=== PATIENT | male | born 1935 | race Caucasian/White ===

== ENCOUNTER 2019-05-22 12:22 | Outpatient (CLI) | payer OTHER, SELFPAY ==
[2019-05-22 14:34] LABS: Basophils % 0.3 %; Eosinophils # 0.1 10^3/uL (0.0-0.8); Hemoglobin 9.7 g/dL (11.7-16.6); Lymphocytes # 0.4 10^3/uL (0.8-4.8); Lymphocytes % 10.7 %; Mean Corpuscular HGB Conc 31.3 g/dL (30.0-36.0); Mean Corpuscular Hemoglobin 30.4 pg (28.0-34.0); Mean Corpuscular Volume 97.2 fL (80-94); Mean Platelet Volume 10.8 fL (7.4-10.4); Monocytes # 0.3 10^3/uL (0.2-0.9); Monocytes % 7.9 %; Neutrophils # 3.1 10^3/uL (1.8-7.7); Neutrophils % 78.6 %; Nucleated Red Blood Cells % 0 %; Platelet Count 139 10^3/cmm (130-400); Red Blood Count 3.19 10^6/uL (4.1-5.3); Red Cell Distribution Width 14.6 % (12.1-15.1); White Blood Count 3.9 10^3/uL (4.0-10.0)
[2019-05-22 14:49] LABS: Alanine Aminotransferase 22 U/L (0-41); Albumin Level 3.8 g/dL (3.5-5.2); Alkaline Phosphatase 57 IU/L (40-130); Anion Gap 12.4 (5-19); Aspartate Amino Transferase 31 U/L (0-40); Blood Urea Nitrogen 33 mg/dL (8-23); Calcium 9.5 mg/dL (8.5-10.5); Carbon Dioxide 24 mmol/L (22-29); Chloride 106 mmol/L (98-107); Globulin 2.7 g/dL (1.3-4.6); Glucose 266 mg/dL (65-115); Lactate Dehydrogenase 234 U/L (135-225); Potassium 4.4 mmol/L (3.5-5.1); Sodium 138 mmol/L (136-145); Total Bilirubin 0.2 mg/dL (0.15-1.2); Total Protein 6.5 g/dL (6.6-8.7)
[2019-05-22 18:31] LABS: Hepatitis B Surface AB. 3.5 (0-8.5); Hepatitis B Surface Antigen. Non-Reactive (Nonreactive)
--- NOTE | 2019-05-22 19:17 | ONC FU_ITS ---
Dr. Patiño Patient Follow-Up Note Patient: Earle Curiel Unit #: [id number]: [id number] Dicatated By: Rich Patiño M.D.Date of Visit:May 22, 2019 Onc Med Follow-up/Prog Note Chief Complaint: Lymphoma. 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 On 07/26/2017 he was admitted to the hospital after nearly passing out at home. He had been having melena, and his stool FIT was positive. He had to be transfused 3 units of PRBC. He underwent EGD and colonoscopy on 07/28/2017. The colonoscopy was unremarkable except for a few small diverticuli in the distal sigmoid colon. The EGD showed a pedunculated, hyperplastic appearing gastric polyp measuring 3 x 3 mm. It was completely excised endoscopically. Also noted was a single cratered chronic malignant appearing gastric ulcers ranging in size from 4 to 6 mm. 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 The lymphoid cells were CD20 and BCL-2 positive. CD3, CD5, and CD10 staining was noted in scattered lymphoid cells. Cyclin D1 was negative. The Ki-67 proliferation index was estimated 10-15%. Helicobacter pylori was not identified in either biopsy on Diff Quik stain. His CT abdomen/pelvis on 07/26/2017 showed a moderate amount of pericardial fluid. There were very small bilateral pleural effusions. There was possibly some thickening of the lower esophagus. Small calcifications are seen throughout the pancreas suggestive of prior episodes of pancreatitis. There were a few borderline prominent mesenteric lymph nodes with very subtle increased attenuation in the surrounding mesenteric fat, appearance of which was felt to be nonspecific. There was no retroperitoneal adenopathy. Prostate was noted to be enlarged. Echocardiogram showed normal left ventricular function with ejection fraction estimated at 60%. There was grade 1 diastolic dysfunction. The pericardium appeared normal without effusion. I had seen him initially on 08/18/2017. 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 Lauren for radiation. He completed treatment on 11/26/2017 to a total dose of 3000 cGy. Repeat EGD on 02/22/2018 showed a hyperplastic appearing sessile polyp in the gastric body measuring 2 x 2 mm. It was removed endoscopically. There was evidence of gastritis and duodenitis. Pathology on the polyp showed benign polypoid gastric mucosa. The other gastric biopsies showed benign uniform gastric mucosa. There was no evidence of malignancy. Helicobacter pylori stains at both biopsy sites were negative. His other medical illnesses include hypertension, hyperlipidemia, type II diabetes, and benign prostatic hypertrophy. He was treated for tick fever in the past. He is a nonsmoker. INTERIM HISTORY: Surveillance CT of the abdomen/pelvis on 02/15/2019 showed enlarging central mesenteric lymph nodes, largest measuring 3.0 x 1.7 cm. These had increased in size and number compared to the prior CT from October 2018. Lobulated cysts or cyst within the right lobe of the liver measuring 3.5 cm appeared stable. Cardiomegaly and moderately sized circumferential pericardial effusion also appeared stable. The prostate was noted to be markedly enlarged. Further evaluation with restaging PET/CT on 05/06/2019 showed a new FDG avid central mesenteric mass measuring 5.5 x 3.5 cm, SUV 7.6, consistent with new will lymphoma. Smaller adjacent mesenteric lymph nodes were also FDG positive and consistent with lymphoma. There were additional small FDG positive nodes noted in the right internal mammary, anterior mediastinal, and right pre-vascular territories. Stomach activity was noted to be physiologic. He is seen for a follow-up visit. He says he is still feeling all right. He says he has been tired quite a bit, but he is doing light work. ECOG score is 1. Appetite is good and by our scale his weight is up 7 pounds since my initial visit with him. He does not have fever or night sweats. He does not complain of shortness of breath, cough, or chest pain. He has no GI complaints other than his stools are sometimes loose. He had seen a urologist for incomplete bladder emptying, and his bladder function had subsequently improved with medication. He has no significant joint or bone pain. He does not complain of headache or dizziness. He says he has lost use of his right index and middle fingers, but that was not anything recent. Medications: Acarbose 1 Tablet (of 100 mg) Oral t.i.d., Actos 1 Tablet (of 45 mg) Oral daily, Carafate 1 Tablet (of 1 G) Tablet Oral b.i.d., Ferrous Sulfate 1 Tablet (of 325 (65 fe) mg) Oral b.i.d., Lantus 31 Units (of 100 Units/mL) Subcutaneous every am, Lisinopril-Hydrochlorothiazide 1 Tablet (of 20-12.5 mg) Oral daily, Multi Vitamin/Minerals 1 Tablet Oral daily, Pantoprazole Sodium 1 Tablet (of 40 mg) Tablet, enteric coated Oral b.i.d., Simvastatin 1 Tablet (of 40 mg) Oral daily, Terazosin HCl 1 Capsule (of 2 mg) Oral b.i.d., Vitamin B-12 1 Tablet (of 1000 mcg) Oral daily Allergies: No Known Allergies. Review of Systems: Constitutional - His energy is low. He is doing light work. His appetite is good and his weight is up 5 pounds. No fever, chills, hot flashes, or night sweats. ECOG score is 1, ENMT - He has sinus drainage. No mouth sores. No sore throat or difficulty swallowing, Hematologic/Lymphatic - No abnormal bruising or bleeding, Respiratory - No shortness of breath. No cough. No pleuritic pain or hemoptysis, Cardiovascular - No angina pain. No palpitations, Gastrointestinal - No nausea or vomiting. No heartburn or acid reflux. He has occasional loose stools. No blood in the stool or black stools, Genitourinary (M) - He has seen a urologist for incomplete bladder emptying. His bladder function has improved. He has no dysuria or hematuria and no urgency or incontinence, Musculoskeletal - No joint or bone pain, Integumentary - No skin complications, Neurologic - No headache. He has occasional dizziness. He has numbness in his right index and middle fingers, Psychiatric - No anxiety or depression. No insomnia. Vital Signs: Performed on May 22, 2019 12:50 Height - 67.00 in Weight - 163.8 lbs (HIGH) BSA - 1.86 sq.m BMI - 25.65 Temperature - 97.7 F (LOW) Pulse - 84 /min Respiration - 14 /min BP - 132/60 mm(hg) O2 Sat - 96 % Pain - 0 Physical Examination: Constitutional - He looks a little bit weak generally, Eyes - Sclerae nonicteric. Conjunctivae clear, ENMT - No lesions noted in the oral cavity, Hematologic/Lymphatic - No cervical, clavicular, or axillary adenopathy, Respiratory - Lungs are clear with good air movement bilaterally, Cardiovascular - Heart rhythm is regular. There is no murmur, gallop, or rub noted, Abdomen - Soft. Liver and spleen are not enlarged. There is no abdominal mass or ascites noted and there is no inguinal adenopathy, Extremities - No edema, Integumentary - No rashes. No suspicious skin lesions noted, Neurologic - No focal neurologic deficits noted. Impression: 1. Patient with localized gastric marginal zone lymphoma, H. 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 2. He underwent treatment with radiation, completed on 11/26/2017 to a total dose of 3,000 cGy. He had a good response by followup EGD. 3. He presented with acute GI bleeding and he had moderately severe anemia. His other medical illnesses include: 4. Hypertension. 5. Hyperlipidemia. 6. Type II diabetes. 7. Benign prostatic hypertrophy. A surveillance CT of the abdomen/pelvis on 02/15/2019 showed enlarging central mesenteric lymph nodes, largest measuring 3.0 x 1.7 cm. Further evaluation with restaging PET/CT on 05/06/2019 showed a new FDG avid central mesenteric mass measuring 5.5 x 3.5 cm, SUV 7.6, consistent with new will lymphoma. Smaller adjacent mesenteric lymph nodes were also FDG positive and consistent with lymphoma. There were additional small FDG positive nodes noted in the right internal mammary, anterior mediastinal, and right pre-vascular territories. Stomach activity was noted to be physiologic. Overall, the findings are consistent with progression of the marginal zone lymphoma, now involving lymph nodes on both sides of the diaphragm. Plan: The CT and PET/CT findings were reviewed with the patient. We discussed the clinical implications. He has had progression of the lymphoma, though he does not appear to be overtly symptomatic with it. By clinical evaluation, it was appear likely that he still has low-grade disease, and he has recommended to undergo treatment with 4-6 cycles of bendamustine/rituximab. He will have baseline laboratory studies today to include CBC, comprehensive metabolic profile, LDH level, and hepatitis B screening. He prefers to wait until the first week of June to begin his treatment. I will attempt to administer it through peripheral IV. Signed By: Rich Patiño M.D. <<Signature on File>>
[2019-05-23 16:57] LABS: Iron 77 ug/dL (59-158); Percent Saturation 34.3 % (20-50); Total Iron Binding Capacity 224 mcg/dl; Unsaturated Iron Binding 147 ug/dL (112-347); Vitamin B12 748 pg/mL (232-1245)
== END 2019-05-22 12:23 | disposition home or self-care (01) ==
PROVIDERS: Family Provider Emergency Medicine Emergency Medical Services; PCP Emergency Medicine Emergency Medical Services; Visit Provider Internal Medicine Medical Oncology
DX: C83.08 Small cell B-cell lymphoma, lymph nodes of multiple sites (principal); I10 Essential (primary) hypertension; E78.5 Hyperlipidemia, unspecified; E11.9 Type 2 diabetes mellitus without complications; N40.0 Benign prostatic hyperplasia without lower urinary tract symptoms; I51.7 Cardiomegaly; Z79.4 Long term (current) use of insulin; Z79.899 Other long term (current) drug therapy; Z92.3 Personal history of irradiation
CPT/HCPCS: 36415; 80053; 82607; 83540; 83550; 83615; 85025; 86705; 86706; 87340; 99214

== ENCOUNTER 2019-06-08 10:03 | Day surgery (SDC) | payer OTHER, SELFPAY ==
--- NOTE | 2019-06-08 10:32 | ANES.PREANE2 ---
Pre-Anesthetic Assessment Pre-Anesthetic Assessment: Height/Weight: Height 1.7 m Weight 74.298 kg Preop Diagnosis: Lymphoma Proposed Procedure: Operation Date: 06/08/19 11:30 Proposed Procedures p Bone Marrow Biospy With Aspiration(Not Applicable) - Kirt Arcos MD Last Intake: 21:00 Exam: Pre-Anes Outpt Exam: alert, oriented x 3, clear to auscultation bilaterally and regular rate & rhythm Airway: Submandibular: WNL Cervical ROM: WNL MP: 1 Dentition: Caps CV/HEM: CV/HEM: HTN Comments: rx'd x 2y 2 blocks/2 FOSwithout angina/MATTSON : Comments: BPH GI: GI: GERD Comments: GI bleed transfused 3y ago Metabolic: Metabolic: DM (rx'd x 12y, normally ) and Hyperlipidemia Comments: normally 100-220, bottoms out 1x/week Anesthetic Plan: ASA status: 3 Anesthesia: MAC Data Anesthesia Cardiac Studies: No Data to Display
[2019-06-08 10:53] VITALS: BMI 25.3
[2019-06-08 11:02] VITALS: BP 131/96; PULSE 68; RESP 18; TEMP 36.3; O2SAT 97
[2019-06-08] MEDS: sodium chloride 0.9% 1,000 ML 30 ML (11:06)
[2019-06-08 11:11] LABS: Glucose Point of Care 149 mg/dL (70-110)
--- NOTE | 2019-06-08 12:00 | P.PCN_ITS ---
Bone Marrow Biopsy Bone Marrow Biopsy: I was consulted by [] office regarding bone marrow biopsy on Earle Oliveira. Briefly, the patient is a [83] year old Male with History of non-Hodgkin lymphoma now with anemia and recurrence of disease[]. In the Outpatient Services Department, with nursing staff and laboratory parvin hnologists in attendance, the procedure was discussed with the patient. Appropriate consent form had been signed. Appropriate alternatives, benefits and risks of procedure were discussed with the patient and he was pre- operatively assessed with a history and physical by myself and cleared for the biopsy procedure. The patient did request IV sedation and that was provided by the Anesthesia Department. And right posterior iliac area was prepared under aseptic condition, local anesthesia was given and about 15 mL of bone marrow aspirate and core biopsy was obtained, specimen was sent for routine histopathology, flow cytometry, cytogenetics and FISH for MDS. Patient tolerated procedure well and postprocedure instructions were given to the nursing. Thank you for allowing me to participate in this patient's care and diagnosis. Coding Level of Care Code Acute Bike Mechanic for Zainab Rashid
[2019-06-08 12:20] VITALS: BP 112/60; PULSE 64; RESP 16; TEMP 36.8; O2SAT 96
--- NOTE | 2019-06-08 12:34 | ANE.PACU2 ---
 Inpatient post-anesthesia follow up: Airway intact: Yes Vital signs: Temperature 98.2 F Pulse Rate 64 Respiratory Rate 16 Blood Pressure 112/60 Pulse Oximetry 96 Oxygen Delivery Me thod Nasal Cannula Oxygen Flow Rate 2 Fraction of Inspir ed Oxygen Hydration adequate: Yes Nausea and vomiting: No Pain level: 2 Mental status: Baseline
[2019-06-08 12:36] VITALS: BP 121/67; PULSE 66; RESP 18; O2SAT 96
--- NOTE | 2019-06-08 13:37 | ANE.PACU2 ---
 Inpatient post-anesthesia follow up: Vital signs: Temperature 98.2 F Pulse Rate 66 Respiratory Rate 18 Blood Pressure 121/67 Pulse Oximetry 96 Oxygen Delivery Me thod Room Air Oxygen Flow Rate 2 Fraction of Inspir ed Oxygen Hydration adequate: Yes
[2019-06-09 11:05] LABS: Hematocrit 33.6 % (42.0-52.0); Hemoglobin 10.5 g/dL (11.7-16.6); Mean Corpuscular HGB Conc 31.3 g/dL (30.0-36.0); Mean Corpuscular Hemoglobin 31.3 pg (28.0-34.0); Mean Corpuscular Volume 100.3 fL (80-94); Mean Platelet Volume 10.8 fL (7.4-10.4); Platelet Count 151 10^3/cmm (130-400); Red Blood Count 3.35 10^6/uL (4.1-5.3); Red Cell Distribution Width 14.7 % (12.1-15.1); White Blood Count 4.2 10^3/uL (4.0-10.0)
[2019-06-09 12:21] LABS: Band Neutrophils Absolute 0.7 10^3/cmm (0.0-1.2); Eosinophils 2 %; Lymphocytes 3 %; Monocytes Absolute 0.3 10^3/cmm (0.1-0.6); Platelet Estimate Normal (Normal); Segmented Neutrophils 72 %; Total Cells Counted 100 (0-100)
[2019-06-14 13:13] LABS: Miscellaneous Test See Scanned Lab Rpt
[2019-06-16 09:16] LABS: Miscellaneous Test See Scanned Lab Rpt
[2019-06-21 12:49] LABS: Clinical Indication See Report; Specimen Type See Report
== END 2019-06-08 12:59 | disposition home or self-care (01) ==
PROVIDERS: Family Provider Emergency Medicine Emergency Medical Services; PCP Emergency Medicine Emergency Medical Services; Visit Provider Internal Medicine Hematology & Oncology
PROC: 07DT3ZX Extraction of Bone Marrow, Percutaneous Approach, Diagnostic (ICD-10-PCS; CPT 38222; principal; 2019-06-08 11:30)
DX: C85.88 Other specified types of non-Hodgkin lymphoma, lymph nodes of multiple sites (principal); C88.4 Extranodal marginal zone B-cell lymphoma of mucosa-associated lymphoid tissue [MALT-lymphoma]; D64.9 Anemia, unspecified; I10 Essential (primary) hypertension; N40.0 Benign prostatic hyperplasia without lower urinary tract symptoms; K21.9 Gastro-esophageal reflux disease without esophagitis; E11.9 Type 2 diabetes mellitus without complications; E78.5 Hyperlipidemia, unspecified
CPT/HCPCS: 12345; 36415; 36416; 38222; 82962; 85007; 85027; 85097; 88237; 88264; 88305; 88311; 88313; 88367; 88374; J2704; J7030

== ENCOUNTER 2019-06-09 12:21 | Outpatient (CLI) | payer OTHER, SELFPAY | END 2019-06-09 12:22 | disposition home or self-care (01) | LOC: ONCMED 12:22 | PROVIDERS: Family Provider Emergency Medicine Emergency Medical Services; PCP Emergency Medicine Emergency Medical Services; Visit Provider Internal Medicine Medical Oncology | DX: Z01.89 Encounter for other specified special examinations (principal) ==

== ENCOUNTER 2019-06-30 06:29 | Outpatient (RCR) | payer OTHER, SELFPAY ==
[2019-06-28 16:53] LABS: Basophils % 0.2 %; Eosinophils # 0.1 10^3/uL (0.0-0.8); Eosinophils % 1.8 %; Hematocrit 33.9 % (42.0-52.0); Hemoglobin 10.4 g/dL (11.7-16.6); Lymphocytes # 0.4 10^3/uL (0.8-4.8); Lymphocytes % 9.4 %; Mean Corpuscular HGB Conc 30.7 g/dL (30.0-36.0); Mean Corpuscular Hemoglobin 30.8 pg (28.0-34.0); Mean Corpuscular Volume 100.3 fL (80-94); Mean Platelet Volume 11.4 fL (7.4-10.4); Monocytes # 0.4 10^3/uL (0.2-0.9); Monocytes % 8.1 %; Neutrophils # 3.6 10^3/uL (1.8-7.7); Neutrophils % 80.1 %; Nucleated Red Blood Cells % 0 %; Platelet Count 148 10^3/cmm (130-400); Red Blood Count 3.38 10^6/uL (4.1-5.3); Red Cell Distribution Width 14.6 % (12.1-15.1); White Blood Count 4.5 10^3/uL (4.0-10.0)
[2019-06-28 16:58] LABS: Alanine Aminotransferase 22 U/L (0-41); Albumin Level 4.2 g/dL (3.5-5.2); Alkaline Phosphatase 56 IU/L (40-130); Anion Gap 15.6 (5-19); Aspartate Amino Transferase 26 U/L (0-40); Blood Urea Nitrogen 31 mg/dL (8-23); Calcium 9.6 mg/dL (8.5-10.5); Carbon Dioxide 25 mmol/L (22-29); Chloride 106 mmol/L (98-107); Glucose 154 mg/dL (65-115); Osmolality Calculated 294 mOsm/kg (285-295); Potassium 4.6 mmol/L (3.5-5.1); Sodium 142 mmol/L (136-145); Total Bilirubin 0.4 mg/dL (0.15-1.2); Total Protein 6.2 g/dL (6.6-8.7)
[2019-06-29] MEDS: acetaminophen 325 mg Tablet 650 MG PO (10:51)
[2019-06-29] MEDS: sodium chloride 0.9% 1,000 ML 75 ML IV (11:47)
--- NOTE | 2019-06-29 16:52 | ONC FU_ITS ---
Dr. Patiño Patient Follow-Up Note Patient: Earle Curiel Unit #: [id number]: [id number] Dicatated By: Rich Patiño M.D.Date of Visit:Jun 29, 2019 Onc Med Follow-up/Prog Note Chief Complaint: Lymphoma. 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 On 07/26/2017 he was admitted to the hospital after nearly passing out at home. He had been having melena, and his stool FIT was positive. He had to be transfused 3 units of PRBC. He underwent EGD and colonoscopy on 07/28/2017. The colonoscopy was unremarkable except for a few small diverticuli in the distal sigmoid colon. The EGD showed a pedunculated, hyperplastic appearing gastric polyp measuring 3 x 3 mm. It was completely excised endoscopically. Also noted was a single cratered chronic malignant appearing gastric ulcers ranging in size from 4 to 6 mm. 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 The lymphoid cells were CD20 and BCL-2 positive. CD3, CD5, and CD10 staining was noted in scattered lymphoid cells. Cyclin D1 was negative. The Ki-67 proliferation index was estimated 10-15%. Helicobacter pylori was not identified in either biopsy on Diff Quik stain. His CT abdomen/pelvis on 07/26/2017 showed a moderate amount of pericardial fluid. There were very small bilateral pleural effusions. There was possibly some thickening of the lower esophagus. Small calcifications are seen throughout the pancreas suggestive of prior episodes of pancreatitis. There were a few borderline prominent mesenteric lymph nodes with very subtle increased attenuation in the surrounding mesenteric fat, appearance of which was felt to be nonspecific. There was no retroperitoneal adenopathy. Prostate was noted to be enlarged. Echocardiogram showed normal left ventricular function with ejection fraction estimated at 60%. There was grade 1 diastolic dysfunction. The pericardium appeared normal without effusion. I had seen him initially on 08/18/2017. 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 Lauren for radiation. He completed treatment on 11/26/2017 to a total dose of 3000 cGy. Repeat EGD on 02/22/2018 showed a hyperplastic appearing sessile polyp in the gastric body measuring 2 x 2 mm. It was removed endoscopically. There was evidence of gastritis and duodenitis. Pathology on the polyp showed benign polypoid gastric mucosa. The other gastric biopsies showed benign uniform gastric mucosa. There was no evidence of malignancy. Helicobacter pylori stains at both biopsy sites were negative. He continued on observation/expectant management. Surveillance CT of the abdomen/pelvis on 02/15/2019 showed enlarging central mesenteric lymph nodes, largest measuring 3.0 x 1.7 cm. These had increased in size and number compared to the prior CT from October 2018. Lobulated cysts or cyst within the right lobe of the liver measuring 3.5 cm appeared stable. Cardiomegaly and moderately sized circumferential pericardial effusion also appeared stable. The prostate was noted to be markedly enlarged. Further evaluation with restaging PET/CT on 05/06/2019 showed a new FDG avid central mesenteric mass measuring 5.5 x 3.5 cm, SUV 7.6, consistent with new will lymphoma. Smaller adjacent mesenteric lymph nodes were also FDG positive and consistent with lymphoma. There were additional small FDG positive nodes noted in the right internal mammary, anterior mediastinal, and right pre-vascular territories. Stomach activity was noted to be physiologic. I had seen him for a follow-up visit on 05/22/2019. As he had definite PET/CT evidence of disease progression, he was recommended to undergo a course of chemotherapy with bendamustine/Rituxan. He had preferred to delay starting treatment for at least a month. However, at that time, it was noted that he was still moderately anemic with hemoglobin 9.7 g. The red cell indices were slightly macrocytic. B12 was normal at 748 pg/mL and the transferrin saturation was normal at 34%. With those findings he underwent bone marrow aspiration/biopsy on 06/08/2019. There were no diagnostic findings. The cellularity was relatively low at 10 to 20%, but with trilineage hematopoiesis and mild erythroid hyperplasia. There were no dysplastic changes noted. There was no evidence of involvement with lymphoma. There was abundant storage iron. The chromosome analysis was normal and the FISH panel for MDS was unrevealing. His other medical illnesses include hypertension, hyperlipidemia, type II diabetes, and benign prostatic hypertrophy. He was treated for tick fever in the past. He is a nonsmoker. INTERIM HISTORY: He returns now to initiate treatment. He has been feeling a little better generally. He says his energy is better, and he pretty much has normal activity. ECOG score is 0. He has good appetite. He complains that his stomach is getting bigger. He has not had fever or night sweats. He has no shortness of breath or cough. He has had pain occasionally in the left chest area. It tends to occur after more strenuous activity, but it does sound muscular. He has no GI complaints other than his bowels are sometimes runny. He has some urgency with urination and he has incomplete bladder emptying. He has no significant joint or bone pain. He has no headache or dizziness. He has lost use of his right index and middle fingers from previous injury. He has no other focal neurologic symptoms. Medications: Acarbose 1 Tablet (of 100 mg) Oral t.i.d., Actos 1 Tablet (of 45 mg) Oral daily, Ferrous Sulfate 1 Tablet (of 325 (65 fe) mg) Oral b.i.d., Ferrous Sulfate 1 Tablet (of 325 (65 fe) mg) Oral daily, Insulin Glargine Subcutaneous t.i.d., Lisinopril-Hydrochlorothiazide 1 Tablet (of 20-12.5 mg) Oral daily, Multi Vitamin/Minerals 1 Tablet Oral daily, NovoLIN 70/30 Subcutaneous t.i.d., Pantoprazole Sodium 1 Tablet (of 40 mg) Tablet, enteric coated Oral b.i.d., Simvastatin 1 Tablet (of 80 mg) Oral daily, Terazosin HCl 1 Capsule (of 2 mg) Oral b.i.d., Vitamin B-12 1 Tablet (of 1000 mcg) Oral daily Allergies: No Known Allergies. Review of Systems: Constitutional - His energy level is overall good. He is able to his normal activities at home. His appetite is good and weight is stable. No fever, chills, hot flashes, or night sweats. ECOG score is 0, ENMT - He has seasonal allergies No mouth sores. No sore throat or difficulty swallowing, Hematologic/Lymphatic - No abnormal bruising or bleeding, Respiratory - No shortness of breath. No cough. No pleuritic pain or hemoptysis, Cardiovascular - No angina pain. No palpitations, Gastrointestinal - No nausea or vomiting. No heartburn or acid reflux. He is having occasional loose stools. No constipation. No blood in the stool or black stools, Genitourinary (M) - No dysuria or hematuria. No urinary frequency. He has urgency and does not feel he is completely emptying his bladder. No incontinence, Musculoskeletal - He occasinally has pain in his left chest area. It tends to occur after more strenuous activity, Integumentary - No skin complications, Neurologic - No headache or dizziness. He has loss of sensation and use of his right index and middle fingers, Psychiatric - No anxiety or depression. No insomnia. Vital Signs: Performed on Jun 29, 2019 09:51 Height - 67.00 in Weight - 161.0 lbs (LOW) BSA - 1.84 sq.m BMI - 25.22 Temperature - 98.2 F (LOW) Pulse - 86 /min Respiration - 20 /min BP - 149/71 mm(hg) (HIGH) O2 Sat - 100 % Pain - 0 Physical Examination: Constitutional - He looks pretty good generally, Eyes - Sclerae nonicteric. Conjunctivae clear, ENMT - No lesions noted in the oral cavity, Hematologic/Lymphatic - No cervical, clavicular, or axillary adenopathy, Respiratory - Lungs are clear with good air movement bilaterally, Cardiovascular - Heart rhythm is regular. There is no murmur, gallop, or rub noted, Abdomen - Soft. Liver and spleen are not enlarged. There is no abdominal mass or ascites noted and there is no inguinal adenopathy, Extremities - No edema, Neurologic - No focal neurologic deficits noted. Lab/Imaging: White blood cell count 4500, and platelet count 148,000.CBC shows hemoglobin 10.4 g, comprehensive metabolic profile shows elevated BUN and creatinine at 31 and 1.4 mg/dL, similar to previous studies. Bilirubin and liver enzymes are normal. Impression: 1. 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 2. He underwent treatment with radiation, completed on 11/26/2017 to a total dose of 3,000 cGy. He had a good response by followup EGD. 3. He had evidence of disease progression PET/CT in May 2019 with multiple sites of lymph node involvement. 4. He has persistent anemia of unclear etiology. His bone marrow aspiration/biopsy on 06/08/2019 showed no diagnostic findings. His other medical illnesses include: 5. Hypertension. 6. Hyperlipidemia. 7. Type II diabetes. 8. Benign prostatic hypertrophy. Plan: He will now begin his first cycle of treatment with bendamustine/rituximab, administered on days 1 and 2 of a 28-day cycle. The plan will be to administer 4-6 cycles, depending on response and tolerance. I reviewed anticipated side effects with the chemotherapy which may include nausea, fatigue, alopecia, and low blood counts, among others. I reviewed the potential for fever/chills or other symptoms of infusion reaction with the rituximab and we also discussed the fact that it may cause some weakening of his immune system. He is aware that his anti-medic will include steroid and that it will likely increase his blood sugar for at least the next day or 2. His blood counts will be monitored weekly. He will be scheduled for a follow-up visit in 4 weeks. Signed By: Rich Patiño M.D. <<Signature on File>>
[2019-06-30] MEDS: sodium chloride 0.9% 250 ML IV (10:16)
[2019-06-30] MEDS: palonosetron 0.25 mg/5 mL SDV IV (10:16)
== END 2019-07-04 23:59 | disposition home or self-care (01) ==
LOC: ONCMED 06:29
PROVIDERS: Family Provider Emergency Medicine Emergency Medical Services; PCP Emergency Medicine Emergency Medical Services; Visit Provider Internal Medicine Medical Oncology
DX: Z51.12 Encounter for antineoplastic immunotherapy (principal); Z51.11 Encounter for antineoplastic chemotherapy; C83.09 Small cell B-cell lymphoma, extranodal and solid organ sites; I10 Essential (primary) hypertension; E78.5 Hyperlipidemia, unspecified; E11.9 Type 2 diabetes mellitus without complications; N40.0 Benign prostatic hyperplasia without lower urinary tract symptoms; Z79.4 Long term (current) use of insulin; Z79.899 Other long term (current) drug therapy; Z92.3 Personal history of irradiation
CPT/HCPCS: 80053; 85025; 96367; 96375; 96413; 96415; 96417; 99214; J1100; J1200; J2405; J2469; J7030; J7040; J7050; J9034; J9312

== ENCOUNTER 2019-08-03 12:20 | Outpatient (RCR) | payer OTHER, SELFPAY ==
[2019-07-05 15:41] LABS: Eosinophils # 0.1 10^3/uL (0.0-0.8); Eosinophils % 1.6 %; Hematocrit 30.8 % (42.0-52.0); Hemoglobin 9.6 g/dL (11.7-16.6); Lymphocytes # 0.1 10^3/uL (0.8-4.8); Lymphocytes % 1.3 %; Mean Corpuscular HGB Conc 31.2 g/dL (30.0-36.0); Mean Corpuscular Hemoglobin 31.2 pg (28.0-34.0); Monocytes # 0.3 10^3/uL (0.2-0.9); Monocytes % 6.7 %; Neutrophils # 3.4 10^3/uL (1.8-7.7); Neutrophils % 89.9 %; Nucleated Red Blood Cells % 0 %; Platelet Count 125 10^3/cmm (130-400); Red Blood Count 3.08 10^6/uL (4.1-5.3); Red Cell Distribution Width 14.6 % (12.1-15.1); White Blood Count 3.8 10^3/uL (4.0-10.0)
[2019-07-12 18:21] LABS: Basophils % 0.3 %; Eosinophils # 0.1 10^3/uL (0.0-0.8); Hematocrit 30.9 % (42.0-52.0); Hemoglobin 9.6 g/dL (11.7-16.6); Lymphocytes # 0.3 10^3/uL (0.8-4.8); Lymphocytes % 6.8 %; Mean Corpuscular HGB Conc 31.1 g/dL (30.0-36.0); Mean Corpuscular Hemoglobin 31.2 pg (28.0-34.0); Mean Corpuscular Volume 100.3 fL (80-94); Mean Platelet Volume 11.6 fL (7.4-10.4); Monocytes # 0.5 10^3/uL (0.2-0.9); Monocytes % 12.1 %; Neutrophils # 3.1 10^3/uL (1.8-7.7); Neutrophils % 78.5 %; Nucleated Red Blood Cells % 0 %; Platelet Count 131 10^3/cmm (130-400); Red Blood Count 3.08 10^6/uL (4.1-5.3); Red Cell Distribution Width 14.8 % (12.1-15.1)
[2019-07-19 17:11] LABS: Eosinophils # 0.1 10^3/uL (0.0-0.8); Eosinophils % 1.4 %; Hematocrit 29.9 % (42.0-52.0); Hemoglobin 9.5 g/dL (11.7-16.6); Lymphocytes # 0.2 10^3/uL (0.8-4.8); Lymphocytes % 4.3 %; Mean Corpuscular HGB Conc 31.8 g/dL (30.0-36.0); Mean Corpuscular Volume 100.7 fL (80-94); Mean Platelet Volume 11.6 fL (7.4-10.4); Monocytes # 0.4 10^3/uL (0.2-0.9); Monocytes % 11.3 %; Neutrophils # 2.9 10^3/uL (1.8-7.7); Neutrophils % 82.4 %; Nucleated Red Blood Cells % 0 %; Platelet Count 120 10^3/cmm (130-400); Red Blood Count 2.97 10^6/uL (4.1-5.3); Red Cell Distribution Width 14.7 % (12.1-15.1); White Blood Count 3.5 10^3/uL (4.0-10.0)
[2019-07-19 18:35] LABS: Alanine Aminotransferase 19 U/L (0-41); Alkaline Phosphatase 54 IU/L (40-130); Anion Gap 15.4 (5-19); Aspartate Amino Transferase 25 U/L (0-40); Blood Urea Nitrogen 23 mg/dL (8-23); Calcium 9.5 mg/dL (8.5-10.5); Carbon Dioxide 23 mmol/L (22-29); Chloride 107 mmol/L (98-107); Globulin 2.1 g/dL (1.3-4.6); Glucose 164 mg/dL (65-115); Lactate Dehydrogenase 220 U/L (135-225); Osmolality Calculated 292 mOsm/kg (285-295); Potassium 4.4 mmol/L (3.5-5.1); Sodium 141 mmol/L (136-145); Total Bilirubin 0.4 mg/dL (0.15-1.2); Total Protein 6.1 g/dL (6.6-8.7)
[2019-07-26 19:31] LABS: Basophils % 0.3 %; Eosinophils # 0.1 10^3/uL (0.0-0.8); Eosinophils % 3.1 %; Hematocrit 32.4 % (42.0-52.0); Hemoglobin 9.8 g/dL (11.7-16.6); Lymphocytes # 0.2 10^3/uL (0.8-4.8); Lymphocytes % 6.5 %; Mean Corpuscular HGB Conc 30.2 g/dL (30.0-36.0); Mean Corpuscular Hemoglobin 30.2 pg (28.0-34.0); Mean Corpuscular Volume 99.7 fL (80-94); Monocytes # 0.4 10^3/uL (0.2-0.9); Monocytes % 10.8 %; Neutrophils # 2.6 10^3/uL (1.8-7.7); Nucleated Red Blood Cells % 0 %; Platelet Count 111 10^3/cmm (130-400); Red Blood Count 3.25 10^6/uL (4.1-5.3); Red Cell Distribution Width 14.7 % (12.1-15.1); White Blood Count 3.3 10^3/uL (4.0-10.0)
[2019-07-26 20:09] LABS: Alanine Aminotransferase 20 U/L (0-41); Albumin Level 4.2 g/dL (3.5-5.2); Alkaline Phosphatase 54 IU/L (40-130); Anion Gap 17.8 (5-19); Aspartate Amino Transferase 30 U/L (0-40); Blood Urea Nitrogen 31 mg/dL (8-23); Calcium 9.5 mg/dL (8.5-10.5); Carbon Dioxide 22 mmol/L (22-29); Chloride 103 mmol/L (98-107); Globulin 2.5 g/dL (1.3-4.6); Glucose 220 mg/dL (65-115); Lactate Dehydrogenase 261 U/L (135-225); Osmolality Calculated 290 mOsm/kg (285-295); Potassium 4.8 mmol/L (3.5-5.1); Sodium 138 mmol/L (136-145); Total Bilirubin 0.3 mg/dL (0.15-1.2); Total Protein 6.7 g/dL (6.6-8.7)
[2019-07-27] MEDS: acetaminophen 325 mg Tablet 650 MG PO (11:30)
[2019-07-27] MEDS: sodium chloride 0.9% 500 ML 75 ML IV (12:00)
[2019-07-28] MEDS: sodium chloride 0.9% 100 ML 75 ML IV (09:35)
[2019-07-28] MEDS: palonosetron 0.25 mg/5 mL SDV IV (09:38)
--- NOTE | 2019-07-29 09:46 | ONC FU_ITS ---
Dr. Patiño Patient Follow-Up Note Patient: Earle Curiel Unit #: [id number]: [id number] Dicatated By: Rich Patiño M.D.Date of Visit:Jul 27, 2019 Onc Med Follow-up/Prog Note Chief Complaint: Lymphoma. 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 On 07/26/2017 he was admitted to the hospital after nearly passing out at home. He had been having melena, and his stool FIT was positive. He had to be transfused 3 units of PRBC. He underwent EGD and colonoscopy on 07/28/2017. The colonoscopy was unremarkable except for a few small diverticuli in the distal sigmoid colon. The EGD showed a pedunculated, hyperplastic appearing gastric polyp measuring 3 x 3 mm. It was completely excised endoscopically. Also noted was a single cratered chronic malignant appearing gastric ulcers ranging in size from 4 to 6 mm. 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 The lymphoid cells were CD20 and BCL-2 positive. CD3, CD5, and CD10 staining was noted in scattered lymphoid cells. Cyclin D1 was negative. The Ki-67 proliferation index was estimated 10-15%. Helicobacter pylori was not identified in either biopsy on Diff Quik stain. His CT abdomen/pelvis on 07/26/2017 showed a moderate amount of pericardial fluid. There were very small bilateral pleural effusions. There was possibly some thickening of the lower esophagus. Small calcifications are seen throughout the pancreas suggestive of prior episodes of pancreatitis. There were a few borderline prominent mesenteric lymph nodes with very subtle increased attenuation in the surrounding mesenteric fat, appearance of which was felt to be nonspecific. There was no retroperitoneal adenopathy. Prostate was noted to be enlarged. Echocardiogram showed normal left ventricular function with ejection fraction estimated at 60%. There was grade 1 diastolic dysfunction. The pericardium appeared normal without effusion. I had seen him initially on 08/18/2017. 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 Lauren for radiation. He completed treatment on 11/26/2017 to a total dose of 3000 cGy. Repeat EGD on 02/22/2018 showed a hyperplastic appearing sessile polyp in the gastric body measuring 2 x 2 mm. It was removed endoscopically. There was evidence of gastritis and duodenitis. Pathology on the polyp showed benign polypoid gastric mucosa. The other gastric biopsies showed benign uniform gastric mucosa. There was no evidence of malignancy. Helicobacter pylori stains at both biopsy sites were negative. He continued on observation/expectant management. Surveillance CT of the abdomen/pelvis on 02/15/2019 showed enlarging central mesenteric lymph nodes, largest measuring 3.0 x 1.7 cm. These had increased in size and number compared to the prior CT from October 2018. Lobulated cysts or cyst within the right lobe of the liver measuring 3.5 cm appeared stable. Cardiomegaly and moderately sized circumferential pericardial effusion also appeared stable. The prostate was noted to be markedly enlarged. Further evaluation with restaging PET/CT on 05/06/2019 showed a new FDG avid central mesenteric mass measuring 5.5 x 3.5 cm, SUV 7.6, consistent with new will lymphoma. Smaller adjacent mesenteric lymph nodes were also FDG positive and consistent with lymphoma. There were additional small FDG positive nodes noted in the right internal mammary, anterior mediastinal, and right pre-vascular territories. Stomach activity was noted to be physiologic. I had seen him for a follow-up visit on 05/22/2019. As he had definite PET/CT evidence of disease progression, he was recommended to undergo a course of chemotherapy with bendamustine/Rituxan. He had preferred to delay starting treatment for at least a month. However, at that time, it was noted that he was still moderately anemic with hemoglobin 9.7 g. The red cell indices were slightly macrocytic. B12 was normal at 748 pg/mL and the transferrin saturation was normal at 34%. With those findings he underwent bone marrow aspiration/biopsy on 06/08/2019. There were no diagnostic findings. The cellularity was relatively low at 10 to 20%, but with trilineage hematopoiesis and mild erythroid hyperplasia. There were no dysplastic changes noted. There was no evidence of involvement with lymphoma. There was abundant storage iron. The chromosome analysis was normal and the FISH panel for MDS was unrevealing. His other medical illnesses include hypertension, hyperlipidemia, type II diabetes, and benign prostatic hypertrophy. He was treated for tick fever in the past. He is a nonsmoker. INTERIM HISTORY: He returned to begin cycle 1 of bendamustine/rituximab on 06/29/2019. He tolerated the initial infusion of rituximab with no adverse effects. He is seen for a follow-up visit. He has been feeling good generally. At times he has noticed some decrease in his energy level, but he still has normal activity. ECOG score 0. He also felt a little queasy for a couple of days. His appetite has been good. He has no fever or night sweats. He has had no mouth sores. He has no shortness of breath, cough, or chest pain. He has no other GI or complaints. He has no significant joint or bone pain. He has had some numbness in his right index and middle fingers, but that is not new. He has no other focal neurologic symptoms. Medications: Acarbose 1 Tablet (of 100 mg) Oral t.i.d., Actos 1 Tablet (of 45 mg) Oral daily, Ferrous Sulfate 1 Tablet (of 325 (65 fe) mg) Oral daily, Insulin Glargine 15 Units Subcutaneous t.i.d., Lisinopril-Hydrochlorothiazide 1 Tablet (of 20-12.5 mg) Oral daily, Multi Vitamin/Minerals 1 Tablet Oral daily, NovoLIN 70/30 Subcutaneous t.i.d., Pantoprazole Sodium 1 Tablet (of 40 mg) Tablet, enteric coated Oral b.i.d., Simvastatin 1 Tablet (of 80 mg) Oral daily, Terazosin HCl 1 Capsule (of 2 mg) Oral b.i.d., Vitamin B-12 1 Tablet (of 1000 mcg) Oral daily Allergies: No Known Allergies. Review of Systems: Constitutional - His energy has decreased, and he is resting more than usual, but he is still able to do normal activities. His appetite is good and weight is stable. No fever, chills, hot flashes, or night sweats. ECOG score is 0, ENMT - No sinus congestion/drainage. No mouth sores. No sore throat or difficulty swallowing, Hematologic/Lymphatic - No abnormal bruising or bleeding, Respiratory - No shortness of breath. No cough. No pleuritic pain or hemoptysis, Cardiovascular - No angina pain. No palpitations, Gastrointestinal - He has had just very slight nausea. No heartburn or acid reflux. No diarrhea or constipation. No blood in the stool or black stools, Genitourinary (M) - No dysuria or hematuria. No urinary frequency. No urgency or incontinence, Musculoskeletal - No joint or bone pain, Integumentary - No skin complications, Neurologic - No headache or dizziness. He has loss of sensation and use of his right index and middle fingers, Psychiatric - No anxiety or depression. No insomnia. Vital Signs: Performed on Jul 27, 2019 10:22 Height - 67.00 in Weight - 161.2 lbs (HIGH) BSA - 1.84 sq.m BMI - 25.25 Temperature - 97.6 F (LOW) Pulse - 86 /min Respiration - 18 /min BP - 115/60 mm(hg) O2 Sat - 97 % Pain - 0 Physical Examination: Constitutional - He looks pretty good generally, Eyes - Sclerae nonicteric. Conjunctivae clear, ENMT - No lesions noted in the oral cavity, Hematologic/Lymphatic - No cervical, clavicular, or axillary adenopathy, Respiratory - Lungs are clear with good air movement bilaterally, Cardiovascular - Heart rhythm is regular. There is no murmur, gallop, or rub noted, Abdomen - Soft. Liver and spleen are not enlarged. There is no abdominal mass or ascites noted and there is no inguinal adenopathy, Extremities - No edema, Neurologic - No focal neurologic deficits noted. Lab/Imaging: Test performed on Jul 26, 2019 12:52 WBC 3.3 10 3/uL RBC 3.25 10 6/uL HGB 9.8 g/dL HCT 32.4 % MCV 99.7 fL MCH 30.2 pg MCHC 30.2 g/dL RDW 14.7 % Platelet Count 111 10 3/cmm MPV 12.0 fL Neutrophils 2.6 10 3/uL Lymphocytes 0.2 10 3/uL Monocytes 0.4 10 3/uL Eosinophils 0.1 10 3/uL Basophils 0.0 10 3/uL Neutrophil % 79.0 % Lymphocyte % 6.5 % Monocyte % 10.8 % Eosinophil % 3.1 % Basophils % 0.3 % Impression: 1. 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 2. He underwent treatment with radiation, completed on 11/26/2017 to a total dose of 3,000 cGy. He had a good response by followup EGD. 3. He had evidence of disease progression PET/CT in May 2019 with multiple sites of lymph node involvement. 4. He has persistent anemia of unclear etiology. His bone marrow aspiration/biopsy on 06/08/2019 showed no diagnostic findings. His other medical illnesses include: 5. Hypertension. 6. Hyperlipidemia. 7. Type II diabetes. 8. Benign prostatic hypertrophy. He began cycle 1 of bendamustine/rituximab on 06/29/2019. He he tolerated it well. Side effects limited to just mild fatigue and very mild nausea. He had no other adverse effect. His blood counts remain adequate. Plan: He will proceed with cycle 2 of bendamustine/rituximab. The dosages remain the same. Blood counts will be monitored weekly. He returns in 4 weeks. Signed By: Rich Patiño M.D. <<Signature on File>>
[2019-08-03 15:07] LABS: Basophils % 0.3 %; Eosinophils # 0.1 10^3/uL (0.0-0.8); Hematocrit 30.9 % (42.0-52.0); Hemoglobin 9.7 g/dL (11.7-16.6); Lymphocytes % 1.3 %; Mean Corpuscular HGB Conc 31.4 g/dL (30.0-36.0); Mean Corpuscular Hemoglobin 31.9 pg (28.0-34.0); Mean Corpuscular Volume 101.6 fL (80-94); Mean Platelet Volume 11.4 fL (7.4-10.4); Monocytes # 0.2 10^3/uL (0.2-0.9); Neutrophils # 2.6 10^3/uL (1.8-7.7); Neutrophils % 86.7 %; Nucleated Red Blood Cells % 0 %; Platelet Count 113 10^3/cmm (130-400); Red Blood Count 3.04 10^6/uL (4.1-5.3); Red Cell Distribution Width 15.3 % (12.1-15.1)
[2019-08-03 16:35] LABS: Alanine Aminotransferase 20 U/L (0-41); Albumin Level 4.2 g/dL (3.5-5.2); Alkaline Phosphatase 50 IU/L (40-130); Anion Gap 15.4 (5-19); Aspartate Amino Transferase 29 U/L (0-40); Blood Urea Nitrogen 38 mg/dL (8-23); Calcium 9.4 mg/dL (8.5-10.5); Carbon Dioxide 25 mmol/L (22-29); Chloride 106 mmol/L (98-107); Globulin 2.3 g/dL (1.3-4.6); Glucose 130 mg/dL (65-115); Lactate Dehydrogenase 258 U/L (135-225); Osmolality Calculated 293 mOsm/kg (285-295); Potassium 4.4 mmol/L (3.5-5.1); Sodium 142 mmol/L (136-145); Total Bilirubin 0.3 mg/dL (0.15-1.2); Total Protein 6.5 g/dL (6.6-8.7)
== END 2019-08-03 23:59 | disposition home or self-care (01) ==
LOC: ONCMED 12:20
PROVIDERS: Family Provider Emergency Medicine Emergency Medical Services; PCP Emergency Medicine Emergency Medical Services; Visit Provider Internal Medicine Medical Oncology
DX: Z51.12 Encounter for antineoplastic immunotherapy (principal); C88.4 Extranodal marginal zone B-cell lymphoma of mucosa-associated lymphoid tissue [MALT-lymphoma]; I10 Essential (primary) hypertension; E78.5 Hyperlipidemia, unspecified; E11.9 Type 2 diabetes mellitus without complications; N40.0 Benign prostatic hyperplasia without lower urinary tract symptoms
CPT/HCPCS: 36415; 80053; 83615; 85025; 96367; 96368; 96375; 96413; 96415; 96417; 99214; J1200; J2405; J2469; J7040; J9034; J9312

== ENCOUNTER → 2019-08-23 11:47 | Outpatient (BNVA) | payer OTHER, SELFPAY | PROVIDERS: PCP Emergency Medicine Emergency Medical Services; Visit Provider Internal Medicine Medical Oncology | DX: C85.88 Other specified types of non-Hodgkin lymphoma, lymph nodes of multiple sites (principal); C88.4 Extranodal marginal zone B-cell lymphoma of mucosa-associated lymphoid tissue [MALT-lymphoma] | CPT/HCPCS: 85025 ==

== ENCOUNTER 2019-08-25 06:47 | Outpatient (RCR) | payer OTHER, SELFPAY ==
[2019-08-09 17:33] LABS: Eosinophils # 0.1 10^3/uL (0.0-0.8); Eosinophils % 5.3 %; Hematocrit 29.9 % (42.0-52.0); Hemoglobin 9.4 g/dL (11.7-16.6); Lymphocytes # 0.1 10^3/uL (0.8-4.8); Lymphocytes % 3.7 %; Mean Corpuscular HGB Conc 31.4 g/dL (30.0-36.0); Mean Corpuscular Hemoglobin 32.1 pg (28.0-34.0); Mean Platelet Volume 11.4 fL (7.4-10.4); Monocytes # 0.4 10^3/uL (0.2-0.9); Monocytes % 17.2 %; Neutrophils # 1.8 10^3/uL (1.8-7.7); Neutrophils % 73.4 %; Nucleated Red Blood Cells % 0 %; Platelet Count 143 10^3/cmm (130-400); Red Blood Count 2.93 10^6/uL (4.1-5.3); Red Cell Distribution Width 15.4 % (12.1-15.1); White Blood Count 2.4 10^3/uL (4.0-10.0)
[2019-08-24] MEDS: acetaminophen 325 mg Tablet 650 MG PO (11:40)
[2019-08-24] MEDS: sodium chloride 0.9% 500 ML 30 ML IV (11:45)
[2019-08-25] MEDS: sodium chloride 0.9% (100 ml) 100 ML 75 ML (09:32)
[2019-08-25] MEDS: palonosetron 0.25 mg/5 mL SDV IV (09:35)
--- NOTE | 2019-08-27 19:46 | ONC FU_ITS ---
Dr. Patiño Patient Follow-Up Note Patient: Earle Curiel Unit #: [id number]: [id number] Dicatated By: Rich Patiño M.D.Date of Visit:August 24, 2019 Onc Med Follow-up/Prog Note Chief Complaint: Lymphoma. 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 On 07/26/2017 he was admitted to the hospital after nearly passing out at home. He had been having melena, and his stool FIT was positive. He had to be transfused 3 units of PRBC. He underwent EGD and colonoscopy on 07/28/2017. The colonoscopy was unremarkable except for a few small diverticuli in the distal sigmoid colon. The EGD showed a pedunculated, hyperplastic appearing gastric polyp measuring 3 x 3 mm. It was completely excised endoscopically. Also noted was a single cratered chronic malignant appearing gastric ulcers ranging in size from 4 to 6 mm. 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 The lymphoid cells were CD20 and BCL-2 positive. CD3, CD5, and CD10 staining was noted in scattered lymphoid cells. Cyclin D1 was negative. The Ki-67 proliferation index was estimated 10-15%. Helicobacter pylori was not identified in either biopsy on Diff Quik stain. His CT abdomen/pelvis on 07/26/2017 showed a moderate amount of pericardial fluid. There were very small bilateral pleural effusions. There was possibly some thickening of the lower esophagus. Small calcifications are seen throughout the pancreas suggestive of prior episodes of pancreatitis. There were a few borderline prominent mesenteric lymph nodes with very subtle increased attenuation in the surrounding mesenteric fat, appearance of which was felt to be nonspecific. There was no retroperitoneal adenopathy. Prostate was noted to be enlarged. Echocardiogram showed normal left ventricular function with ejection fraction estimated at 60%. There was grade 1 diastolic dysfunction. The pericardium appeared normal without effusion. I had seen him initially on 08/18/2017. 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 Lauren for radiation. He completed treatment on 11/26/2017 to a total dose of 3000 cGy. Repeat EGD on 02/22/2018 showed a hyperplastic appearing sessile polyp in the gastric body measuring 2 x 2 mm. It was removed endoscopically. There was evidence of gastritis and duodenitis. Pathology on the polyp showed benign polypoid gastric mucosa. The other gastric biopsies showed benign uniform gastric mucosa. There was no evidence of malignancy. Helicobacter pylori stains at both biopsy sites were negative. He continued on observation/expectant management. Surveillance CT of the abdomen/pelvis on 02/15/2019 showed enlarging central mesenteric lymph nodes, largest measuring 3.0 x 1.7 cm. These had increased in size and number compared to the prior CT from October 2018. Lobulated cysts or cyst within the right lobe of the liver measuring 3.5 cm appeared stable. Cardiomegaly and moderately sized circumferential pericardial effusion also appeared stable. The prostate was noted to be markedly enlarged. Further evaluation with restaging PET/CT on 05/06/2019 showed a new FDG avid central mesenteric mass measuring 5.5 x 3.5 cm, SUV 7.6, consistent with new will lymphoma. Smaller adjacent mesenteric lymph nodes were also FDG positive and consistent with lymphoma. There were additional small FDG positive nodes noted in the right internal mammary, anterior mediastinal, and right pre-vascular territories. Stomach activity was noted to be physiologic. I had seen him for a follow-up visit on 05/22/2019. As he had definite PET/CT evidence of disease progression, he was recommended to undergo a course of chemotherapy with bendamustine/Rituxan. He had preferred to delay starting treatment for at least a month. However, at that time, it was noted that he was still moderately anemic with hemoglobin 9.7 g. The red cell indices were slightly macrocytic. B12 was normal at 748 pg/mL and the transferrin saturation was normal at 34%. With those findings he underwent bone marrow aspiration/biopsy on 06/08/2019. There were no diagnostic findings. The cellularity was relatively low at 10 to 20%, but with trilineage hematopoiesis and mild erythroid hyperplasia. There were no dysplastic changes noted. There was no evidence of involvement with lymphoma. There was abundant storage iron. The chromosome analysis was normal and the FISH panel for MDS was unrevealing. His other medical illnesses include hypertension, hyperlipidemia, type II diabetes, and benign prostatic hypertrophy. He was treated for tick fever in the past. He is a nonsmoker. INTERIM HISTORY: He returned to begin cycle 1 of bendamustine/rituximab on 06/29/2019. He tolerated the initial infusion of rituximab with no adverse effects. During subsequent follow-up there was some decline in his white blood cell count, but it remained adequate, as did the hemoglobin/hematocrit levels. He continued with cycle 2 of bendamustine/rituximab on 07/27/2019. He is seen for a follow-up visit. He has been feeling pretty good generally, though he has been a little more tired and he has been having to rest more. His ECOG score is 1. He has good appetite. He has no fever or night sweats. He has had no mouth sores. He has no shortness of breath, cough, or chest pain. He has had a little bit of nausea and he has had some bloating a few times. He has no other GI or complaints. He has no significant joint or bone pain. He has no focal neurologic symptoms. Medications: Acarbose 1 Tablet (of 100 mg) Oral t.i.d., Actos 1 Tablet (of 45 mg) Oral daily, Insulin Glargine 16 Units Subcutaneous at bedtime, Lisinopril-Hydrochlorothiazide 1 Tablet (of 20-12.5 mg) Oral daily, Multi Vitamin/Minerals 1 Tablet Oral daily, NovoLIN 70/30 Subcutaneous t.i.d., Pantoprazole Sodium 1 Tablet (of 40 mg) Tablet, enteric coated Oral b.i.d., Simvastatin 1 Tablet (of 80 mg) Oral daily, Terazosin HCl 1 Capsule (of 2 mg) Oral b.i.d., Vitamin B-12 1 Tablet (of 1000 mcg) Oral daily, Vitamin D3 Capsule Oral daily Allergies: No Known Allergies. Review of Systems: Constitutional - He has been feeling a little more tired, and he has been having to rest more. He still doing all of his normal activities. His appetite is good. He has no fever or night sweats. ECOG score is 1, ENMT - He has had a little bit of sinus drainage. No mouth sores. No sore throat or difficulty swallowing, Hematologic/Lymphatic - No abnormal bruising or bleeding, Respiratory - No shortness of breath. No cough. No pleuritic pain or hemoptysis, Cardiovascular - No angina pain. No palpitations, Gastrointestinal - He has had a little bit of nausea. He has felt bloated a few times. No heartburn or acid reflux. No diarrhea or constipation. No blood in the stool or black stools, Genitourinary (M) - No dysuria or hematuria. No urinary frequency. No urgency or incontinence, Musculoskeletal - No joint or bone pain, Integumentary - No skin complications, Neurologic - No headache or dizziness. No numbness/paresthesias or other focal neurologic symptoms, Psychiatric - No anxiety or depression. No insomnia. Vital Signs: Performed on August 24, 2019 10:28 Height - 67.00 in Weight - 161.2 lbs BSA - 1.84 sq.m BMI - 25.25 Temperature - 97.8 F (LOW) Pulse - 81 /min Respiration - 24 /min BP - 117/56 mm(hg) O2 Sat - 99 % Pain - 0 Physical Examination: Constitutional - He looks pretty good generally, Eyes - Sclerae nonicteric. Conjunctivae clear, ENMT - No lesions noted in the oral cavity, Hematologic/Lymphatic - No cervical, clavicular, or axillary adenopathy, Respiratory - Lungs are clear with good air movement bilaterally, Cardiovascular - Heart rhythm is regular. There is no murmur, gallop, or rub noted, Abdomen - Soft. Liver and spleen are not enlarged. There is no abdominal mass or ascites noted and there is no inguinal adenopathy, Extremities - No edema, Neurologic - No focal neurologic deficits noted. Lab/Imaging: Test performed on August 23, 2019 11:47 WBC 3 10^9/L RBC 2.93 10^12/L HGB 9.2 g/dL HCT 29.7 % MCV 101.1 fl MCH 31.4 pg MCHC 31 g/dL RDW 15.3 % Platelet Count 113 10^9/L MPV 11.7 fL Neutrophils (Gran) 2 10^9/L Lymphocytes 0.177 10^9/L Monocytes 0.423 10^9/L Eosinophils 0.384 10^9/L Basophils 0.009 10^9/L Impression: 1. 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 2. He underwent treatment with radiation, completed on 11/26/2017 to a total dose of 3,000 cGy. He had a good response by followup EGD. 3. He had evidence of disease progression PET/CT in May 2019 with multiple sites of lymph node involvement. 4. He has persistent anemia of unclear etiology. His bone marrow aspiration/biopsy on 06/08/2019 showed no diagnostic findings. His other medical illnesses include: 5. Hypertension. 6. Hyperlipidemia. 7. Type II diabetes. 8. Benign prostatic hypertrophy. He began cycle 1 of bendamustine/rituximab on 06/29/2019. He had mild neutropenia with it. His hemoglobin/hematocrit levels remained adequate. He continued with cycle 2 on 07/27/2019. At this point he continues to have moderately severe neutropenia and anemia. He has just mild fatigue. Overall, he has been tolerating the treatment well. He has not been evaluated for response. Plan: He will proceed with cycle 3 of bendamustine/rituximab. The dosages remain the same. Blood counts will be monitored weekly. He will be scheduled for a followup visit in 4 weeks. He will have restaging CT abdomen/pelvis prior to that visit. Signed By: Rich Patiño M.D. <<Signature on File>>
== END 2019-09-03 23:59 | disposition home or self-care (01) ==
LOC: ONCMED 06:47
PROVIDERS: PCP Emergency Medicine Emergency Medical Services; Visit Provider Internal Medicine Medical Oncology
DX: Z51.12 Encounter for antineoplastic immunotherapy (principal); Z51.11 Encounter for antineoplastic chemotherapy; C85.88 Other specified types of non-Hodgkin lymphoma, lymph nodes of multiple sites; N40.0 Benign prostatic hyperplasia without lower urinary tract symptoms; E78.5 Hyperlipidemia, unspecified; I10 Essential (primary) hypertension; E11.9 Type 2 diabetes mellitus without complications; Z86.19 Personal history of other infectious and parasitic diseases
CPT/HCPCS: 85025; 96367; 96368; 96375; 96413; 96415; 96417; 99214; J1200; J2405; J2469; J7040; J9034; J9312

== ENCOUNTER → 2019-08-31 09:45 | Outpatient (BNVA) | payer OTHER, SELFPAY | PROVIDERS: PCP Emergency Medicine Emergency Medical Services; Visit Provider Internal Medicine Medical Oncology | DX: C85.88 Other specified types of non-Hodgkin lymphoma, lymph nodes of multiple sites (principal); C88.4 Extranodal marginal zone B-cell lymphoma of mucosa-associated lymphoid tissue [MALT-lymphoma] | CPT/HCPCS: 80053; 83615; 85025 ==

== ENCOUNTER → 2019-09-06 09:36 | Outpatient (BNVA) | payer OTHER, SELFPAY | PROVIDERS: PCP Emergency Medicine Emergency Medical Services; Visit Provider Internal Medicine Medical Oncology | DX: C85.88 Other specified types of non-Hodgkin lymphoma, lymph nodes of multiple sites (principal); C88.4 Extranodal marginal zone B-cell lymphoma of mucosa-associated lymphoid tissue [MALT-lymphoma] | CPT/HCPCS: 80053; 85025 ==

== ENCOUNTER → 2019-09-13 09:44 | Outpatient (BNVA) | payer OTHER, SELFPAY | PROVIDERS: PCP Emergency Medicine Emergency Medical Services; Visit Provider Internal Medicine Medical Oncology | DX: C85.88 Other specified types of non-Hodgkin lymphoma, lymph nodes of multiple sites (principal); C88.4 Extranodal marginal zone B-cell lymphoma of mucosa-associated lymphoid tissue [MALT-lymphoma] | CPT/HCPCS: 85025 ==

== ENCOUNTER 2019-09-21 06:42 | Outpatient (RCR) | payer OTHER, SELFPAY ==
--- NOTE | 2019-09-19 11:40 | CT_ITS ---
WS: [id number] CT CHEST, ABDOMEN, AND PELVIS TECHNIQUE: Contrast-enhanced CT of the chest, abdomen, and pelvis with coronal and sagittal reformatt ed images. CLINICAL INFORMATION: LYMPHOMA COMPARISON: CT abdomen pelvis February 15, 2019, PET/CT to April 24, 2019, CT abdomen pelvis October 042018, June 20, 2018, DLP: 1116.[address] scans at [facility] use at least one of these dose optimization techniques: automat ed exposure control; mA and/or kV adjustment per patient size (includes targeted exams where dose is matched to clinical indication); or iterative reconstruction. CT CHEST: Prior PET/CT demonstrated small FDG avid lymph nodes in the right internal mammary chain and anterior mediastinum. Small FDG avid lymph nodes appear unchanged. No progressive adenopathy. Moderate chroni c emphysematous changes. Moderate pericardial effusion. 3.4 mm noncalcified pulmonary nodule right up per lobe. Small bilateral pleural effusions. No acute pulmonary infiltrates. Slight atelectasis in the lung bases. No suspicious pulmonary parench ymal opacities. Normal thyroid. Coronary calcification. CT ABDOMEN AND PELVIS: Previously described FDG avid central mesenteric mass previously measured 5.5 x 3.5 CM. This has sign ificantly improved and essentially resolved with a small residual mesenteric implant or lymph node me asuring 1.3 x 2.5 cm best seen on the coronal imaging. A few shoddy lymph nodes along the mesenteric root. Otherwise no significant mesenteric lymphadenopathy. Findings are consistent with interval resp onse to therapy. Stable right hepatic cyst measuring 3.5 CM. Small esophageal hiatal hernia. Normal spleen. Pancreatic fatty atrophy. Adrenal glands are normal. Bilateral renal cortical atrophy. No hydronephrosis. Bilat eral renal cysts. Peripelvic cysts. Prominent extra renal pelvises bilaterally. Markedly enlarged heterogenous enhancing prostate with nodularity. This measures approximately 6.0 x 5.0 cm suspicious for neoplasia. Enlarged seminal vesicles bilaterally. Small fat-containing umbilical hernia. Enlarged seminal vesicles bilaterally are unchanged. No inguin al lymphadenopathy. 3 mm L3 retrolisthesis on L4. CT/CT chest abd pel w con* IMPRESSION: 1. Stable small FDG avid mediastinal and internal mammary lymph nodes. No prog ressed lymphadenopathy in the chest. 2. Previously described mesenteric mass has essentially resolved with a small residual soft tissue implant measuring 1.3 x 2.5 cm best seen on the coronal im aging. A few shotty mesenteric lymph nodes along the mesenteric root. Findings are consistent with interval response to therapy. 3. Markedly enlarged prostate gland with nodularity suspicious for neoplasia. Enlarged seminal vesicles.Correlation PSA. 4. Bilateral renal cortical atrophy with small renal cysts. 5. Stable 3.5 cm lobulated lesion right hepatic lobe likely hepatic cyst. 6. Moderate pericardial effusion is unchanged. 7. Tiny subpleural nodule right upper lobe measuring 3.4 mm. Recommend 6 month follow-up. 8. Small esophageal hiatal hernia.
[2019-09-19 12:07] LABS: Basophils % 0.4 %; Eosinophils % 1.6 %; Hematocrit 26.4 % (42.0-52.0); Hemoglobin 8.2 g/dL (11.7-16.6); Lymphocytes # 0.2 10^3/uL (0.8-4.8); Lymphocytes % 7.6 %; Mean Corpuscular HGB Conc 31.1 g/dL (30.0-36.0); Mean Corpuscular Hemoglobin 31.5 pg (28.0-34.0); Mean Corpuscular Volume 101.5 fL (80-94); Mean Platelet Volume 10.8 fL (7.4-10.4); Monocytes # 0.3 10^3/uL (0.2-0.9); Monocytes % 12.8 %; Neutrophils # 1.9 10^3/uL (1.8-7.7); Nucleated Red Blood Cells % 0 %; Platelet Count 109 10^3/cmm (130-400); Red Cell Distribution Width 15.8 % (12.1-15.1); White Blood Count 2.5 10^3/uL (4.0-10.0)
[2019-09-19 12:26] LABS: Alanine Aminotransferase 17 U/L (0-41); Albumin Level 3.4 g/dL (3.5-5.2); Alkaline Phosphatase 48 IU/L (40-130); Anion Gap 15.5 (5-19); Aspartate Amino Transferase 23 U/L (0-40); Blood Urea Nitrogen 31 mg/dL (8-23); Calcium 8.5 mg/dL (8.5-10.5); Carbon Dioxide 25 mmol/L (22-29); Chloride 106 mmol/L (98-107); Globulin 2.2 g/dL (1.3-4.6); Glucose 232 mg/dL (65-115); Lactate Dehydrogenase 229 U/L (135-225); Osmolality Calculated 301 mOsm/kg (285-295); Potassium 3.5 mmol/L (3.5-5.1); Sodium 143 mmol/L (136-145); Total Bilirubin 0.2 mg/dL (0.15-1.2); Total Protein 5.6 g/dL (6.6-8.7)
[2019-09-19] MEDS: iodixanol 320 mg/mL 100mL Btl IV (12:58)
--- NOTE | 2019-09-25 06:46 | ONC FU_ITS ---
Dr. Patiño Patient Follow-Up Note Patient: Earle Curiel Unit #: [id number]: 1935 Dicatated By: Rich Patiño M.D.Date of Visit:Sep 21, 2019 Onc Med Follow-up/Prog Note Chief Complaint: Lymphoma. 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 On 07/26/2017 he was admitted to the hospital after nearly passing out at home. He had been having melena, and his stool FIT was positive. He had to be transfused 3 units of PRBC. He underwent EGD and colonoscopy on 07/28/2017. The colonoscopy was unremarkable except for a few small diverticuli in the distal sigmoid colon. The EGD showed a pedunculated, hyperplastic appearing gastric polyp measuring 3 x 3 mm. It was completely excised endoscopically. Also noted was a single cratered chronic malignant appearing gastric ulcers ranging in size from 4 to 6 mm. 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 The lymphoid cells were CD20 and BCL-2 positive. CD3, CD5, and CD10 staining was noted in scattered lymphoid cells. Cyclin D1 was negative. The Ki-67 proliferation index was estimated 10-15%. Helicobacter pylori was not identified in either biopsy on Diff Quik stain. His CT abdomen/pelvis on 07/26/2017 showed a moderate amount of pericardial fluid. There were very small bilateral pleural effusions. There was possibly some thickening of the lower esophagus. Small calcifications are seen throughout the pancreas suggestive of prior episodes of pancreatitis. There were a few borderline prominent mesenteric lymph nodes with very subtle increased attenuation in the surrounding mesenteric fat, appearance of which was felt to be nonspecific. There was no retroperitoneal adenopathy. Prostate was noted to be enlarged. Echocardiogram showed normal left ventricular function with ejection fraction estimated at 60%. There was grade 1 diastolic dysfunction. The pericardium appeared normal without effusion. I had seen him initially on 08/18/2017. 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 Lauren for radiation. He completed treatment on 11/26/2017 to a total dose of 3000 cGy. Repeat EGD on 02/22/2018 showed a hyperplastic appearing sessile polyp in the gastric body measuring 2 x 2 mm. It was removed endoscopically. There was evidence of gastritis and duodenitis. Pathology on the polyp showed benign polypoid gastric mucosa. The other gastric biopsies showed benign uniform gastric mucosa. There was no evidence of malignancy. Helicobacter pylori stains at both biopsy sites were negative. He continued on observation/expectant management. Surveillance CT of the abdomen/pelvis on 02/15/2019 showed enlarging central mesenteric lymph nodes, largest measuring 3.0 x 1.7 cm. These had increased in size and number compared to the prior CT from October 2018. Lobulated cysts or cyst within the right lobe of the liver measuring 3.5 cm appeared stable. Cardiomegaly and moderately sized circumferential pericardial effusion also appeared stable. The prostate was noted to be markedly enlarged. Further evaluation with restaging PET/CT on 05/06/2019 showed a new FDG avid central mesenteric mass measuring 5.5 x 3.5 cm, SUV 7.6, consistent with new will lymphoma. Smaller adjacent mesenteric lymph nodes were also FDG positive and consistent with lymphoma. There were additional small FDG positive nodes noted in the right internal mammary, anterior mediastinal, and right pre-vascular territories. Stomach activity was noted to be physiologic. I had seen him for a follow-up visit on 05/22/2019. As he had definite PET/CT evidence of disease progression, he was recommended to undergo a course of chemotherapy with bendamustine/Rituxan. He had preferred to delay starting treatment for at least a month. However, at that time, it was noted that he was still moderately anemic with hemoglobin 9.7 g. The red cell indices were slightly macrocytic. B12 was normal at 748 pg/mL and the transferrin saturation was normal at 34%. With those findings he underwent bone marrow aspiration/biopsy on 06/08/2019. There were no diagnostic findings. The cellularity was relatively low at 10 to 20%, but with trilineage hematopoiesis and mild erythroid hyperplasia. There were no dysplastic changes noted. There was no evidence of involvement with lymphoma. There was abundant storage iron. The chromosome analysis was normal and the FISH panel for MDS was unrevealing. His other medical illnesses include hypertension, hyperlipidemia, type II diabetes, and benign prostatic hypertrophy. He was treated for tick fever in the past. He is a nonsmoker. INTERIM HISTORY: He returned to begin cycle 1 of bendamustine/rituximab on 06/29/2019. He tolerated the initial infusion of rituximab with no adverse effects. During subsequent follow-up there was some decline in his white blood cell count, but it remained adequate, as did the hemoglobin/hematocrit levels. He continued with cycle 2 of bendamustine/rituximab on 07/27/2019 and with cycle 3 on 08/24/2019. Restaging CT scan of the chest, abdomen, and pelvis on 09/19/2019 showed almost complete resolution of the mesenteric mass measuring 1.3 x 2.5 cm. There were otherwise just a few shotty mesenteric lymph nodes along the mesenteric root small. Mediastinal and internal mammary lymph nodes appeared stable. The prostate was noted to be markedly enlarged with nodularity suspicious for neoplasia. A stable lobulated lesion in the right hepatic lobe measuring 3.5 cm appeared to be likely an hepatic cyst. A moderate pericardial effusion was unchanged. A tiny subpleural nodule measuring 3.5 mm was noted in the right upper lobe and follow-up was recommended. He is seen for a follow-up visit. He has been feeling awful weak since his last treatment. He is still doing light work at home. His ECOG score is 1. His appetite is not is good. He had a heavy chill and sweating the night before last, he thinks he had a little fever. He has not had sore mouth or throat. He has no shortness of breath, cough, or chest pain. He has been having some nausea. He was having diarrhea, which is better now, though he still has some loose stools. He has urinary frequency with nocturia 3 or 4 times, but that is chronic. He complains that his feet and legs bother him at night, mainly with tingling and some pain. He has no other joint or bone pain. Medications: Acarbose 1 Tablet (of 100 mg) Oral t.i.d., Actos 1 Tablet (of 45 mg) Oral daily, Insulin Glargine 16 Units Subcutaneous at bedtime, Lisinopril-Hydrochlorothiazide 1 Tablet (of 20-12.5 mg) Oral daily, Multi Vitamin/Minerals 1 Tablet Oral daily, NovoLIN 70/30 Subcutaneous t.i.d., Pantoprazole Sodium 1 Tablet (of 40 mg) Tablet, enteric coated Oral b.i.d., Simvastatin 1 Tablet (of 80 mg) Oral daily, Terazosin HCl 1 Capsule (of 2 mg) Oral b.i.d., Vitamin B-12 1 Tablet (of 1000 mcg) Oral daily, Vitamin D3 Capsule Oral daily Allergies: No Known Allergies. Review of Systems: Constitutional - He is feeling weaker and his energy is lower than previous. He continues to care for his daughter full-time and he does light housework. His appetite has decreased some but his weight is stable. He thinks he has been running a low grade fever. He has had chills, and he has been having some sweating at night at least once or twice a week. ECOG score is 1, ENMT - He has sinus drainage. No mouth sores. No sore throat or difficulty swallowing, Hematologic/Lymphatic - No abnormal bruising or bleeding, Respiratory - No shortness of breath. No cough. No pleuritic pain or hemoptysis, Cardiovascular - No angina pain. No palpitations, Gastrointestinal - He has had nausea. No vomiting. No heartburn or acid reflux. He was having diarrhea, and his stools now are still loose. No constipation. No blood in the stool or black stools, Genitourinary (M) - No dysuria or hematuria. He is having urinary frequency both day and night. No urgency or incontinence, Musculoskeletal - He is having pain in his legs and feet, Integumentary - No skin complications, Neurologic - No headache or dizziness. He is having pain in his right foot described as tingling, this is worse while walking and at night. No other focal neurologic symptoms, Psychiatric - No anxiety or depression. No insomnia. Vital Signs: Performed on Sep 21, 2019 10:39 Height - 67.00 in Weight - 160.6 lbs (LOW) BSA - 1.84 sq.m BMI - 25.15 Temperature - 99.3 F (HIGH) Pulse - 88 /min Respiration - 20 /min BP - 129/63 mm(hg) O2 Sat - 98 % Pain - 0 Physical Examination: Constitutional - He appears somewhat weak generally, Eyes - Sclerae nonicteric. Conjunctivae clear, ENMT - No lesions noted in the oral cavity, Hematologic/Lymphatic - No cervical, clavicular, or axillary adenopathy, Respiratory - Lungs are clear with good air movement bilaterally, Cardiovascular - Heart rhythm is regular. There is no murmur, gallop, or rub noted, Abdomen - Soft. Liver and spleen are not enlarged. There is no abdominal mass or ascites noted and there is no inguinal adenopathy, Extremities - No edema, Neurologic - No focal neurologic deficits noted. Lab/Imaging: CBC shows hemoglobin 8.2 g, white blood cell count 2500, and platelet count 109,000. Comprehensive metabolic profile is unremarkable. LDH is slightly elevated at 229/225 U/L. Impression: 1. 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 2. He underwent treatment with radiation, completed on 11/26/2017 to a total dose of 3,000 cGy. He had a good response by followup EGD. 3. He had evidence of disease progression PET/CT in May 2019 with multiple sites of lymph node involvement. 4. He has persistent anemia of unclear etiology. His bone marrow aspiration/biopsy on 06/08/2019 showed no diagnostic findings. His other medical illnesses include: 5. Hypertension. 6. Hyperlipidemia. 7. Type II diabetes. 8. Benign prostatic hypertrophy. He began cycle 1 of bendamustine/rituximab on 06/29/2019. He had mild neutropenia with it. His hemoglobin/hematocrit levels remained adequate. He continued with cycle 2 on 07/27/2019 and with cycle 3 on 08/24/2019. During treatment he has had moderately severe neutropenia and anemia. He has had a significant decline in performance status following his 3rd cycle, but his restaging CT scans did show almost complete resolution of the mesenteric mass. He was noted to have a moderate pericardial effusion, but that was present on his earlier studies and it it did not appear to be significant by echocardiogram. The other significant finding was a markedly enlarged prostate with nodularity, felt to be suspicious for neoplasia. Plan: Given the decline in his blood counts and in his performance status, I am going to stop the chemotherapy now, as he has had a very good response by CT scan. Per NCCN, there appears to be no indication for maintenance rituximab following chemotherapy. As such, he will be monitored on observation/expectant management. He will be scheduled for a follow-up visit in 1 month and I will include a PSA level with his lab studies. Signed By: Rich Patiño M.D. <<Signature on File>>
== END 2019-10-03 23:59 | disposition home or self-care (01) ==
LOC: ONCMED 06:42
PROVIDERS: PCP Emergency Medicine Emergency Medical Services; Visit Provider Internal Medicine Medical Oncology
DX: C88.4 Extranodal marginal zone B-cell lymphoma of mucosa-associated lymphoid tissue [MALT-lymphoma] (principal); I10 Essential (primary) hypertension; E78.5 Hyperlipidemia, unspecified; E11.9 Type 2 diabetes mellitus without complications; N40.0 Benign prostatic hyperplasia without lower urinary tract symptoms
CPT/HCPCS: 36415; 71260; 74177; 80053; 83615; 85025; 99214

== ENCOUNTER → 2019-10-19 10:07 | Outpatient (BNVA) | payer OTHER, SELFPAY | PROVIDERS: PCP Emergency Medicine Emergency Medical Services; Visit Provider Internal Medicine Medical Oncology | DX: C85.88 Other specified types of non-Hodgkin lymphoma, lymph nodes of multiple sites (principal); C88.4 Extranodal marginal zone B-cell lymphoma of mucosa-associated lymphoid tissue [MALT-lymphoma]; E11.8 Type 2 diabetes mellitus with unspecified complications; R53.83 Other fatigue; N40.0 Benign prostatic hyperplasia without lower urinary tract symptoms | CPT/HCPCS: 80053; 83036; 83615; 84153; 84443; 85025 ==

== ENCOUNTER 2019-10-23 06:45 | Outpatient (RCR) | payer OTHER, SELFPAY ==
--- NOTE | 2019-10-17 10:15 | USCV_ITS ---
Earle Curiel Age: 84 Gender: M : 1935 Exam Date: 10/17/2019 11:19 Ordering Phys: Rcih Patiño MD Technologist: Whit Thomas Exam Location: [facility] [place] Indication: BP: / HR: 76 Rhythm: Sinus Technical Quality: Adequate MEASUREMENTS (Male / Female) Normal Values 2D ECHO LV Diastolic Diameter PLAX 4.2 cm 4.2 - 5.9 / 3.9 - 5.3 cm LV Systolic Diameter PLAX 2.6 cm IVS Diastolic Thickness 1.3 cm 0.6 - 1.0 / 0.6 - 0.9 cm IVS Systolic Thickness 1.7 cm LVPW Diastolic Thickness 1.2 cm 0.6 - 1.0 / 0.6 - 0.9 cm LVPW Systolic Thickness 2.3 cm LV Ejection Fraction 2D Teich 69.3 % LV Ejection Fraction MOD 2C 77.9 % LV Ejection Fraction 2C AL 76.6 % LA Diameter 5.1 cm LA Width 2.3 cm LA Height 4.5 cm RA Width 3.1 cm RA Height 5.2 cm M-MODE LV Diastolic Diameter MM 5.1 cm 4.2 - 5.9 / 3.9 - 5.3 cm LV Systolic Diameter MM 2.8 cm LV Ejection Fraction MM Teich 75.5 % IVS Diastolic Thickness MM 1.1 cm 0.6 - 1.0 / 0.6 - 0.9 cm IVS Systolic Thickness MM 1.5 cm LVPW Diastolic Thickness MM 0.9 cm 0.6 - 1.0 / 0.6 - 0.9 cm LVPW Systolic Thickness MM 1.9 cm Aortic Annulus Diameter 3.1 cm LA Ao Ratio MM 1.6 MV E Point Septal Separation 0.4 cm DOPPLER AV Peak Velocity 132.0 cm/s LVOT Peak Velocity 129.0 cm/s MV Peak Velocity 99.0 cm/s MV Area PHT 3.4 cm squared Mitral E to A Ratio 0.7 MV E' Velocity 8.0 cm/s Mitral E to MV E' Ratio 9.0 Mitral E to LV E' Lateral Ratio 7.7 Mitral E to LV E' Septal Ratio 11.1 TR Peak Velocity 65.0 cm/s TR Peak Gradient 1.7 mmHg Right Atrial Pressure 3.0 mmHg Pulmonary Artery Systolic Pressu 4.7 mmHg PV Peak Velocity 82.0 cm/s RV Acceleration Time 0.1 s FINDINGS Left Ventricle Normal left ventricular size, systolic function and wall thickness, with no regional wall motion abnormalities. Left ventricular ejection fraction is estimated at 70 %. Normal diastolic function. Right Ventricle Normal right ventricular size and systolic function, RVSP 4.7 mmHg. Right Atrium Normal right atrial size. Right atrial pressure estimated at 3 mmHg. Left Atrium Normal left atrial size. Mitral Valve Mildly thickened mitral valve. No mitral valve stenosis. Trace mitral valve regurgitation. Aortic Valve Mildly thickened and calcified trileaflet aortic valve. No aortic valve stenosis. No aortic valve regurgitation. Tricuspid Valve Structurally normal tricuspid valve. No tricuspid valve stenosis. Mild tricuspid valve regurgitation. Pulmonic Valve Structurally normal pulmonic valve. No pulmonary valve stenosis. Trace pulmonary valve regurgitation. Pericardium Small circumferential pericardial effusion. No evidence of hemodynamic compromise. Aorta Normal size aortic root and proximal ascending aorta. CONCLUSIONS 1. Normal left ventricular size, systolic function and wall thickness, with no regional wall motion abnormalities. Left ventricular ejection fraction is estimated at 70 %. Normal diastolic function. 2. Normal right ventricular size and systolic function. 3. Mild tricuspid valve regurgitation. 4. Small circumferential pericardial effusion. No evidence of hemodynamic compromise. 5. When compared to previous echocardiogram dated 07/26/2017, there is small circumferential pericardial effusion now. Elizabeth Davenport MD (Electronically Signed) Final Date: 18 October 2019 17:17 S
--- NOTE | 2019-10-23 19:30 | ONC FU_ITS ---
Dr. Patiño Patient Follow-Up Note Patient: Earle Curiel Unit #: [id number]: 1935 Dicatated By: Rich Patiño M.D.Date of Visit:Oct 23, 2019 Onc Med Follow-up/Prog Note Chief Complaint: Lymphoma. 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 On 07/26/2017 he was admitted to the hospital after nearly passing out at home. He had been having melena, and his stool FIT was positive. He had to be transfused 3 units of PRBC. He underwent EGD and colonoscopy on 07/28/2017. The colonoscopy was unremarkable except for a few small diverticuli in the distal sigmoid colon. The EGD showed a pedunculated, hyperplastic appearing gastric polyp measuring 3 x 3 mm. It was completely excised endoscopically. Also noted was a single cratered chronic malignant appearing gastric ulcers ranging in size from 4 to 6 mm. 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 The lymphoid cells were CD20 and BCL-2 positive. CD3, CD5, and CD10 staining was noted in scattered lymphoid cells. Cyclin D1 was negative. The Ki-67 proliferation index was estimated 10-15%. Helicobacter pylori was not identified in either biopsy on Diff Quik stain. His CT abdomen/pelvis on 07/26/2017 showed a moderate amount of pericardial fluid. There were very small bilateral pleural effusions. There was possibly some thickening of the lower esophagus. Small calcifications are seen throughout the pancreas suggestive of prior episodes of pancreatitis. There were a few borderline prominent mesenteric lymph nodes with very subtle increased attenuation in the surrounding mesenteric fat, appearance of which was felt to be nonspecific. There was no retroperitoneal adenopathy. Prostate was noted to be enlarged. Echocardiogram showed normal left ventricular function with ejection fraction estimated at 60%. There was grade 1 diastolic dysfunction. The pericardium appeared normal without effusion. I had seen him initially on 08/18/2017. 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 Lauren for radiation. He completed treatment on 11/26/2017 to a total dose of 3000 cGy. Repeat EGD on 02/22/2018 showed a hyperplastic appearing sessile polyp in the gastric body measuring 2 x 2 mm. It was removed endoscopically. There was evidence of gastritis and duodenitis. Pathology on the polyp showed benign polypoid gastric mucosa. The other gastric biopsies showed benign uniform gastric mucosa. There was no evidence of malignancy. Helicobacter pylori stains at both biopsy sites were negative. He continued on observation/expectant management. Surveillance CT of the abdomen/pelvis on 02/15/2019 showed enlarging central mesenteric lymph nodes, largest measuring 3.0 x 1.7 cm. These had increased in size and number compared to the prior CT from October 2018. Lobulated cysts or cyst within the right lobe of the liver measuring 3.5 cm appeared stable. Cardiomegaly and moderately sized circumferential pericardial effusion also appeared stable. The prostate was noted to be markedly enlarged. Further evaluation with restaging PET/CT on 05/06/2019 showed a new FDG avid central mesenteric mass measuring 5.5 x 3.5 cm, SUV 7.6, consistent with new will lymphoma. Smaller adjacent mesenteric lymph nodes were also FDG positive and consistent with lymphoma. There were additional small FDG positive nodes noted in the right internal mammary, anterior mediastinal, and right pre-vascular territories. Stomach activity was noted to be physiologic. I had seen him for a follow-up visit on 05/22/2019. As he had definite PET/CT evidence of disease progression, he was recommended to undergo a course of chemotherapy with bendamustine/Rituxan. He had preferred to delay starting treatment for at least a month. However, at that time, it was noted that he was still moderately anemic with hemoglobin 9.7 g. The red cell indices were slightly macrocytic. B12 was normal at 748 pg/mL and the transferrin saturation was normal at 34%. With those findings he underwent bone marrow aspiration/biopsy on 06/08/2019. There were no diagnostic findings. The cellularity was relatively low at 10 to 20%, but with trilineage hematopoiesis and mild erythroid hyperplasia. There were no dysplastic changes noted. There was no evidence of involvement with lymphoma. There was abundant storage iron. The chromosome analysis was normal and the FISH panel for MDS was unrevealing. He returned to begin cycle 1 of bendamustine/rituximab on 06/29/2019. He tolerated the initial infusion of rituximab with no adverse effects. During subsequent follow-up there was some decline in his white blood cell count, but it remained adequate, as did the hemoglobin/hematocrit levels. He continued with cycle 2 of bendamustine/rituximab on 07/27/2019 and with cycle 3 on 08/24/2019. Restaging CT scan of the chest, abdomen, and pelvis on 09/19/2019 showed almost complete resolution of the mesenteric mass measuring 1.3 x 2.5 cm. There were otherwise just a few shotty mesenteric lymph nodes along the mesenteric root small. Mediastinal and internal mammary lymph nodes appeared stable. The prostate was noted to be markedly enlarged with nodularity suspicious for neoplasia. A stable lobulated lesion in the right hepatic lobe measuring 3.5 cm appeared to be likely an hepatic cyst. A moderate pericardial effusion was unchanged. A tiny subpleural nodule measuring 3.5 mm was noted in the right upper lobe and follow-up was recommended. With those findings, and with the decline in his blood counts and performance status, I opted not to attempt any further chemotherapy. His other medical illnesses include hypertension, hyperlipidemia, type II diabetes, and benign prostatic hypertrophy. He was treated for tick fever in the past. He is a nonsmoker. INTERIM HISTORY: He is seen for a follow-up visit. He has been feeling pretty good generally. He does complain that the heat gets to them, so that he does have somewhat limited activity. His ECOG score is 1. He has good appetite. He has no fever or night sweats. He has no shortness of breath, cough, or chest pain. He has no GI/ complaints other than his bowels tend to be a little loose. He does not have diarrhea, though. He has no significant joint or bone pain. He has some numbness in the right hand, which is chronic. He has no other focal neurologic symptoms. Medications: Acarbose 1 Tablet (of 100 mg) Oral t.i.d., Actos 1 Tablet (of 45 mg) Oral daily, Insulin Glargine 16 Units Subcutaneous at bedtime, Lisinopril-Hydrochlorothiazide 1 Tablet (of 20-12.5 mg) Oral daily, Multi Vitamin/Minerals 1 Tablet Oral daily, NovoLIN 70/30 Subcutaneous t.i.d., Pantoprazole Sodium 1 Tablet (of 40 mg) Tablet, enteric coated Oral b.i.d., Simvastatin 1 Tablet (of 80 mg) Oral daily, Terazosin HCl 1 Capsule (of 2 mg) Oral b.i.d., Vitamin B-12 1 Tablet (of 1000 mcg) Oral daily, Vitamin D3 Capsule Oral daily Allergies: No Known Allergies. Review of Systems: Constitutional - He is feeling pretty good, though he does complain that the heat gets to him, and he does have somewhat limited activity. Appetite is good and weight is stable. No fever, night sweats, or hot flashes. ECOG score is 1, ENMT - He has sinus drainage. No mouth sores. No sore throat or difficulty swallowing, Hematologic/Lymphatic - No abnormal bruising or bleeding, Respiratory - No shortness of breath. No cough. No pleuritic pain or hemoptysis, Cardiovascular - No angina pain. No palpitations, Gastrointestinal - No nausea or vomiting. No heartburn or acid reflux. His bowels are a little loose, but he does not have diarrhea. No blood in the stool or black stools, Genitourinary (M) - No dysuria or hematuria. No urinary frequency. No urgency or incontinence, Musculoskeletal - No joint or bone pain, Integumentary - , Neurologic - No headache or dizziness. He has numbness in his right hand. No other focal neurologic symptoms, Psychiatric - No anxiety or depression. No insomnia. Vital Signs: Performed on Oct 23, 2019 12:48 Height - 67.00 in Weight - 158.6 lbs (LOW) BSA - 1.83 sq.m BMI - 24.84 Temperature - 98.2 F (LOW) Pulse - 78 /min Respiration - 18 /min BP - 110/50 mm(hg) O2 Sat - 100 % Pain - 0 Physical Examination: Constitutional - He looks pretty good generally, Eyes - Sclerae nonicteric. Conjunctivae clear, ENMT - No lesions noted in the oral cavity, Hematologic/Lymphatic - No cervical, clavicular, or axillary adenopathy, Respiratory - Lungs are clear with good air movement bilaterally, Cardiovascular - Heart rhythm is regular. There is a II/ systolic murmur. There is no gallop or rub noted, Abdomen - Soft. Liver and spleen are not enlarged. There is no abdominal mass or ascites noted and there is no inguinal adenopathy, Extremities - No edema, Neurologic - No focal neurologic deficits noted. Lab/Imaging: CBC shows hemoglobin 8.2 g, white blood cell count 3500, and platelet count 131,000. Comprehensive metabolic profile shows elevated BUN 40 and creatinine 1.4 mg/dL. Liver enzymes are normal. The LDH is mildly elevated at 307/225 U/L. TSH is borderline at 4.34 ???IU/mL. PSA is slightly elevated at 5.050 ng/mL. Impression: 1. 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 2. He underwent treatment with radiation, completed on 11/26/2017 to a total dose of 3,000 cGy. He had a good response by followup EGD. 3. He had evidence of disease progression PET/CT in May 2019 with multiple sites of lymph node involvement. 4. He has persistent anemia of unclear etiology. His bone marrow aspiration/biopsy on 06/08/2019 showed no diagnostic findings. His other medical illnesses include: 5. Hypertension. 6. Hyperlipidemia. 7. Type II diabetes. 8. Benign prostatic hypertrophy. He began cycle 1 of bendamustine/rituximab on 06/29/2019. He had mild neutropenia with it. His hemoglobin/hematocrit levels remained adequate. He continued with cycle 2 on 07/27/2019 and with cycle 3 on 08/24/2019. During treatment he has had moderately severe neutropenia and anemia. He has had a significant decline in performance status following his 3rd cycle, but his restaging CT scans did show almost complete resolution of the mesenteric mass. He was noted to have a moderate pericardial effusion, but that was present on his earlier studies and it it did not appear to be significant by echocardiogram. The other significant finding was a markedly enlarged prostate with nodularity, felt to be suspicious for neoplasia. With those findings, and with his showing decline in his blood counts and performance status, I opted not to attempt any further chemotherapy. He is now being followed on observation/expectant management. He does appear to be showing some improvement in his clinical status. He remains moderately anemic. Plan: He remains on observation/expectant management. I will see him again in 3 months. Signed By: Rich Patiño M.D. <<Signature on File>>
== END 2019-11-03 23:59 | disposition home or self-care (01) ==
LOC: ONCMED 06:45
PROVIDERS: PCP Emergency Medicine Emergency Medical Services; Visit Provider Internal Medicine Medical Oncology
DX: C88.4 Extranodal marginal zone B-cell lymphoma of mucosa-associated lymphoid tissue [MALT-lymphoma] (principal); I31.3 Pericardial effusion (noninflammatory); I10 Essential (primary) hypertension; N40.0 Benign prostatic hyperplasia without lower urinary tract symptoms; E78.5 Hyperlipidemia, unspecified; E11.9 Type 2 diabetes mellitus without complications; Z79.899 Other long term (current) drug therapy; Z79.4 Long term (current) use of insulin; Z92.25 Personal history of immunosuppression therapy; Z92.21 Personal history of antineoplastic chemotherapy
CPT/HCPCS: 93306; G0463

== ENCOUNTER → 2020-01-18 11:06 | Outpatient (BNVA) | payer OTHER, SELFPAY | PROVIDERS: PCP Emergency Medicine Emergency Medical Services; Visit Provider Internal Medicine Medical Oncology | DX: C85.88 Other specified types of non-Hodgkin lymphoma, lymph nodes of multiple sites (principal); C88.4 Extranodal marginal zone B-cell lymphoma of mucosa-associated lymphoid tissue [MALT-lymphoma] | CPT/HCPCS: 80053; 83615; 85025 ==

== ENCOUNTER → 2020-02-01 10:44 | Outpatient (BNVA) | payer OTHER, SELFPAY | PROVIDERS: PCP Emergency Medicine Emergency Medical Services; Visit Provider Internal Medicine Medical Oncology | DX: D64.9 Anemia, unspecified (principal) | CPT/HCPCS: 85025 ==

== ENCOUNTER → 2020-02-08 11:19 | Outpatient (BNVA) | payer OTHER, SELFPAY | PROVIDERS: PCP Emergency Medicine Emergency Medical Services; Visit Provider Internal Medicine Medical Oncology | DX: C85.88 Other specified types of non-Hodgkin lymphoma, lymph nodes of multiple sites (principal); C88.4 Extranodal marginal zone B-cell lymphoma of mucosa-associated lymphoid tissue [MALT-lymphoma]; N40.1 Benign prostatic hyperplasia with lower urinary tract symptoms | CPT/HCPCS: 80053; 83615; 85025 ==

== ENCOUNTER 2020-02-12 11:41 | Outpatient (CLI) | payer OTHER, SELFPAY ==
[2020-02-12] MEDS: pneumococcal (23 valent) SDV 0.5 mL IM (12:30)
--- NOTE | 2020-02-13 07:34 | ONC FU_ITS ---
Dr. Patiño Patient Follow-Up Note Patient: Earle Curiel Unit #: [id number]: [id number] Dicatated By: Rich Patiño M.D.Date of Visit:Feb 12, 2020 Onc Med Follow-up/Prog Note Chief Complaint: Lymphoma. 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 On 07/26/2017 he was admitted to the hospital after nearly passing out at home. He had been having melena, and his stool FIT was positive. He had to be transfused 3 units of PRBC. He underwent EGD and colonoscopy on 07/28/2017. The colonoscopy was unremarkable except for a few small diverticuli in the distal sigmoid colon. The EGD showed a pedunculated, hyperplastic appearing gastric polyp measuring 3 x 3 mm. It was completely excised endoscopically. Also noted was a single cratered chronic malignant appearing gastric ulcers ranging in size from 4 to 6 mm. 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 The lymphoid cells were CD20 and BCL-2 positive. CD3, CD5, and CD10 staining was noted in scattered lymphoid cells. Cyclin D1 was negative. The Ki-67 proliferation index was estimated 10-15%. Helicobacter pylori was not identified in either biopsy on Diff Quik stain. His CT abdomen/pelvis on 07/26/2017 showed a moderate amount of pericardial fluid. There were very small bilateral pleural effusions. There was possibly some thickening of the lower esophagus. Small calcifications are seen throughout the pancreas suggestive of prior episodes of pancreatitis. There were a few borderline prominent mesenteric lymph nodes with very subtle increased attenuation in the surrounding mesenteric fat, appearance of which was felt to be nonspecific. There was no retroperitoneal adenopathy. Prostate was noted to be enlarged. Echocardiogram showed normal left ventricular function with ejection fraction estimated at 60%. There was grade 1 diastolic dysfunction. The pericardium appeared normal without effusion. I had seen him initially on 08/18/2017. 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 Lauren for radiation. He completed treatment on 11/26/2017 to a total dose of 3000 cGy. Repeat EGD on 02/22/2018 showed a hyperplastic appearing sessile polyp in the gastric body measuring 2 x 2 mm. It was removed endoscopically. There was evidence of gastritis and duodenitis. Pathology on the polyp showed benign polypoid gastric mucosa. The other gastric biopsies showed benign uniform gastric mucosa. There was no evidence of malignancy. Helicobacter pylori stains at both biopsy sites were negative. He continued on observation/expectant management. Surveillance CT of the abdomen/pelvis on 02/15/2019 showed enlarging central mesenteric lymph nodes, largest measuring 3.0 x 1.7 cm. These had increased in size and number compared to the prior CT from October 2018. Lobulated cysts or cyst within the right lobe of the liver measuring 3.5 cm appeared stable. Cardiomegaly and moderately sized circumferential pericardial effusion also appeared stable. The prostate was noted to be markedly enlarged. Further evaluation with restaging PET/CT on 05/06/2019 showed a new FDG avid central mesenteric mass measuring 5.5 x 3.5 cm, SUV 7.6, consistent with new will lymphoma. Smaller adjacent mesenteric lymph nodes were also FDG positive and consistent with lymphoma. There were additional small FDG positive nodes noted in the right internal mammary, anterior mediastinal, and right pre-vascular territories. Stomach activity was noted to be physiologic. I had seen him for a follow-up visit on 05/22/2019. As he had definite PET/CT evidence of disease progression, he was recommended to undergo a course of chemotherapy with bendamustine/Rituxan. He had preferred to delay starting treatment for at least a month. However, at that time, it was noted that he was still moderately anemic with hemoglobin 9.7 g. The red cell indices were slightly macrocytic. B12 was normal at 748 pg/mL and the transferrin saturation was normal at 34%. With those findings he underwent bone marrow aspiration/biopsy on 06/08/2019. There were no diagnostic findings. The cellularity was relatively low at 10 to 20%, but with trilineage hematopoiesis and mild erythroid hyperplasia. There were no dysplastic changes noted. There was no evidence of involvement with lymphoma. There was abundant storage iron. The chromosome analysis was normal and the FISH panel for MDS was unrevealing. He returned to begin cycle 1 of bendamustine/rituximab on 06/29/2019. He tolerated the initial infusion of rituximab with no adverse effects. During subsequent follow-up there was some decline in his white blood cell count, but it remained adequate, as did the hemoglobin/hematocrit levels. He continued with cycle 2 of bendamustine/rituximab on 07/27/2019 and with cycle 3 on 08/24/2019. Restaging CT scan of the chest, abdomen, and pelvis on 09/19/2019 showed almost complete resolution of the mesenteric mass measuring 1.3 x 2.5 cm. There were otherwise just a few shotty mesenteric lymph nodes along the mesenteric root small. Mediastinal and internal mammary lymph nodes appeared stable. The prostate was noted to be markedly enlarged with nodularity suspicious for neoplasia. A stable lobulated lesion in the right hepatic lobe measuring 3.5 cm appeared to be likely an hepatic cyst. A moderate pericardial effusion was unchanged. A tiny subpleural nodule measuring 3.5 mm was noted in the right upper lobe and follow-up was recommended. With those findings, and with the decline in his blood counts and performance status, I opted not to attempt any further chemotherapy. His other medical illnesses include hypertension, hyperlipidemia, type II diabetes, and benign prostatic hypertrophy. He was treated for tick fever in the past. He is a nonsmoker. INTERIM HISTORY: He has been feeling pretty good, though he does complain that he tires out by afternoon. His ECOG score is 1. He has good appetite. He does not have fever or night sweats. He does complain that he tends to get cold during the middle of the night. He has no shortness of breath, cough, or chest pain. He has no GI complaints other than his stools are occasionally runny. He continues to complain that his bladder does not empty completely. He is following with Dr. Wilkins. He has no significant joint or bone pain. He does report having some numbness in his right hand. He has no other focal neurologic symptoms. Medications: Acarbose 1 Tablet (of 100 mg) Oral t.i.d., Actos 1 Tablet (of 45 mg) Oral daily, Insulin Glargine 16 Units Subcutaneous at bedtime, Lisinopril-Hydrochlorothiazide 1 Tablet (of 20-12.5 mg) Oral daily, Multi Vitamin/Minerals 1 Tablet Oral daily, NovoLIN 70/30 Subcutaneous t.i.d., Pantoprazole Sodium 1 Tablet (of 40 mg) Tablet, enteric coated Oral b.i.d., Simvastatin 1 Tablet (of 80 mg) Oral daily, Terazosin HCl 1 Capsule (of 2 mg) Oral b.i.d., Vitamin B-12 1 Tablet (of 1000 mcg) Oral daily, Vitamin D3 Capsule Oral daily Allergies: No Known Allergies. Review of Systems: Constitutional - He has been feeling pretty good, though he is tired out by afternoon. Appetite is good and weight is stable. No fever or night sweats. He has been getting cold in the middle of the night. ECOG score is 1, ENMT - No sinus congestion/drainage. No mouth sores. No sore throat or difficulty swallowing, Hematologic/Lymphatic - No abnormal bruising or bleeding, Respiratory - No shortness of breath. No cough. No pleuritic pain or hemoptysis, Cardiovascular - No angina pain. No palpitations, Gastrointestinal - No nausea or vomiting. No heartburn or acid reflux. His bowels are occasionally runny. No blood in the stool or black stools, Genitourinary (M) - No dysuria or hematuria. No urinary frequency. No urgency or incontinence. He complains that his bladder doesn't empty completely, Musculoskeletal - No joint or bone pain, Integumentary - , Neurologic - No headache or dizziness. He has numbness in his right hand. No other focal neurologic symptoms, Psychiatric - No anxiety or depression. No insomnia. Vital Signs: Performed on Feb 12, 2020 11:59 Height - 67.00 in Weight - 156.2 lbs (LOW) BSA - 1.82 sq.m BMI - 24.46 Temperature - 98.0 F (LOW) Pulse - 93 /min Respiration - 18 /min BP - 124/80 mm(hg) O2 Sat - 99 % Pain - 0 Physical Examination: Constitutional - He looks pretty good generally, Eyes - Sclerae nonicteric. Conjunctivae clear, ENMT - No lesions noted in the oral cavity, Hematologic/Lymphatic - No cervical, clavicular, or axillary adenopathy, Respiratory - Lungs are clear with good air movement bilaterally, Cardiovascular - Heart rhythm is regular. There is a II/ systolic murmur. There is no gallop or rub noted, Abdomen - Soft. Liver and spleen are not enlarged. There is no abdominal mass or ascites noted and there is no inguinal adenopathy, Extremities - No edema, Neurologic - No focal neurologic deficits noted. Lab/Imaging: Test performed on Feb 08, 2020 13:44 WBC 3.2 10^9/L RBC 2.41 10^12/L HGB 8.2 g/dL HCT 25.2 % MCV 105.8 fl MCH 34.3 pg MCHC 32.4 g/dL RDW 18.6 % Platelet Count 171 10^9/L Lymphocytes 0.2624 10^9/L Monocytes 0.1824 10^9/L Impression: 1. 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 2. He underwent treatment with radiation, completed on 11/26/2017 to a total dose of 3,000 cGy. He had a good response by followup EGD. 3. He had evidence of disease progression PET/CT in May 2019 with multiple sites of lymph node involvement. 4. He has persistent anemia of unclear etiology. His bone marrow aspiration/biopsy on 06/08/2019 showed no diagnostic findings. His other medical illnesses include: 5. Hypertension. 6. Hyperlipidemia. 7. Type II diabetes. 8. Benign prostatic hypertrophy. He began cycle 1 of bendamustine/rituximab on 06/29/2019. He had mild neutropenia with it. His hemoglobin/hematocrit levels remained adequate. He continued with cycle 2 on 07/27/2019 and with cycle 3 on 08/24/2019. During treatment he has had moderately severe neutropenia and anemia. He has had a significant decline in performance status following his 3rd cycle, but his restaging CT scans did show almost complete resolution of the mesenteric mass. He was noted to have a moderate pericardial effusion, but that was present on his earlier studies and it it did not appear to be significant by echocardiogram. The other significant finding was a markedly enlarged prostate with nodularity, felt to be suspicious for neoplasia. With those findings, and with his showing decline in his blood counts and performance status, I opted not to attempt any further chemotherapy. During follow-up he has continued to have moderately severe anemia. A specific cause for that has not been determined. He does have some fatigue, but his overall clinical status remains stable, thus far with no obvious progression of the lymphoma. Plan: He remains on observation/expectant management. Due to the further decline in his hemoglobin/hematocrit levels, I am going to see him back in 1 month. In the meantime, he will be given a flu shot and Pneumovax. Signed By: Rich Patiño M.D. <<Signature on File>>
== END 2020-02-12 11:42 | disposition home or self-care (01) ==
PROVIDERS: PCP Emergency Medicine Emergency Medical Services; Visit Provider Internal Medicine Medical Oncology
DX: Z08 Encounter for follow-up examination after completed treatment for malignant neoplasm (principal); Z85.72 Personal history of non-Hodgkin lymphomas; D64.9 Anemia, unspecified; I10 Essential (primary) hypertension; E78.5 Hyperlipidemia, unspecified; E11.9 Type 2 diabetes mellitus without complications; N40.0 Benign prostatic hyperplasia without lower urinary tract symptoms; Z92.21 Personal history of antineoplastic chemotherapy; Z92.3 Personal history of irradiation; Z79.899 Other long term (current) drug therapy; Z23 Encounter for immunization
CPT/HCPCS: 90471; 90686; 90732; 99214

== ENCOUNTER → 2020-03-15 10:06 | Outpatient (BNVA) | payer MEDICARE, SELFPAY | PROVIDERS: PCP Emergency Medicine Emergency Medical Services; Visit Provider Internal Medicine Medical Oncology | DX: C85.88 Other specified types of non-Hodgkin lymphoma, lymph nodes of multiple sites (principal); C88.4 Extranodal marginal zone B-cell lymphoma of mucosa-associated lymphoid tissue [MALT-lymphoma] | CPT/HCPCS: 80053; 82668; 83010; 83615; 85025; 85045; 85651 ==

== ENCOUNTER → 2020-10-11 11:07 | Outpatient (BNVA) | payer MEDICARE, SELFPAY | PROVIDERS: PCP Emergency Medicine Emergency Medical Services; Visit Provider Internal Medicine Medical Oncology | DX: C85.88 Other specified types of non-Hodgkin lymphoma, lymph nodes of multiple sites (principal); C88.4 Extranodal marginal zone B-cell lymphoma of mucosa-associated lymphoid tissue [MALT-lymphoma] | CPT/HCPCS: 80053; 82668; 83010; 83615; 85025; 85045; 85651 ==

== ENCOUNTER 2020-10-15 13:52 | Outpatient (CLI) | payer OTHER, MEDICARE, SELFPAY ==
--- NOTE | 2020-10-19 12:54 | ONC FU_ITS ---
Dr. Patiño Patient Follow-Up Note Patient: Earle Curiel Unit #: [id number]: [id number] Dicatated By: Rich Patiño M.D.Date of Visit:Oct 15, 2020 Onc Med Follow-up/Prog Note Chief Complaint: Lymphoma/anemia. 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 He also has moderately severe anemia. On 07/26/2017 he was admitted to the hospital after nearly passing out at home. He had been having melena, and his stool FIT was positive. He had to be transfused 3 units of PRBC. He underwent EGD and colonoscopy on 07/28/2017. The colonoscopy was unremarkable except for a few small diverticuli in the distal sigmoid colon. The EGD showed a pedunculated, hyperplastic appearing gastric polyp measuring 3 x 3 mm. It was completely excised endoscopically. Also noted was a single cratered chronic malignant appearing gastric ulcers ranging in size from 4 to 6 mm. 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 The lymphoid cells were CD20 and BCL-2 positive. CD3, CD5, and CD10 staining was noted in scattered lymphoid cells. Cyclin D1 was negative. The Ki-67 proliferation index was estimated 10-15%. Helicobacter pylori was not identified in either biopsy on Diff Quik stain. His CT abdomen/pelvis on 07/26/2017 showed a moderate amount of pericardial fluid. There were very small bilateral pleural effusions. There was possibly some thickening of the lower esophagus. Small calcifications are seen throughout the pancreas suggestive of prior episodes of pancreatitis. There were a few borderline prominent mesenteric lymph nodes with very subtle increased attenuation in the surrounding mesenteric fat, appearance of which was felt to be nonspecific. There was no retroperitoneal adenopathy. Prostate was noted to be enlarged. Echocardiogram showed normal left ventricular function with ejection fraction estimated at 60%. There was grade 1 diastolic dysfunction. The pericardium appeared normal without effusion. I had seen him initially on 08/18/2017. 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 Lauren for radiation. He completed treatment on 11/26/2017 to a total dose of 3000 cGy. Repeat EGD on 02/22/2018 showed a hyperplastic appearing sessile polyp in the gastric body measuring 2 x 2 mm. It was removed endoscopically. There was evidence of gastritis and duodenitis. Pathology on the polyp showed benign polypoid gastric mucosa. The other gastric biopsies showed benign uniform gastric mucosa. There was no evidence of malignancy. Helicobacter pylori stains at both biopsy sites were negative. He continued on observation/expectant management. Surveillance CT of the abdomen/pelvis on 02/15/2019 showed enlarging central mesenteric lymph nodes, largest measuring 3.0 x 1.7 cm. These had increased in size and number compared to the prior CT from October 2018. Lobulated cysts or cyst within the right lobe of the liver measuring 3.5 cm appeared stable. Cardiomegaly and moderately sized circumferential pericardial effusion also appeared stable. The prostate was noted to be markedly enlarged. Further evaluation with restaging PET/CT on 05/06/2019 showed a new FDG avid central mesenteric mass measuring 5.5 x 3.5 cm, SUV 7.6, consistent with new will lymphoma. Smaller adjacent mesenteric lymph nodes were also FDG positive and consistent with lymphoma. There were additional small FDG positive nodes noted in the right internal mammary, anterior mediastinal, and right pre-vascular territories. Stomach activity was noted to be physiologic. I had seen him for a follow-up visit on 05/22/2019. As he had definite PET/CT evidence of disease progression, he was recommended to undergo a course of chemotherapy with bendamustine/Rituxan. He had preferred to delay starting treatment for at least a month. However, at that time, it was noted that he was still moderately anemic with hemoglobin 9.7 g. The red cell indices were slightly macrocytic. B12 was normal at 748 pg/mL and the transferrin saturation was normal at 34%. With those findings he underwent bone marrow aspiration/biopsy on 06/08/2019. There were no diagnostic findings. The cellularity was relatively low at 10 to 20%, but with trilineage hematopoiesis and mild erythroid hyperplasia. There were no dysplastic changes noted. There was no evidence of involvement with lymphoma. There was abundant storage iron. The chromosome analysis was normal and the FISH panel for MDS was unrevealing. He returned to begin cycle 1 of bendamustine/rituximab on 06/29/2019. He tolerated the initial infusion of rituximab with no adverse effects. During subsequent follow-up there was some decline in his white blood cell count, but it remained adequate, as did the hemoglobin/hematocrit levels. He continued with cycle 2 of bendamustine/rituximab on 07/27/2019 and with cycle 3 on 08/24/2019. Restaging CT scan of the chest, abdomen, and pelvis on 09/19/2019 showed almost complete resolution of the mesenteric mass measuring 1.3 x 2.5 cm. There were otherwise just a few shotty mesenteric lymph nodes along the mesenteric root small. Mediastinal and internal mammary lymph nodes appeared stable. The prostate was noted to be markedly enlarged with nodularity suspicious for neoplasia. A stable lobulated lesion in the right hepatic lobe measuring 3.5 cm appeared to be likely an hepatic cyst. A moderate pericardial effusion was unchanged. A tiny subpleural nodule measuring 3.5 mm was noted in the right upper lobe and follow-up was recommended. With those findings, and with the decline in his blood counts and performance status, I opted not to attempt any further chemotherapy. His other medical illnesses include hypertension, hyperlipidemia, type II diabetes, and benign prostatic hypertrophy. He was treated for tick fever in the past. He is a nonsmoker. INTERIM HISTORY: As of his follow-up visit on 02/12/2020 he continued to have moderately severe anemia but his clinical status appeared stable with no obvious progression of the lymphoma. He continued on expectant management. He is seen for a follow-up visit. He does have some fatigue, as he tends to tire out pretty easily. He is able to do light work. ECOG score is 1. He has good appetite. He has no fever or night sweats. He has having difficulty managing his diabetes, as his blood sugars tend to either be real high or low. He has some sinus drainage. He does not complain of shortness of breath, cough, or chest pain. He still has diarrhea every few days or so. He has no other GI or complaints. He has no significant joint or bone pain. He does not complain of headache or dizziness. He has no focal neurologic symptoms. Medications: Acarbose 1 Tablet (of 100 mg) Oral t.i.d., Actos 1 Tablet (of 45 mg) Oral daily, Insulin Glargine 16 Units Subcutaneous at bedtime, Lisinopril-Hydrochlorothiazide 1 Tablet (of 20-12.5 mg) Oral daily, Multi Vitamin/Minerals 1 Tablet Oral daily, NovoLIN 70/30 Subcutaneous t.i.d., Pantoprazole Sodium 1 Tablet (of 40 mg) Tablet, enteric coated Oral b.i.d., Simvastatin 1 Tablet (of 80 mg) Oral daily, Terazosin HCl 1 Capsule (of 2 mg) Oral b.i.d., Vitamin B-12 1 Tablet (of 1000 mcg) Oral daily, Vitamin D3 Capsule Oral daily Allergies: No Known Allergies. Vital Signs: Performed on Oct 15, 2020 15:42 Height - 67.00 in Weight - 160.4 lbs (HIGH) BSA - 1.84 sq.m BMI - 25.12 Temperature - 97.4 F (LOW) Pulse - 85 /min Respiration - 18 /min BP - 114/57 mm(hg) O2 Sat - 98 % Pain - 0 Fatigue - 8 Physical Examination: Constitutional - He looks pretty good generally, Eyes - Sclerae nonicteric. Conjunctivae clear, ENMT - No lesions noted in the oral cavity, Hematologic/Lymphatic - No cervical, clavicular, or axillary adenopathy, Respiratory - Lungs are clear with good air movement bilaterally, Cardiovascular - Heart rhythm is regular. There is a II/ systolic murmur. There is no gallop or rub noted, Abdomen - Soft. Liver and spleen are not enlarged. There is no abdominal mass or ascites noted and there is no inguinal adenopathy, Extremities - No edema, Neurologic - No focal neurologic deficits noted. Lab/Imaging: CBC shows hemoglobin 8.5 g with hematocrit 27.3%. The red cell indices are macrocytic. White blood cell count is 3800. Platelet count is 147,000. Comprehensive metabolic profile shows elevated BUN and creatinine at 40 and 1.5 mg/dL. The nonfasting blood sugar is 278 mg/dL. LDH is mildly elevated at 283/225 U/L. Problem List: 1. 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 He appeared to have localized gastric marginal zone lymphoma at initial diagnosis in July 2017, and he underwent treatment with radiation, completed on 11/26/2017 to a total dose of 3,000 cGy. He had a good response by followup EGD. 2. He had evidence of disease progression PET/CT in May 2019 with multiple sites of lymph node involvement. 3. He has persistent anemia of unclear etiology. His bone marrow aspiration/biopsy on 06/08/2019 showed no diagnostic findings. 4. Hypertension. 5. Hyperlipidemia. 6. Type II diabetes. 7. Benign prostatic hypertrophy. Problems Addressed with this Encounter and Plan: 1. 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 He underwent treatment with radiation, completed on 11/26/2017 to a total dose of 3,000 cGy. He had a good response by followup EGD. However, he had evidence of disease progression with PET/CT in May 2019 showing multiple sites of lymph node involvement. From 06/29/2019 through 08/24/2019 he underwent treatment with 3 cycles of bendamustine/rituximab. The chemotherapy was complicated by moderately severe neutropenia and anemia, and he did have a significant decline in his performance status following the third cycle. However, he did have a very good response with restaging CT in September 2015 showing almost complete resolution of the mesenteric mass. With those findings, he then began expectant management. During follow-up he has continued to have some fatigue, but his clinical status otherwise remained stable. He will be scheduled now for restaging CT scans, as it has been over a year since his last studies. He will have further evaluation as indicated. In the absence of any evidence of disease progression, I will just see him again in 3 months. 2. He has persistent anemia of unclear etiology. His bone marrow aspiration/biopsy on 06/08/2019 showed no diagnostic findings. Thus far he remains moderately anemic, but he has not been overtly symptomatic with it. I will continue to monitor his blood counts. I also will check a serum copper level with his next lab draw. 3. He has been having diarrhea. This possibly could be medication related, I did suggest that he stop the acarbose, least on a temporary basis. If it does not resolve, I will have him try colestipol. In the meantime, I also will see if we can get [facility], as his diabetes has been difficult to manage. Signed By: Rich Patiño M.D. <<Signature on File>>
== END 2020-10-15 13:53 | disposition home or self-care (01) ==
LOC: ONCMED 13:57
PROVIDERS: PCP Emergency Medicine Emergency Medical Services; Visit Provider Internal Medicine Medical Oncology
DX: Z08 Encounter for follow-up examination after completed treatment for malignant neoplasm (principal); Z85.72 Personal history of non-Hodgkin lymphomas; D64.9 Anemia, unspecified; I10 Essential (primary) hypertension; E78.5 Hyperlipidemia, unspecified; E11.9 Type 2 diabetes mellitus without complications; N40.0 Benign prostatic hyperplasia without lower urinary tract symptoms; Z79.899 Other long term (current) drug therapy; Z92.21 Personal history of antineoplastic chemotherapy; Z92.3 Personal history of irradiation
CPT/HCPCS: 99214

== ENCOUNTER → 2020-10-16 13:33 | Outpatient (BNVA) | payer OTHER, MEDICARE, SELFPAY | PROVIDERS: PCP Emergency Medicine Emergency Medical Services; Visit Provider Urology | DX: N40.1 Benign prostatic hyperplasia with lower urinary tract symptoms (principal) | CPT/HCPCS: 81003 ==

== ENCOUNTER 2020-11-04 11:35 | Outpatient (CLI) | payer OTHER, MEDICARE, SELFPAY ==
--- NOTE | 2020-11-04 11:44 | CT_ITS ---
WS: [id number] CT scan of the chest Without IV contrast, CT scan of the abdomen and pelvis without IV contrast and with oral contrast. Additional two-dimensional coronal and sagittal reconstruction was performed. 11/04/2020 Clinical Data: LYMPHOMA Comparison: CT chest abdomen and pelvis, 09/19/2019. DLP: 1539.[address] scans at [facility] use at least one of these dose optimization techniques: automat ed exposure control; mA and/or kV adjustment per patient size (includes targeted exams where dose is matched to clinical indication); or iterative reconstruction. Findings: Chest: No masses are seen. There are minimal pleural effusions. The right middle lobe nodule on the peripher y seen best on image 32 of 64 on the axial images has not changed. The heart size is enlarged with a moderate pericardial effusion. There is coronary artery calcificati on. No pneumonia or pneumothorax is seen. The pulmonary arterial system and thoracic aorta demonstrat e no abnormalities or dilatations. There is no axillary or significant mediastinal adenopathy. The bony thorax shows no metastatic lesio ns. Abdomen/pelvis: The lower lungs show no nodules, masses or effusions. The gallbladder, spleen, adrenal glands and pancreas are normal. There is a cyst in the dome of the r ight lobe of the liver unchanged. The kidneys show no calculi, cysts, masses or hydronephrosis. The abdominal aorta is normal in size with calcification in the wall.. No appendicitis or diverticulitis is seen. Oral contrast is in the stomach and small bowel and there is no bowel dilatation. There is a small fat-containing umbilical hernia. There is a soft tissue dens ity in the central portion abdomen seen best on the coronal view, image 39 of 55 unchanged in size. N o abscess, adenopathy, ascites, mass, obstruction or free air is seen. The bladder wall is thickened. The prostate is enlarged.. No inguinal hernia is seen. The bones of the lower thorax, lumbar spine, pelvis, and hips show no metastatic lesions.. CT/CT chest abd pel wo con Impression: 1. No change in small mesenteric mass seen best on coronal imaging. 2. No metastatic lesions are seen. 3. No change in cardiomegaly and pericardial effusion. 4. No change in subpleural nodule in the right upper lobe and recommend no furt her imaging of this nodule.
[2020-11-04] MEDS: iohexol 300 mg/mL 50 mL Btl PO (11:57)
== END 2020-11-04 11:36 | disposition home or self-care (01) ==
PROVIDERS: PCP Emergency Medicine Emergency Medical Services; Visit Provider Internal Medicine Medical Oncology
DX: C85.88 Other specified types of non-Hodgkin lymphoma, lymph nodes of multiple sites (principal)
CPT/HCPCS: 71250; 74176; Q9967

== ENCOUNTER → 2021-01-08 13:07 | Outpatient (BNVA) | payer OTHER, MEDICARE, SELFPAY | PROVIDERS: PCP Emergency Medicine Emergency Medical Services; Referring Provider Internal Medicine Medical Oncology; Visit Provider Internal Medicine | DX: E11.22 Type 2 diabetes mellitus with diabetic chronic kidney disease (principal); E11.69 Type 2 diabetes mellitus with other specified complication; N18.30 Chronic kidney disease, stage 3 unspecified; E78.5 Hyperlipidemia, unspecified; Z79.4 Long term (current) use of insulin | CPT/HCPCS: 99205 ==

== ENCOUNTER → 2021-01-13 11:03 | Outpatient (BNVA) | payer MEDICARE, SELFPAY | PROVIDERS: PCP Emergency Medicine Emergency Medical Services; Visit Provider Internal Medicine Medical Oncology | DX: D64.9 Anemia, unspecified; C88.4 Extranodal marginal zone B-cell lymphoma of mucosa-associated lymphoid tissue [MALT-lymphoma]; E11.22 Type 2 diabetes mellitus with diabetic chronic kidney disease; N18.30 Chronic kidney disease, stage 3 unspecified; N40.1 Benign prostatic hyperplasia with lower urinary tract symptoms | CPT/HCPCS: 80053; 83036; 83615; 85025 ==

== ENCOUNTER 2021-03-27 12:13 | Emergency (ER) | payer OTHER, MEDICARE, SELFPAY ==
[2021-03-27 13:07] VITALS: BP 144/74; PULSE 73; RESP 16; TEMP 36.6; O2SAT 97
--- NOTE | 2021-03-27 13:10 | XRR_ITS ---
PROCEDURE INFORMATION: Exam: XR Right Foot Exam date and time: 03/27/2021 1:10 PM Age: 85 years old Clinical indication: Pain and injury or trauma; Other: Stepped wrong; Sprain or strain; Right; Patient HX: Has knot medial RT foot for a while. ; Additional info: Pain, injury TECHNIQUE: Imaging protocol: XR Right foot. Views: 3 or more views. COMPARISON: No relevant prior studies available. FINDINGS: Bones/joints: The examination shows generalized osteopenia and osteoarthritis. A. A pes planus deformity is seen with ventral displacement of the midfoot. Midfoot sclerotic changes and bone spurs are present. The 1st metatarsal and 2nd metatarsal show lateral angulation compared to the midfoot. These findings appear chronic. Soft tissues: Unremarkable XR/XR foot RT min 3V* [id number] IMPRESSION: 1. Negative for acute bony abnormality. 2. Pes planus as described. 3. Osteopenia and osteoarthritis. 4. Lateral angulation of the forefoot in relation to the midfoot
--- NOTE | 2021-03-27 14:01 | ED_ITS ---
HPI - Extremity Problem General: Chief complaint: Extremity Injury, Lower Stated complaint: Hurt R foot Time Seen by Provider: 03/27/21 13:10 History of Present Illness: HPI Narrative: Patient says when he stepped his foot down other day felt a pain in his foot and has bothered him since. Complaint: extremity pain Onset (ago): day(s) Pain Consistency: intermittent Location: right and lower extremity Severity scale (1-10): 1 Quality: aching Radiation: none Relieving factors: immobilization and rest Exacerbating factors: weight bearing Associated symptoms: Reports no associated symptoms; Deny chest pain, fever(s) or rash Review of Systems Const: Denies: fever(s), chills or body aches Eyes: Denies: change in vision or blurry vision ENMT: Denies: throat pain or nasal congestion Card: Denies: chest pain or dyspnea on exertion Resp: Denies: dyspnea, productive cough or non-productive cough GI: Denies: abdominal pain, nausea or vomiting : Denies: difficulty urinating Musc: Reports: extremity pain (Right foot pain with some bruising since stepping awkwardly a week ago) Skin/Breast: Denies: rash Neuro: Denies: headache(s) Psych: Denies: anxiety or depression Kane/Lymph: Denies: easy bruising PFSH ED PFSH: Medical History BPH loc w urin obs/LUTS 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] Other specified types of non-hodgkin lymphoma, lymph nodes of multiple sites Surgical History No pertinent past surgical history Family History Mother Diabetes Father Cancer Social History Alcohol intake: never Marital status: / Current occupational status: retired History of recent travel: No Physical Exam Const: COMMON NORMALS: no acute distress GENERAL APPEARANCE: cooperative Resp: COMMON NORMALS: normal respiratory effort Extremity: RIGHT LOWER EXTREMITY: Yes foot & digits (Tenderness along the second metatarsal to distal aspect with old bruising a) Right foot and digits: Yes neurovascular exam (Intact no erythema noted) Course Vital Signs: Vital signs: Vital Signs Temperature 97.9 F 03/27/21 13:07 Pulse Rate 73 03/27/21 13:07 Respiratory Rate 16 03/27/21 13:07 Blood Pressure 144/74 03/27/21 13:07 Pulse Oximetry 97 03/27/21 13:07 Discharge Plan Discharge Patient Disposition: Home Clinical Impression: Foot pain, right Metatarsal fracture Qualifiers: Encounter type: initial encounter Metatarsal bone: second Fracture type: closed Fracture alignment: nondisplaced Laterality: right Qualified Code(s): S92.324A - Nondisplaced fracture of second metatarsal bone, right foot, initial encounter for closed fracture Condition: Stable Prescriptions: New Voltaren Arthritis Pain 1 % gel 4 g topical QID Qty: 100 RF: 0 No Action Novolin R Flexpen 100 unit/mL (3 mL) insulin pen 3 unit SUBCUT TIDWMEAL RF: 0 multivitamin Tablet 1 tab PO DAILY RF: 0 pioglitazone 45 mg tablet 45 mg PO DAILY RF: 0 tamsulosin 0.4 mg capsule 0.4 mg PO BID Qty: 180 RF: 3 Lantus U-100 Insulin 100 unit/mL Solution 31 unit SUBCUT DAILY RF: 0 lisinopril-hydrochlorothiazide 20-12.5 mg Tablet 1 tab PO DAILY RF: 0 cyanocobalamin (vitamin B-12) [B-12 DOTS] 500 mcg Tablet 1,000 mcg PO DAILY RF: 0 pantoprazole [Protonix] 40 mg Tablet,Delayed Release (Dr/Ec) 40 mg PO DAILY RF: 0 simvastatin 40 mg tablet 80 mg PO DAILY RF: 0 Discharge Orders: Discharge ED (Routine); Ordered 03/27/21 Ordered By: Cricket Anderson Referrals: Baldev Issa, DO [Primary Care Provider] - Discharge Diet: Usual diet Discharge Activity: Limit activity as instructed Patient Instructions: Foot Fracture in Adults (ED) Activity Restrictions/Additional Instructions: It is possible you might have a fracture of the bone below your second toe that is not displaced and does not appear angulated. You will be contacted by the hospital if fracture is apparent. I would recommend wearing a hard soled shoe and follow-up your primary care provider in 3 to 4 weeks. Can take Tylenol for discomfort. Coding Level of Care Code ED Recovery Operator Helper for Zainab Rashid
== END 2021-03-27 14:14 | disposition home or self-care (01) ==
PROVIDERS: Emergency Provider Nurse Practitioner Family; PCP Emergency Medicine Emergency Medical Services
DX: S92.324A Nondisplaced fracture of second metatarsal bone, right foot, initial encounter for closed fracture (principal); Z79.4 Long term (current) use of insulin; Z85.72 Personal history of non-Hodgkin lymphomas; X58.XXXA Exposure to other specified factors, initial encounter
CPT/HCPCS: 73630; 99282

== ENCOUNTER → 2021-04-18 10:07 | Outpatient (BNVA) | payer MEDICARE, SELFPAY | PROVIDERS: PCP Emergency Medicine Emergency Medical Services; Visit Provider Internal Medicine Medical Oncology | DX: C85.88 Other specified types of non-Hodgkin lymphoma, lymph nodes of multiple sites (principal); C88.4 Extranodal marginal zone B-cell lymphoma of mucosa-associated lymphoid tissue [MALT-lymphoma]; D64.9 Anemia, unspecified | CPT/HCPCS: 80053; 83615; 85025 ==

== ENCOUNTER 2021-05-15 11:30 | Outpatient (CLI) | payer OTHER, SELFPAY ==
[2021-05-15 13:00] LABS: Basophils % 0.2 %; Eosinophils % 0.9 %; Hematocrit 28.7 % (42.0-52.0); Hemoglobin 8.9 g/dL (11.7-16.6); Lymphocytes # 0.5 10^3/uL (0.8-4.8); Lymphocytes % 12.4 %; Mean Corpuscular Hemoglobin 30.9 pg (28.0-34.0); Mean Corpuscular Volume 99.7 fl (80-94); Mean Platelet Volume 10.2 fL (7.4-10.4); Monocytes # 0.3 10^3/uL (0.2-0.9); Monocytes % 6.8 %; Neutrophils # 3.39 10^3/uL (1.8-7.7); Nucleated Red Blood Cells % 0 %; Platelet Count 163 10^3/cmm (130-400); Red Blood Count 2.88 10^6/uL (4.1-5.3); Red Cell Distribution Width 14.6 % (12.1-15.1); White Blood Count 4.3 10^3/uL (4.0-10.0)
[2021-05-15 13:17] LABS: Alanine Aminotransferase 19 U/L (0-41); Albumin Level 3.9 g/dL (3.5-5.2); Alkaline Phosphatase 70 IU/L (40-130); Anion Gap 13.3 (5-19); Aspartate Amino Transferase 22 U/L (0-40); Blood Urea Nitrogen 28 mg/dL (8-23); Calcium 8.3 mg/dL (8.5-10.5); Carbon Dioxide 22 mmol/L (22-29); Chloride 107 mmol/L (98-107); Globulin 1.8 g/dL (1.3-4.6); Glucose 251 mg/dL (65-115); Lactate Dehydrogenase 220 U/L (135-225); Osmolality Calculated 298 mOsm/kg (285-295); Potassium 5.3 mmol/L (3.5-5.1); Sodium 137 mmol/L (136-145); Total Bilirubin 0.2 mg/dL (0.15-1.2); Total Protein 5.7 g/dL (6.6-8.7)
== END 2021-05-15 11:31 | disposition home or self-care (01) ==
PROVIDERS: Nurse Practitioner Family; PCP Emergency Medicine Emergency Medical Services; Visit Provider Internal Medicine Medical Oncology
DX: Z08 Encounter for follow-up examination after completed treatment for malignant neoplasm (principal); Z85.72 Personal history of non-Hodgkin lymphomas; D64.9 Anemia, unspecified; I10 Essential (primary) hypertension; E78.5 Hyperlipidemia, unspecified; E11.9 Type 2 diabetes mellitus without complications; N40.0 Benign prostatic hyperplasia without lower urinary tract symptoms; Z79.899 Other long term (current) drug therapy; Z92.3 Personal history of irradiation
CPT/HCPCS: 36415; 80053; 83615; 85025; 99214

== ENCOUNTER → 2021-07-11 10:49 | Outpatient (BNVA) | payer OTHER, SELFPAY | PROVIDERS: PCP Emergency Medicine Emergency Medical Services; Visit Provider Internal Medicine | DX: E11.9 Type 2 diabetes mellitus without complications (principal) | CPT/HCPCS: 83036 ==

== ENCOUNTER → 2021-07-15 12:56 | Outpatient (BNVA) | payer OTHER, SELFPAY | PROVIDERS: PCP Emergency Medicine Emergency Medical Services; Visit Provider Internal Medicine | DX: E11.22 Type 2 diabetes mellitus with diabetic chronic kidney disease (principal); E11.69 Type 2 diabetes mellitus with other specified complication; N18.30 Chronic kidney disease, stage 3 unspecified; E78.5 Hyperlipidemia, unspecified; Z79.4 Long term (current) use of insulin; Z85.72 Personal history of non-Hodgkin lymphomas | CPT/HCPCS: 99214 ==

== ENCOUNTER → 2021-08-25 14:39 | Outpatient (BNVA) | payer MEDICARE, SELFPAY | PROVIDERS: PCP Emergency Medicine Emergency Medical Services; Visit Provider Internal Medicine | DX: E11.69 Type 2 diabetes mellitus with other specified complication (principal); E11.22 Type 2 diabetes mellitus with diabetic chronic kidney disease; E11.649 Type 2 diabetes mellitus with hypoglycemia without coma; N18.30 Chronic kidney disease, stage 3 unspecified; E78.5 Hyperlipidemia, unspecified; E16.0 Drug-induced hypoglycemia without coma; T38.3X5A Adverse effect of insulin and oral hypoglycemic [antidiabetic] drugs, initial encounter; Z79.4 Long term (current) use of insulin | CPT/HCPCS: 99215 ==

== ENCOUNTER → 2021-08-27 11:19 | Outpatient (BNVA) | payer OTHER, SELFPAY | PROVIDERS: PCP Emergency Medicine Emergency Medical Services; Referring Provider Emergency Medicine Emergency Medical Services; Visit Provider Surgery | DX: K42.9 Umbilical hernia without obstruction or gangrene (principal) | CPT/HCPCS: 99213 ==

== ENCOUNTER → 2021-09-15 10:55 | Outpatient (BNVA) | payer OTHER, SELFPAY | PROVIDERS: PCP Emergency Medicine Emergency Medical Services; Visit Provider Internal Medicine Medical Oncology | DX: N40.1 Benign prostatic hyperplasia with lower urinary tract symptoms (principal); C85.88 Other specified types of non-Hodgkin lymphoma, lymph nodes of multiple sites; D64.9 Anemia, unspecified | CPT/HCPCS: 80053; 83615; 85025 ==

== ENCOUNTER 2021-09-18 13:07 | Oncology outpatient (recurring) (ONCR) | payer OTHER, SELFPAY | END 2021-09-18 23:59 | disposition home or self-care (01) | PROVIDERS: PCP Emergency Medicine Emergency Medical Services; Visit Provider Internal Medicine Medical Oncology | DX: C88.4 Extranodal marginal zone B-cell lymphoma of mucosa-associated lymphoid tissue [MALT-lymphoma] (principal); D70.1 Agranulocytosis secondary to cancer chemotherapy; T45.1X5A Adverse effect of antineoplastic and immunosuppressive drugs, initial encounter; D64.9 Anemia, unspecified; Z79.899 Other long term (current) drug therapy; Z92.3 Personal history of irradiation | CPT/HCPCS: 99214 ==

== ENCOUNTER → 2021-10-14 12:54 | Outpatient (BNVA) | payer OTHER, SELFPAY | PROVIDERS: PCP Emergency Medicine Emergency Medical Services; Visit Provider Internal Medicine | DX: E11.649 Type 2 diabetes mellitus with hypoglycemia without coma (principal); C88.4 Extranodal marginal zone B-cell lymphoma of mucosa-associated lymphoid tissue [MALT-lymphoma]; Z79.4 Long term (current) use of insulin; E11.69 Type 2 diabetes mellitus with other specified complication; E11.22 Type 2 diabetes mellitus with diabetic chronic kidney disease; N18.30 Chronic kidney disease, stage 3 unspecified; E16.0 Drug-induced hypoglycemia without coma; T38.3X5A Adverse effect of insulin and oral hypoglycemic [antidiabetic] drugs, initial encounter; E78.5 Hyperlipidemia, unspecified; Z71.3 Dietary counseling and surveillance; Z68.24 Body mass index [BMI] 24.0-24.9, adult | CPT/HCPCS: 99215 ==

== ENCOUNTER 2021-12-17 14:43 | Outpatient (CLI) | payer OTHER, SELFPAY ==
--- NOTE | 2021-12-17 14:47 | US_ITS ---
WS: [id number] ULTRASOUND RENAL TECHNIQUE: Ultrasound examination of both kidneys. CLINICAL INFORMATION: STAGE 3A CHRONIC KIDNEY DZ COMPARISON: None. FINDINGS: Echogenic kidneys bilaterally compatible with medical renal disease. RIGHT: Right kidney is normal in size and appearance. Echogenicity: Normal. Cortical thickness: 1.5 cm; Normal. Hydronephrosis: None. Perinephric fluid: None. Right kidney measures: 9.9 cm x 4.8 cm x 5.3 cm. LEFT: Left kidney is normal in size and appearance. Echogenicity: Normal. Cortical thickness: 1.2 cm; Normal. Hydronephrosis: None. Perinephric fluid: None. Left kidney measures: 10.6 cm x 5.1 cm x 5.1 cm. Normal visualized aorta. Normal bladder. US/US renal BI* [id number] IMPRESSION: 1. No hydronephrosis in either kidney. 2. Echogenic kidneys bilaterally compatible with medical renal disease. 3. Normal-appearing bladder.
== END 2021-12-17 14:44 | disposition home or self-care (01) ==
LOC: RAD 14:44
PROVIDERS: PCP Emergency Medicine Emergency Medical Services; Visit Provider Internal Medicine Nephrology
DX: N18.31 Chronic kidney disease, stage 3a (principal)
CPT/HCPCS: 76770

== ENCOUNTER 2021-12-23 06:03 | Day surgery (SDC) | payer OTHER, SELFPAY ==
[2021-12-22 12:37] VITALS: BMI 25.0
[2021-12-23] VITALS (11 sets, daily range): BP systolic 154–180; BP diastolic 63–83; PULSE 55–76; RESP 18–24; TEMP 36.2–36.7; O2SAT 93–98
--- NOTE | 2021-12-23 06:11 | W.PM.OPSFHP ---
Same Day Surgery H&P Indication for Procedure/HPI DATE OF PROCEDURE: December 23, 2021 CHIEF COMPLAINT/INDICATIONFOR SURGICAL PROCEDURE: I am here for surgery PREOP DIAGNOSIS: Symptomatic umbilical hernia PLANNED PROCEDURE: Operation Date: 12/23/21 07:00 Proposed Procedures p Umbilical Hernia Repair(Not Applicable) - Manjeet Red MD 08/27/2021 This is a pleasant 85 years old gentleman well-known to me from previous clinical encounters.? Patient presents with symptomatic umbilical hernia that is getting bigger in size, ports that he been taking care of his disabled daughter and his hernia is getting worse.? He denies any signs or symptoms of bowel obstruction. Interim history 12/23/2021 Patient comes today for elective open umbilical hernia repair with possible mesh placement. ROS All systems have been reviewed negative except as for the above or per problem list. Medications/Allergies* Home Medications Medication Instructions Recorded Confirmed Type cyanocobalamin (vitamin B-12) 500 1,000 mcg PO DAILY 06/07/19 12/22/21 History mcg tablet (B-12 DOTS) pantoprazole 40 mg tablet,delayed 40 mg PO DAILY 06/07/19 12/22/21 History release (Protonix) multivitamin 1 tab PO DAILY 10/16/20 12/22/21 History cholecalciferol (vitamin D3) 25 25 mcg PO DAILY 09/18/21 12/22/21 History mcg (1,000 unit) capsule insulin glargine 100 unit/mL (3 20 unit SUBCUT QAM 09/18/21 12/22/21 History mL) subcutaneous pen (Lantus Solostar U-100 Insulin) simvastatin 5 mg tablet 5 mg PO DAILY 12/22/21 12/22/21 History Allergies/Adverse Reactions Allergy/AdvReac Type Severity Reaction Status Date / Time No Known Allergies Allergy Verified 12/23/21 06:12 Pertinent History/Comorbid Conditions* Medical History (Updated 10/14/21 @ 20:07 by Ryan Rios MD) Anemia 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] GERD (gastroesophageal reflux disease) Hyperlipidemia associated with type 2 diabetes mellitus Hypertension Tick fever Type 2 diabetes mellitus Surgical History (Updated 09/19/21 @ 07:02 by Rich Patiño MD) History of bone marrow biopsy (06/08/19) Bone marrow aspiration and biopsy Hx of esophagogastroduodenoscopy (07/28/17) EGD and colonoscopy Hx of esophagogastroduodenoscopy (02/22/18) Family History (Updated 09/18/21 @ 13:24 by Rosi Lowery LPN) Diabetes Mother Cancer Father Hypertension Denies family history of CAD (coronary artery disease) Clotting disorder Dementia Hyperlipidemia Psychiatric illness Chronic kidney disease (CKD) Suicide Anesthesia complication Bleeding disorder Lung disease Stroke Social History Smoking and tobacco status: never smoked Alcohol intake: never Marital status: / Current occupational status: retired History of recent travel: No Pertinent Exam Findings alert, oriented x 3, clear to auscultation bilaterally, regular rate & rhythm, operative site marked (Chronic umbilical hernia) and procedure specific exam findings (Abdominal exam nontender nondistended soft) Hernia got larger since last examination. Recommendations Surgery/Procedure today (Open umbilical hernia repair with possible mesh placement) Coding Level of Care Code Acute Hand Umbrella Tipper for Zainab Rashid
--- NOTE | 2021-12-23 06:26 | ANES.PREANE2 ---
Pre-Anesthetic Assessment Height/Weight: Height 1.7 m Weight 72.575 kg Temp Pulse Resp BP Pulse Ox O2 Del Method 98.1 F 76 18 175/83 98 12/23/21 06:18 12/23/21 06:18 12/23/21 06:18 12/23/21 06:18 12/23/21 06:18 12/23/21 06:18 Preop Diagnosis: Symptomatic umbilical hernia Operation Date: 12/23/21 07:00 Proposed Procedures p Umbilical Hernia Repair(Not Applicable) - Manjeet Red MD Medications/Allergies Home Medications Medication Instructions Recorded Confirmed Last Taken Type cyanocobalamin (vitamin B-12) 500 1,000 mcg PO DAILY 06/07/19 12/23/21 12/22/21 History mcg tablet (B-12 DOTS) pantoprazole 40 mg tablet,delayed 40 mg PO DAILY 06/07/19 12/23/21 12/22/21 History release (Protonix) multivitamin 1 tab PO DAILY 10/16/20 12/23/21 12/22/21 History tamsulosin 0.4 mg capsule 0.4 mg PO BID #180 caps 10/16/20 12/23/21 12/22/21 Rx flash glucose scanning reader #1 ea 08/25/21 10/14/21 Unknown Rx (FreeStyle Mandeep 2 [place]) flash glucose sensor (FreeStyle #8 ea 08/25/21 10/14/21 Unknown Rx Mandeep 2 Sensor) pen needle, diabetic 33 gauge x #100 ea 08/25/21 10/14/21 Unknown Rx 5/32 (Comfort EZ Pen [place]) cholecalciferol (vitamin D3) 25 25 mcg PO DAILY 09/18/21 12/23/21 12/22/21 History mcg (1,000 unit) capsule insulin glargine 100 unit/mL (3 20 unit SUBCUT QAM 09/18/21 12/23/21 12/22/21 History mL) subcutaneous pen (Lantus Solostar U-100 Insulin) insulin aspart U-100 100 unit/mL 5 unit (0.05 mL) SUBCUT TID #15 mL 10/14/21 12/23/21 12/22/21 Rx (3 mL) subcutaneous pen (Novolog Flexpen U-100 Insulin aspart) simvastatin 5 mg tablet 5 mg PO DAILY 12/22/21 12/23/21 12/22/21 History Allergies Allergy/AdvReac Type Severity Reaction Status Date / Time No Known Allergies Allergy Verified 12/23/21 06:12 [facility] Anesthesia Medical History Anemia 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] GERD (gastroesophageal reflux disease) Hyperlipidemia associated with type 2 diabetes mellitus Hypertension Tick fever Type 2 diabetes mellitus Surgical History History of bone marrow biopsy (06/08/19) Bone marrow aspiration and biopsy Hx of esophagogastroduodenoscopy (07/28/17) EGD and colonoscopy Hx of esophagogastroduodenoscopy (02/22/18) Family History Mother Diabetes Father Cancer Other Hypertension Denies family history of CAD (coronary artery disease) Clotting disorder Dementia Hyperlipidemia Psychiatric illness Chronic kidney disease (CKD) Suicide Anesthesia complication Bleeding disorder Lung disease Stroke Social History Smoking and tobacco status: never smoked Alcohol intake: never Marital status: / Current occupational status: retired History of recent travel: No Data Anesthesia Cardiac Studies: Echocardiogram Ultrasound 10/17/19
[2021-12-23] MEDS: sodium chloride 0.9% 1,000 ML 30 ML IV (06:40)
[2021-12-23 06:51] LABS: Glucose Point of Care 274 mg/dL (70-110)
--- NOTE | 2021-12-23 06:51 | P.ANESASSM_ITS ---
Pre-Anesthetic Assessment Height/Weight: Height 1.7 m Weight 72.575 kg Temp Pulse Resp BP Pulse Ox O2 Del Method 98.1 F 76 18 175/83 98 12/23/21 06:18 12/23/21 06:18 12/23/21 06:18 12/23/21 06:18 12/23/21 06:18 12/23/21 06:36 Preop Diagnosis: Symptomatic umbilical hernia Operation Date: 12/23/21 07:00 Proposed Procedures p Umbilical Hernia Repair(Not Applicable) - Manjeet Red MD Was Beta Santana taken within 24 hours: Yes Was Clonidine taken within 24 hours: N/A Last intake: Intake Last Liquid Date 12/22/21 Last Liquid Time 20:00 Last Solid Date 12/22/21 Last Solid Time 20:00 Social No alcohol and No tobacco Exam alert, oriented x 3, clear to auscultation bilaterally and regular rate & rhythm Airway Submandibular: within normal limits Cervical ROM: within normal limits Mallampati: Class II Dentition: full History/ROS No significant history except as noted and No significant complaints Pulmonary None reported CV/HEM Hypertension Chronic Renal Failure Hepatic None reported GI Gastroesophageal Reflux Disease Metabolic Diabetes Mellitus [facility] [place], [place] Osteoarthritis/DJD Neuropsych None reported Anesthetic Plan ASA status: 3 Anesthesia: Anesthesia Evaluation and General Risk of > 500 ml blood loss (7ml/kg in children): No Medications/Allergies Home Medications Medication Instructions Recorded Confirmed Last Taken Type cyanocobalamin (vitamin B-12) 500 1,000 mcg PO DAILY 06/07/19 12/23/21 12/22/21 History mcg tablet (B-12 DOTS) pantoprazole 40 mg tablet,delayed 40 mg PO DAILY 06/07/19 12/23/21 12/22/21 History release (Protonix) multivitamin 1 tab PO DAILY 10/16/20 12/23/21 12/22/21 History tamsulosin 0.4 mg capsule 0.4 mg PO BID #180 caps 10/16/20 12/23/21 12/22/21 Rx flash glucose scanning reader #1 ea 08/25/21 10/14/21 Unknown Rx (FreeStyle Mandeep 2 [place]) flash glucose sensor (FreeStyle #8 ea 08/25/21 10/14/21 Unknown Rx Mandeep 2 Sensor) pen needle, diabetic 33 gauge x #100 ea 08/25/21 10/14/21 Unknown Rx (Comfort EZ Pen [place]) cholecalciferol (vitamin D3) 25 25 mcg PO DAILY 09/18/21 12/23/21 12/22/21 History mcg (1,000 unit) capsule insulin glargine 100 unit/mL (3 20 unit SUBCUT QAM 09/18/21 12/23/21 12/22/21 History mL) subcutaneous pen (Lantus Solostar U-100 Insulin) insulin aspart U-100 100 unit/mL 5 unit (0.05 mL) SUBCUT TID #15 mL 10/14/21 12/23/21 12/22/21 Rx (3 mL) subcutaneous pen (Novolog Flexpen U-100 Insulin aspart) simvastatin 5 mg tablet 5 mg PO DAILY 12/22/21 12/23/21 12/22/21 History Allergies Allergy/AdvReac Type Severity Reaction Status Date / Time No Known Allergies Allergy Verified 12/23/21 06:12 COUNTS INCLUDE 234 BEDS AT THE [facility] Anesthesia Medical History Anemia 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] GERD (gastroesophageal reflux disease) Hyperlipidemia associated with type 2 diabetes mellitus Hypertension Tick fever Type 2 diabetes mellitus Surgical History History of bone marrow biopsy (06/08/19) Bone marrow aspiration and biopsy Hx of esophagogastroduodenoscopy (07/28/17) EGD and colonoscopy Hx of esophagogastroduodenoscopy (02/22/18) Family History Mother Diabetes Father Cancer Other Hypertension Denies family history of CAD (coronary artery disease) Clotting disorder Dementia Hyperlipidemia Psychiatric illness Chronic kidney disease (CKD) Suicide Anesthesia complication Bleeding disorder Lung disease Stroke Social History Smoking and tobacco status: never smoked Alcohol intake: never Marital status: / Current occupational status: retired History of recent travel: No Data Anesthesia Cardiac Studies: Echocardiogram Ultrasound 10/17/19
[2021-12-23] MEDS: heparin 5,000 unit/mL INJ 1 mL 2000 UNIT SUBCUT (06:52)
[2021-12-23] MEDS: acetaminophen 1,000 MG/100 ML PIGGYBACK 400 MG IV (06:55)
[2021-12-23] MEDS: ampicillin-sulbactam 3 GM in sodium chloride 0.9% (plus) 50 ML IV (06:58)
[2021-12-23] MEDS: lidocaine 1% INJ 20 mL SUBCUT (07:25)
--- NOTE | 2021-12-23 08:32 | P.OP_ITS ---
Operative Report Date of procedure: December 23, 2021 Pre-op diagnosis: Preop Diagnosis Symptomatic umbilical hernia Procedure done: Open umbilical hernia repair with mesh placement Implants: Polypropylene mesh 4 x 7 cm Specimens removed/disposition: Umbilical hernia and skin Umbilical hernia sac and contents Surgeon: Manjeet Red MD Restaurant Team Member: Surgical techRadha Harrison and Ariadne surgical appliances salesperson student Anesthesia: General (FORTUNE TELLER Antwon Rowan) Estimated blood loss: 10 IV fluids: 800 ml Procedure: Patient was identified in holding area and the site of the hernia was marked by me ,Patient was brought then to the operating room, general endotracheal anesthesia was administered by the anesthesia provider.prophylactic IV antibiotics were given per protocol Timeout was done verifying the patient's name/date of /planned procedure and destination after the procedure, all were in agreement. SCDs confirmed to be functioning, preoperative antibiotics administered per protocol, and beta carlos protocol was confirmed. Prep and drape of the abdomen was done under the usual sterile technique. I started by infraumbilical skin incision,and dissection was carried till the hernia sac was identified and opened,following that trimming of the edges and excising the sac,were sac and contents were sent for pathology also the excess redundant umbilical skin was excised and sent for permanent pathology.At that point the fascial defect is about three inches in diameter, after freeing all the adhesions and freeing the overlying fat on top of the fascia,to facilitate primary closure, under direct visualization I was able to use #1 PDS to close the defect primarily, as an interrupted horizontal mattress sutures,copious and through irrigation of the wound was then achieved and hemostasis. A piece of Polyproylene mesh was then decided upon and placed as an on lay technique and sutured to the underluing fascia using intrupted 2/0 silk sutures,Tension free.Following that a 2/0 Vicryl running,continiuos deep subdermal stitch was placed,followed by 3-0 Vicryl,then skin mulugeta were used for subcuticular closure of the skin incision. Lidocaine 1% was used for local infiltration.Surical glue was then applied.Followed by appropraie size Abdominal Binder. Counts of sponges,needles and instruments were completed at the end of the pr ocedure and specimen was verified. Patient tolerated the procedure well and was taken to the recovery area in stable condition after Extubation I was present for the whole entire procedure
--- NOTE | 2021-12-23 09:45 | ANE.PACU2 ---
Inpatient post-anesthesia follow up: Airway intact: Yes Vital signs: Temperature 97.7 F Pulse Rate 76 Respiratory Rate 18 Blood Pressure 166/72 Pulse Oximetry 94 Oxygen Delivery Me thod Room Air Oxygen Flow Rate 2 Fraction of Inspir ed Oxygen Hydration adequate: Yes Nausea and vomiting: No Pain level: 4 Mental status: Baseline
--- NOTE | 2021-12-23 11:18 | PC.NURSE ---
Addendum entered by Cliff Cuevas RN 12/23/21 11:21: 600 ml of pale yellow urine was collected in receptacle. procedure performed using aseptic technique and without incident. Patient expressed feeling relief after procedure was complete. Original Note: 12/23/21 1030am received verbal order for a one time straight cath from Dr Krystle Romo due to patients discomfort from having a full bladder. straight catheter placed and a600
== END 2021-12-23 10:58 | disposition home or self-care (01) ==
PROVIDERS: PCP Emergency Medicine Emergency Medical Services; Visit Provider Surgery
PROC: (CPT 49585; principal; 2021-12-23 07:00)
DX: K42.9 Umbilical hernia without obstruction or gangrene (principal); K21.9 Gastro-esophageal reflux disease without esophagitis; Z79.4 Long term (current) use of insulin; N40.1 Benign prostatic hyperplasia with lower urinary tract symptoms; N13.8 Other obstructive and reflux uropathy; E11.22 Type 2 diabetes mellitus with diabetic chronic kidney disease; I12.9 Hypertensive chronic kidney disease with stage 1 through stage 4 chronic kidney disease, or unspecified chronic kidney disease; N18.30 Chronic kidney disease, stage 3 unspecified; E78.5 Hyperlipidemia, unspecified
CPT/HCPCS: 49585; 36416; 51702; 82962; 88302; J0295; J1100; J1644; J2405; J2704; J2710; J3010; J3490; J7030

== ENCOUNTER 2021-12-26 12:48 | Inpatient (IN) | payer OTHER, SELFPAY ==
[2021-12-26] VITALS (10 sets, daily range): BP systolic 138–177; BP diastolic 66–81; PULSE 72–96; RESP 16–23; TEMP 36.9–37.6; O2SAT 93–96; BMI 25.0
--- NOTE | 2021-12-26 13:15 | W.ED.GENADLT ---
HPI - General Adult General: Chief complaint: General Medical Stated complaint: Constipation and fever Time Seen by Provider: 12/26/21 13:15 History of Present Illness: Mr. Curiel is an 86-year-old gentleman postop day 3 from a open umbilical hernia repair with mesh placement presenting to the emergency department due to abdominal pain and back pain. He has noticed decreased stool output and nausea associated with decreased p.o. intake. Generalized abdominal discomfort and back pain which is moderate. Denies fevers or chills though did have measured fever yesterday. Overall intensity symptoms has worsened. He has tried [id number] medications without relief of his constipation. No other specific changes in health, exacerbating, or alleviating factors identified. 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] GERD (gastroesophageal reflux disease) Hyperlipidemia associated with type 2 diabetes mellitus Hypertension Postoperative ileus Tick fever Type 2 diabetes mellitus Surgical History History of bone marrow biopsy (06/08/19) Bone marrow aspiration and biopsy Hx of colonoscopy Hx of esophagogastroduodenoscopy (07/28/17) EGD and colonoscopy Hx of esophagogastroduodenoscopy (02/22/18) Family History Mother Diabetes Father Cancer Other Hypertension Denies family history of CAD (coronary artery disease) Clotting disorder Dementia Hyperlipidemia Psychiatric illness Chronic kidney disease (CKD) Suicide Anesthesia complication Bleeding disorder Lung disease Stroke Social History Smoking and tobacco status: never smoked Alcohol intake: never Marital status: / Current occupational status: retired History of recent travel: No Physical Exam Const: COMMON NORMALS: alert GENERAL APPEARANCE: cooperative and well developed HENMT: COMMON NORMALS: normocephalic and atraumatic HEAD & SCALP: normocephalic and atraumatic Eye: COMMON NORMALS: conjunctivae normal CONJUNCTIVA: Yes conjunctivae normal SCLERA: sclerae normal Neck/C-Spine: COMMON NORMALS: supple GENERAL: Yes trachea midline Resp: COMMON NORMALS: clear to auscultation bilaterally EFFORT & INSPECTION: Yes able to speak in complete sentences AUSCULTATION: clear to auscultation bilaterally Cardio: COMMON NORMALS: regular rate and regular rhythm RATE: regular rate RHYTHM: regular rhythm GI: COMMON NORMALS: Soft to palpation PALPATION: Yes Soft to palpation, Yes Tenderness to palpation present (GI), No Guarding due to palpation present (GI) and No Rigid due to palpation Extremity: GENERAL: Yes normal exam except as noted and No edema Neuro: COMMON NORMALS: moves all extremities SENSORIUM/ORIENTATION: Yes alert and No Orientation impaired Psych: COMMON NORMALS: mental status grossly normal and Normal thought process present THOUGHT PROCESS: Normal thought process present Course Vital Signs: Vital signs: Vital Signs Temperature 98.2 F 12/28/21 14:28 Pulse Rate 64 12/28/21 14:28 Respiratory Rate 17 12/28/21 14:28 Blood Pressure 114/67 12/28/21 14:28 Pulse Oximetry 97 12/28/21 14:28 Oxygen Delivery Me thod 12/28/21 11:33 Oxygen Flow Rate 2 12/27/21 08:00 [facility] - General Adult Medical Decision Making 86-year-old gentleman presenting with worsening postoperative symptoms. Labs notable for leukocytosis and anemia. Metabolic end with some evidence of dehydration, hyperglycemia is significant. ANTOINETTE present. No evidence of UTI. CT imaging notable for likely postoperative changes and likely bladder outlet obstruction. Gaffney catheter placement patient admitted for observation with symptoms likely related to bladder outlet obstruction resulting in acute urinary retention and ANTOINETTE. Patient agreeable with plan. Medical Records I reviewed the patient's medical records. Lab Data I reviewed the patient's lab results. : 12/27/21 03:21 12/28/21 11:10 Radiology Impressions Abdomen/Pelvis CT 12/26/21 13:32 IMPRESSION: 1. Recent postoperative day 3 umbilical hernia repair with air and fluid at the surgical corridor in the subcutaneous soft tissues. This is likely benign postoperative fluid considering recent postoperative status. Recommend correlation for infection and overlying cellulitis. 2. Moderate bilateral hydronephrosis with bilateral moderate ureterectasis. No obstructing calculi. 3. Markedly enlarged prostate appears progressed compared to the previous examinations suspicious for neoplasia with markedly distended urinary bladder consistent with bladder outlet obstruction. Correlation PSA. 4. Obstructive hydronephrosis likely due to obstruction at the level of the UVJ due to markedly enlarged prostate versus bladder outlet obstruction. This can be followed up after bladder drainage. 5. Moderate esophageal hiatal hernia. 6. Compressive atelectasis RIGHT lower lobe and RIGHT middle lobe. Trace pleural fluid. 7. Postoperative ileus involving the transverse colon. Notified Jeanmarie Hamilton MD at 12/26/2021 2:16 PM. Renal Ultrasound 12/28/21 11:42 IMPRESSION: 1. Parapelvic cyst left kidney 2. Otherwise Unremarkable kidneys and bladder. Laboratory Results WBC 11.5 10^3/uL (4.0-10.0) H 12/26/21 13:45 RBC 3.50 10^6/uL (4.1-5.3) L 12/26/21 13:45 Hgb 10.6 g/dL (11.7-16.6) L 12/26/21 13:45 Hct 33.4 % (42.0-52.0) L 12/26/21 13:45 MCV 95.4 fl (80-94) H 12/26/21 13:45 MCH 30.3 pg (28.0-34.0) 12/26/21 13:45 MCHC 31.7 g/dL (30.0-36.0) 12/26/21 13:45 RDW 14.7 % (12.1-15.1) 12/26/21 13:45 Plt Count 176 10^3/cmm (130-400) 12/26/21 13:45 MPV 11.2 fL (7.4-10.4) H 12/26/21 13:45 Neut % (Auto) 87.6 % 12/26/21 13:45 Lymph % (Auto) 5.2 % 12/26/21 13:45 [place] % (Auto) 6.2 % 12/26/21 13:45 Eos % (Auto) 0.1 % 12/26/21 13:45 Baso % (Auto) 0.1 % 12/26/21 13:45 Neut # (Auto) 10.06 10^3/uL (1.8-7.7) H 12/26/21 13:45 Lymph # (Auto) 0.6 10^3/uL (0.8-4.8) L 12/26/21 13:45 [place] # (Auto) 0.7 10^3/uL (0.2-0.9) 12/26/21 13:45 Eos # (Auto) 0.0 10^3/uL (0.0-0.8) 12/26/21 13:45 Baso # (Auto) 0.0 10^3/uL (0.0-0.1) 12/26/21 13:45 Nucleated RBC % (auto) 0 % 12/26/21 13:45 Nucleated RBCs # 0.0 /100WBC 12/26/21 13:45 Sodium 131 mmol/L (136-145) L 12/26/21 13:45 Potassium 4.8 mmol/L (3.5-5.1) 12/26/21 13:45 Chloride 98 mmol/L (98-107) 12/26/21 13:45 Carbon Dioxide 19 mmol/L (22-29) L 12/26/21 13:45 Anion Gap 18.8 (5-19) 12/26/21 13:45 BUN 55 mg/dL (8-23) H 12/26/21 13:45 Creatinine 3.3 mg/dL (0.7-1.2) H 12/26/21 13:45 GFR Calculation Not Reportable 12/26/21 13:45 Glucose 562 mg/dL (65-115) H* 12/26/21 13:45 POC Glucose 373 mg/dL (70-110) H 12/26/21 15:35 Calculated Osmolality 313 mOsm/kg (285-295) H 12/26/21 13:45 Lactate 1.4 mmol/L (0.5-2.2) 12/26/21 13:45 Calcium 8.6 mg/dL (8.5-10.5) 12/26/21 13:45 Iron 13 ug/dL (59-158) L 12/26/21 13:45 TIBC 167 mcg/dl 12/26/21 13:45 % Saturation 7.7 % (20-50) L 12/26/21 13:45 Unsat Iron Binding 154 ug/dL (112-347) 12/26/21 13:45 Total Bilirubin 0.6 mg/dL (0.15-1.2) 12/26/21 13:45 AST 22 U/L (0-40) 12/26/21 13:45 ALT 20 U/L (0-41) 12/26/21 13:45 Alkaline Phosphatase 87 U/L (40-130) 12/26/21 13:45 Total Protein 6.4 g/dL (6.6-8.7) L 12/26/21 13:45 Albumin 3.3 g/dL (3.5-5.2) L 12/26/21 13:45 Globulin 3.1 g/dL (1.3-4.6) 12/26/21 13:45 Lipase 6 U/L (13-60) L 12/26/21 13:45 Vitamin B12 1271 pg/mL (232-1245) H 12/26/21 13:45 TSH 0.92 uIU/mL (0.27-4.20) 12/26/21 13:45 Urine Color Yellow (Yellow) 12/26/21 15:22 Urine Appearance Clear (CLEAR) 12/26/21 15:22 Urine pH 5 (5-7) 12/26/21 15:22 Ur Specific [place] 1.010 (1.005-1.030) 12/26/21 15:22 Urine Protein Neg (Negative) 12/26/21 15:22 Urine Glucose (UA) 4+ (Normal) H 12/26/21 15:22 Urine Ketones Negative (Negative) 12/26/21 15:22 Urine Blood 2+ (Negative) H 12/26/21 15:22 Urine Nitrate Negative (Negative) 12/26/21 15:22 Urine Bilirubin Neg (Negative) 12/26/21 15:22 Urine Urobilinogen Neg mg/dL (Negative) 12/26/21 15:22 Ur Leukocyte Esterase Negative (Negative) 12/26/21 15:22 Urine RBC 0-4 /hpf (0-2) H 12/26/21 15:22 Urine WBC 0-4 /hpf (0-5) H 09/23/22 15:22 Ur Squamous Epith Cells None /hpf (0-5) 12/26/21 15:22 Amorphous Sediment Not Reportable 12/26/21 15:22 Urine Bacteria None /hpf (NONE) 12/26/21 15:22 Discharge Plan Discharge Patient Disposition: Placed in Observation Admit Provider: Rodrigue Monroy Clinical Impression: Bladder outlet obstruction, Urinary retention, ANTOINETTE (acute kidney injury), Hyperglycemia Discharge Diet: Advance as tolerated Discharge Activity: Limit activity as instructed Coding Level of Care Code ED [place] for Chg Fwd Exam Comprehensive
--- NOTE | 2021-12-26 13:32 | CT_ITS ---
WS: [id number] CT ABDOMEN PELVIS TECHNIQUE: Noncontrast CT of the abdomen and pelvis with coronal and sagittal reformatted images. CLINICAL INFORMATION: post op constipation/abd pain/back pain COMPARISON: November 23, 2019 Hand September 19, 2019 DLP: 583.[address] scans at [facility] use at least one of these dose optimization techniques: automated e xposure control; mA and/or kV adjustment per patient size (includes targeted exams where dose is matc hed to clinical indication); or iterative reconstruction. FINDINGS: Trace bilateral pleural fluid. Compressive atelectasis in the RIGHT lower lobe and RIGHT middle lob e. Small pericardial effusion. Stable lobulated RIGHT hepatic cyst is unchanged. Moderate esophageal hiatal hernia. Splenic artery calcification. Normal noncontrast spleen. Adrenal glands are normal. Moderate bilateral hydronephrosis appears new compared to November 04, 2020. No obstructing renal or ureteral calculi. Obstruction likely due to markedly enlarged prostate with bladder outlet obstruction. Heterogeneous enhancing nodular prostate measures 6 x 1 x 6.2 cm suspicio us for neoplasia. Recommend correlation PSA. This appears progressed in size compared to the previous examinations. Marked bladder distention. Fatty atrophy of the pancreas. Splenic artery calcification. Normal calibe r abdominal aorta. Mild aortic calcification. Interval postoperative changes fat-containing umbilical hernia with postoperative changes at the oper ative site. Small amount of fluid and air at the operative site with mild induration likely due to re cent postoperative change. Abscess less likely considering recent 3 day postoperative status. No anam iated bowel. Distended transverse colon and with air and fecal retention. Fecal retention in the cecum. LEFT desce nding colon and sigmoid colon are decompressed. Findings likely due to postoperative adynamic ileus. Small amount of fluid in the stomach. Previously described mesenteric nodule measuring 2.5 cm best on coronal imaging is unchanged. CT/CT abdomen pelvis wo con [id number] IMPRESSION: 1. Recent postoperative day 3 umbilical hernia repair with air and fluid at th e surgical corridor in the subcutaneous soft tissues. This is likely benign pos toperative fluid considering recent postoperative status. Recommend correlation for infection and overlying cellulitis. 2. Moderate bilateral hydronephrosis with bilateral moderate ureterectasis. No obstructing calculi. 3. Markedly enlarged prostate appears progressed compared to the previous exam inations suspicious for neoplasia with markedly distended urinary bladder consi stent with bladder outlet obstruction. Correlation PSA. 4. Obstructive hydronephrosis likely due to obstruction at the level of the UV J due to markedly enlarged prostate versus bladder outlet obstruction. This can be followed up after bladder drainage. 5. Moderate esophageal hiatal hernia. 6. Compressive atelectasis RIGHT lower lobe and RIGHT middle lobe. Trace pleur al fluid. 7. Postoperative ileus involving the transverse colon. Notified Jeanmarie Hamilton MD at 12/26/2021 2:16 PM.
[2021-12-26 13:51] LABS: Basophils % 0.1 %; Eosinophils % 0.1 %; Hematocrit 33.4 % (42.0-52.0); Hemoglobin 10.6 g/dL (11.7-16.6); Lymphocytes # 0.6 10^3/uL (0.8-4.8); Lymphocytes % 5.2 %; Mean Corpuscular HGB Conc 31.7 g/dL (30.0-36.0); Mean Corpuscular Hemoglobin 30.3 pg (28.0-34.0); Mean Corpuscular Volume 95.4 fl (80-94); Mean Platelet Volume 11.2 fL (7.4-10.4); Monocytes # 0.7 10^3/uL (0.2-0.9); Monocytes % 6.2 %; Neutrophils # 10.06 10^3/uL (1.8-7.7); Neutrophils % 87.6 %; Nucleated Red Blood Cells % 0 %; Platelet Count 176 10^3/cmm (130-400); Red Cell Distribution Width 14.7 % (12.1-15.1); White Blood Count 11.5 10^3/uL (4.0-10.0)
[2021-12-26 14:08] LABS: Lactate (Lactic Acid level) 1.4 mmol/L (0.5-2.2)
[2021-12-26] MEDS: lactated ringers 500 ML 999 ML IV (14:08)
[2021-12-26 14:15] LABS: Alanine Aminotransferase 20 U/L (0-41); Albumin Level 3.3 g/dL (3.5-5.2); Alkaline Phosphatase 87 U/L (40-130); Anion Gap 18.8 (5-19); Aspartate Amino Transferase 22 U/L (0-40); Blood Urea Nitrogen 55 mg/dL (8-23); Calcium 8.6 mg/dL (8.5-10.5); Carbon Dioxide 19 mmol/L (22-29); Chloride 98 mmol/L (98-107); Globulin 3.1 g/dL (1.3-4.6); Lipase 6 U/L (13-60); Osmolality Calculated 313 mOsm/kg (285-295); Potassium 4.8 mmol/L (3.5-5.1); Sodium 131 mmol/L (136-145); Total Bilirubin 0.6 mg/dL (0.15-1.2); Total Protein 6.4 g/dL (6.6-8.7)
[2021-12-26 14:18] LABS: Glucose 562 mg/dL (65-115)
[2021-12-26] MEDS: insulin regular-human 100 units/1 mL 10 UNIT IVP (14:40)
[2021-12-26] MEDS: lidocaine 2% Urojet 20 mL TOPICAL (14:51)
[2021-12-26] MEDS: tamsulosin 0.4 mg Capsule PO ×2 (15:39→18:28)
[2021-12-26 15:40] LABS: Glucose Point of Care 373 mg/dL (70-110)
[2021-12-26 15:40] LABS: Glucose Point of Care 352 mg/dL (70-110)
[2021-12-26 15:40] LABS: Protein Urine Neg (Negative); Urine Appearance Clear (CLEAR); Urine Color Yellow (Yellow); pH Urine 5 (5-7)
[2021-12-26 15:41] LABS: Glucose Urine UA 4+ (Normal)
[2021-12-26 15:42] LABS: Add Urine Culture? No; Add Urine Microscopic? YES; Bilirubin Urine Neg (Negative); Blood Urine 2+ (Negative); Ketones Urine Negative (Negative); Leukocyte Esterase Urine Negative (Negative); Nitrate Urine Negative (Negative); RBC Urine 0-4 /hpf (0-2); Urobilinogen Urine Neg (Negative); WBC Urine 0-4 /hpf (0-5)
--- NOTE | 2021-12-26 16:43 | P.CONIM_ITS ---
Providers/Reason For Consult Consulting Physician/Specialty*: Manjeet Red MD Reason for Consult*: Postoperative ileus Requesting Physician: Attending Physician: Dr. Sanchez Primary Care Provider: Baldev Issa DO History of Present Illness History of Present Illness Mr. 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 Apparently the patient's son contacted my office today with concern of low-grade fever and constipation. I gave some instructions to my staff to educate the patient that he can be started on lactulose and apparently in the interim the patient had already gone to the emergency department where further work-up was done in the form of laboratory blood work and did show; WBC count of 11.5, hemoglobin 10.6, platelet count 176, sodium 131, potassium 4.8, serum creatinine 3.3 and glucose 562. In addition to that CT of the abdomen pelvis was done and did show; 1.? Recent postoperative day 3 umbilical hernia repair with air and fluid at the surgical corridor in the subcutaneous soft tissues. This is likely benign postoperative fluid considering recent postoperative status. Recommend correlation for infection and overlying cellulitis. 2.? Moderate bilateral hydronephrosis with bilateral moderate ureterectasis. No obstructing calculi. 3.? Markedly enlarged prostate appears progressed compared to the previous examinations suspicious for neoplasia with markedly distended urinary bladder consistent with bladder outlet obstruction. Correlation PSA. 4.? Obstructive hydronephrosis likely due to obstruction at the level of the UVJ due to markedly enlarged prostate versus bladder outlet obstruction. This can be followed up after bladder drainage. 5.? Moderate esophageal hiatal hernia. 6.? Compressive atelectasis RIGHT lower lobe and RIGHT middle lobe. Trace pleur al fluid. 7.? Postoperative ileus involving the transverse colon. Patient will be admitted to the hospitalist service because of the laboratory findings and general surgery was made aware and consulted to follow on the patient while he is in the hospital. Patient was also found to have urinary retention and a Gaffney catheter was inserted revealing 1 L of urine. Patient was seen and evaluated in the emergency department room #5 Review of Systems General: Reports: 10 or more systems reviewed and unremarkable except in HPI and below Medications/Allergies Home Medications Medication Instructions Recorded Confirmed Last Taken Type cyanocobalamin (vitamin B-12) 500 1,000 mcg PO DAILY 06/07/19 12/26/21 12/25/21 History mcg tablet (B-12 DOTS) pantoprazole 40 mg tablet,delayed 40 mg PO DAILY 06/07/19 12/26/21 12/25/21 History release (Protonix) multivitamin 1 tab PO DAILY 10/16/20 12/26/21 12/25/21 History tamsulosin 0.4 mg capsule 0.4 mg PO BID #180 caps 10/16/20 12/26/21 12/26/21 Rx flash glucose scanning reader #1 ea 08/25/21 12/26/21 Unknown Rx (FreeStyle Mandeep 2 [place]) flash glucose sensor (FreeStyle #8 ea 08/25/21 12/26/21 Unknown Rx Mandeep 2 Sensor) pen needle, diabetic 33 gauge x #100 ea 08/25/21 12/26/21 Unknown Rx 5/32 (Comfort EZ Pen [place]) cholecalciferol (vitamin D3) 25 25 mcg PO DAILY 09/18/21 12/26/21 12/25/21 History mcg (1,000 unit) capsule insulin aspart U-100 100 unit/mL 5 unit (0.05 mL) SUBCUT TID #15 mL 10/14/21 12/26/21 12/26/21 Rx (3 mL) subcutaneous pen (Novolog Flexpen U-100 Insulin aspart) hydrocodone 5 mg-acetaminophen 325 1 tab PO Q6H PRN Pain 12/26/21 12/26/21 Unknown History mg tablet insulin glargine 100 unit/mL 20 unit SUBCUT QPM 12/26/21 12/26/21 12/25/21 History subcutaneous solution lactulose 10 gram/15 mL oral 30 ml PO Q6H PRN constipation 3 12/26/21 12/26/21 Unknown Rx solution days #360 mL simvastatin 80 mg tablet 40 mg PO QPM 12/26/21 12/26/21 12/25/21 History Allergies Allergy/AdvReac Type Severity Reaction Status Date / Time No Known Allergies Allergy Verified 12/26/21 16:46 PFSH Acute PFSH: Medical History (Updated 12/26/21 @ 16:54 by Rodrigue Monroy MD) Anemia 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] GERD (gastroesophageal reflux disease) Hyperlipidemia associated with type 2 diabetes mellitus Hypertension Tick fever Type 2 diabetes mellitus Surgical History (Updated 12/26/21 @ 16:48 by Rodrigue Monroy MD) History of bone marrow biopsy (06/08/19) Bone marrow aspiration and biopsy Hx of colonoscopy Hx of esophagogastroduodenoscopy (07/28/17) EGD and colonoscopy Hx of esophagogastroduodenoscopy (02/22/18) Family History Mother Diabetes Father Cancer Other Hypertension Denies family history of CAD (coronary artery disease) Clotting disorder Dementia Hyperlipidemia Psychiatric illness Chronic kidney disease (CKD) Suicide Anesthesia complication Bleeding disorder Lung disease Stroke Social History Smoking and tobacco status: never smoked Alcohol intake: never Marital status: / Current occupational status: retired History of recent travel: No Vitals/I&O/Wt Last Vital Signs Temp 98.5 F 12/26/21 12:55 Pulse 84 12/26/21 16:28 Resp 23 H 12/26/21 16:28 BP 142/72 12/26/21 16:28 Pulse Ox 95 12/26/21 16:28 O2 Del Method 12/26/21 16:28 O2 Flow Rate 2 12/26/21 16:28 12/26/21 12/26/21 12/26/21 06:59 14:59 22:59 Intake Total 500 / 500 Balance 500 / 500 Weight last 48 hrs Weight 160 lb Physical Exam Narrative: Patient is conscious alert oriented X3 No apparent distress BMI 25.1 Head and neck examination PERRLA no masses no cervical lymphadenopathy no jaundice Cardiac examination audible S1-S2 no murmurs no gallops no arrhythmias Chest is clear bilateral,abscence of Rhonchi or wheezes,no surgical emphysema Abdomen nontender except mildly at the incision site otherwise clean dry and intact and mulugeta in place and no evidence of surgical site infection n ondistended soft no organomegaly guarding or rigidity/no signs of peritonitis Gaffney catheter in place Urinary Catheter Management: Coude: Cath Placed During This Visit: yes Urinary Catheter Date of Insertion: 12/26/21 Urinary Catheter Time of Insertion: 15:24 Data : 12/26/21 13:45 12/26/21 13:45 A&P Assessment and plan (1) Postoperative ileus: After further history taking physical examination and reviewing the chart and images with my personal interpretation, certainly the patient does have component of constipation and obstructive uropathy that is resolving by insertion of the Gaffney catheter. Patient had a small bowel movement postoperatively when he went home and today he passed some gas. From general surgery standpoint of view my recommendations is: 1-clear liquid diet(none concentrated sweet) 2-Metamucil twice daily 3-glycerin suppositories as needed 4-appropriate hydration and management of medical comorbidities per hospitalist service 5-we will continue to follow on the patient's clinical progress 6-incentive spirometer every hour 7-pharmacologic DVT prophylaxis I will make myself available for any further questions or concerns Consult Attestations Medical Necessity Statement: Per admitting service Coding Level of Care Code Acute Warp Dyeing Tender for Zainab Rashid Diagnoses Postoperative ileus K91.89; K56.7
--- NOTE | 2021-12-26 16:47 | PM.HP ---
Providers/Chief Complaint Primary Care Provider: Baldev Issa DO Chief Complaint: Constipation and fever History of Present Illness Earle Curiel is a 86 year old male with past medical history of moderately severe anemia, marginal zone lymphoma, hypertension, hyperlipidemia, type 2 diabetes mellitus, benign prostatic hypertrophy who was recently in hospital on 12/23 when he underwent umbilical hernia repair with mesh. During surgery patient was catheterized. He comes back to the ER today because of nausea, decreased urinary output along with 1 bowel movement since discharge. He was found to be in acute kidney injury along with urinary outlet obstruction for which Gaffney catheter was placed in the ER and more than 1000 cc of urine was evacuated. He was also found to have bilateral hydroureteronephrosis and ileus. He was given 5 cc of LR in the ER. On examination patient can comfortably in bed with family at bedside. Denies any complaints other than nausea. Did have lower back pain at home which is relieved after Gaffney catheterization. States he has nausea because of which he is scared to eat as he believes he will have vomiting. Has had 1 bowel movement since discharge with poor oral intake. Review of Systems General: Reports: 10 or more systems reviewed and unremarkable except in HPI and below Const: Denies: fever(s), chills, body aches, change in appetite, change in weight, malaise, night sweats, diaphoresis, change in sleep pattern, daytime sleepiness or snoring Eyes: Denies: change in vision, blurry vision, photophobia, eye discomfort or eye discharge ENMT: Denies: throat pain, enlarged tonsils, hoarseness, mouth pain, oral sores, dry mouth, tinnitus, nasal congestion or post nasal drip Card: Denies: chest pain, palpitations, irregular heart rhythm, edema, swelling of feet/ankles, lightheadedness, syncope, pre-syncope, dyspnea on exertion, orthopnea, leg pain with exertion or acrocyanosis Resp: Denies: dyspnea, productive cough, non-productive cough, wheezing, stridor, pain on inspiration, change in phlegm color, hemoptysis or chest congestion GI: Denies: abdominal pain, nausea, vomiting, hematemesis, coffee ground emesis, dysphagia, heartburn, diarrhea, constipation, bloating, GI cramping, change in bowel habits, pain on defecation, hematochezia or melena : Denies: flank pain, difficulty urinating, dysuria, urinary frequency, urinary urgency, urinary hesitancy, urinary dribbling, difficulty starting urination, change in urine stream, nocturia or hematuria Musc: Denies: neck pain, back pain, extremity pain, joint pain, joint swelling, joint redness, joint stiffness or limited range of motion Neuro: Denies: headache(s), numbness in extremities, weakness in extremities, sensory changes, lack of coordination, difficulty walking, frequent falls, dizziness, vertigo, confusion, Slurred speech present, difficulty communicating thoughts or seizure-like activity Psych: Denies: anxiety, depression, mood swings, panic attacks, hopelessness or irritability Endo: Denies: polyuria, polydipsia, tired all the time, cold intolerance, excessive sweating, flushing or heat intolerance Kane/Lymph: Denies: easy bruising or easy bleeding All/Imm: Denies: tongue swelling, facial swelling or acute wheezing Medications/Allergies Home Medications Medication Instructions Recorded Confirmed Last Taken Type cyanocobalamin (vitamin B-12) 500 1,000 mcg PO DAILY 06/07/19 12/26/21 12/25/21 History mcg tablet (B-12 DOTS) pantoprazole 40 mg tablet,delayed 40 mg PO DAILY 06/07/19 12/26/21 12/25/21 History release (Protonix) multivitamin 1 tab PO DAILY 10/16/20 12/26/21 12/25/21 History tamsulosin 0.4 mg capsule 0.4 mg PO BID #180 caps 10/16/20 12/26/21 12/26/21 Rx flash glucose scanning reader #1 ea 08/25/21 12/26/21 Unknown Rx (FreeStyle Mandeep 2 [place]) flash glucose sensor (FreeStyle #8 ea 08/25/21 12/26/21 Unknown Rx Mandeep 2 Sensor) pen needle, diabetic 33 gauge x #100 ea 08/25/21 12/26/21 Unknown Rx (Comfort EZ Pen [place]) cholecalciferol (vitamin D3) 25 25 mcg PO DAILY 09/18/21 12/26/21 12/25/21 History mcg (1,000 unit) capsule insulin aspart U-100 100 unit/mL 5 unit (0.05 mL) SUBCUT TID #15 mL 10/14/21 12/26/21 12/26/21 Rx (3 mL) subcutaneous pen (Novolog Flexpen U-100 Insulin aspart) hydrocodone 5 mg-acetaminophen 325 1 tab PO Q6H PRN Pain 12/26/21 12/26/21 Unknown History mg tablet insulin glargine 100 unit/mL 20 unit SUBCUT QPM 12/26/21 12/26/21 12/25/21 History subcutaneous solution lactulose 10 gram/15 mL oral 30 ml PO Q6H PRN constipation 3 12/26/21 12/26/21 Unknown Rx solution days #360 mL simvastatin 80 mg tablet 40 mg PO QPM 12/26/21 12/26/21 12/25/21 History Allergies Allergy/AdvReac Type Severity Reaction Status Date / Time No Known Allergies Allergy Verified 12/26/21 16:46 PFSH Acute PFSH: Medical History (Updated 12/26/21 @ 16:54 by Rodrigue Monroy MD) Anemia 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] GERD (gastroesophageal reflux disease) Hyperlipidemia associated with type 2 diabetes mellitus Hypertension Tick fever Type 2 diabetes mellitus Surgical History (Updated 12/26/21 @ 16:48 by Rodrigue Monroy MD) History of bone marrow biopsy (06/08/19) Bone marrow aspiration and biopsy Hx of colonoscopy Hx of esophagogastroduodenoscopy (07/28/17) EGD and colonoscopy Hx of esophagogastroduodenoscopy (02/22/18) Family History Mother Diabetes Father Cancer Other Hypertension Denies family history of CAD (coronary artery disease) Clotting disorder Dementia Hyperlipidemia Psychiatric illness Chronic kidney disease (CKD) Suicide Anesthesia complication Bleeding disorder Lung disease Stroke Social History Smoking and tobacco status: never smoked Alcohol intake: never Marital status: / Current occupational status: retired History of recent travel: No Vitals/I&O/Wt Last Vital Signs Temp 98.5 F 12/26/21 12:55 Pulse 84 12/26/21 16:28 Resp 23 H 12/26/21 16:28 BP 142/72 12/26/21 16:28 Pulse Ox 95 12/26/21 16:28 O2 Del Method 12/26/21 16:28 O2 Flow Rate 2 12/26/21 16:28 12/26/21 12/26/21 12/26/21 06:59 14:59 22:59 Intake Total 500 / 500 Balance 500 / 500 Weight last 48 hrs Weight 72.575 kg Physical Exam Narrative: General: No acute distress, AO x3, dehydrated HEENT: PERRLA, pupils bilaterally equal and reactive Chest: Normal vesicular breath sounds, no added sounds, equal good air entry bilaterally CVS: S1-S2 regular, no murmurs, no tachycardia, no gallops, no rubs Abdomen: Soft, nontender, no organomegaly, bowel sounds present Neuro: No focal deficits, no facial deformity, AO x3, power 5/5 in all limbs Urinary Catheter Management: Coude: Cath Placed During This Visit: yes Urinary Catheter Date of Insertion: 12/26/21 Urinary Catheter Time of Insertion: 15:24 Data : 12/26/21 13:45 12/26/21 13:45 A&P Assessment and plan (1) ANTOINETTE (acute kidney injury): ANTOINETTE secondary to urinary retention from bladder outlet obstruction. Maintain Gaffney catheterization. Recheck BMP daily for now. During hospitalization will recheck ultrasound KUB to monitor for hydronephrosis. Normal saline at 75 cc/h for now. Continue with home dose of Flomax 0.4 twice daily. Will add finasteride 5 mg daily for now. (2) Urinary retention: (3) Bladder outlet obstruction: With bilateral hydronephrosis and bilateral moderate ureterectasis without obstructing calculi. Gaffney catheterization. Most likely will be discharged with Gaffney catheterization and follow-up with urology as an outpatient. (4) Postoperative ileus: Postoperative day 3. Primary surgeon consulted from the ER. Bowel regimen with milk of mag and senna Colace. Early ambulation. Full liquid diet for now. (5) CKD stage 3 secondary to diabetes: Baseline creatinine 1.3-1.5. Medical reconciliation done for nephrotoxic drugs. (6) Diabetes type 2, controlled: Hyperglycemia on presentation. Normal saline as above. Continue with home dose of glargine 20 units nightly along with sliding scale low-dose protocol for now. (7) Bilateral hydronephrosis: Plan Analgesia: Tylenol as needed hold off on Western for now. Glycemic control: Glargine 20 units nightly, low-dose protocol insulin sliding scale Nutrition: Full liquid, carb consistent CODE STATUS: Full code PUD prophylaxis: Protonix DVT prophylaxis: Heparin 5000 every 12 hourly Discharge planning: Discharge home with caregiver once renal functions closer to baseline for trending down consistently Admit to [facility] This documentation was created by [employer] cloth finishing range operator chief software. Every effort was made to ensure accuracy of cloth finishing range operator chief. Any obvious errors or omissions should be clarified with the author of the document. Attestations Medical Necessity Statement*: Admission for more than 2 midnights for management of ANTOINETTE secondary to bladder outlet obstruction along with bilateral hydroureteronephrosis in setting of recent surgery and postoperative ileus Time Spent in Patient Care: Greater than 35 minutes Coding Level of Care Code Acute Customer Account Specialist for Chg Fwd Diagnoses ANTOINETTE (acute kidney injury) N17.9 Urinary retention R33.9 Bladder outlet obstruction N32.0 Postoperative ileus K91.89; K56.7 CKD stage 3 secondary to diabetes E11.22; N18.30 Diabetes type 2, controlled E11.9 Bilateral hydronephrosis N13.30
[2021-12-26 17:24] LABS: Thyroid Stimulating Hormone 0.92 uIU/mL (0.27-4.20)
--- NOTE | 2021-12-26 17:56 | PC.NURSE ---
Called report to BELL Gipson
[2021-12-26] MEDS: lactulose oral liq 20 gm/30 mL UDC 30 GM PO (18:26)
[2021-12-26] MEDS: sodium chloride 0.9% 1,000 ML 75 ML IV (18:26)
[2021-12-26] MEDS: glycerin adult supp 1 EACH PR (18:27)
[2021-12-26] MEDS: insulin glargine 100 units/1 mL 20 UNIT SUBCUT (18:27)
[2021-12-26] MEDS: docusate sodium 100 mg Capsule PO (18:27)
[2021-12-26] MEDS: psyllium powder Pkt 1 PACKET PO (18:27)
[2021-12-26] MEDS: heparin 5,000 unit/mL INJ 1 mL 5000 UNIT SUBCUT (18:28)
[2021-12-26] MEDS: atorvastatin 40 mg Tablet PO (18:28)
[2021-12-26] MEDS: magnesium hydroxide 30 mL UDC PO (18:28)
[2021-12-26 18:41] LABS: Iron 13 ug/dL (59-158); Percent Saturation 7.7 % (20-50); Total Iron Binding Capacity 167 mcg/dl; Unsaturated Iron Binding 154 ug/dL (112-347)
[2021-12-26 18:57] LABS: Vitamin B12 1271 pg/mL (232-1245)
[2021-12-26 21:50] LABS: Glucose Point of Care 372 mg/dL (70-110)
[2021-12-26 23:26] LABS: Folate Level > 20.0 ng/mL (4.5-32.2)
[2021-12-27] VITALS (8 sets, daily range): BP systolic 132–159; BP diastolic 65–72; PULSE 66–81; RESP 15–19; TEMP 36.5–37.4; O2SAT 90–96
[2021-12-27 03:59] LABS: Basophils % 0.1 %; Eosinophils # 0.2 10^3/uL (0.0-0.8); Hematocrit 29.3 % (42.0-52.0); Hemoglobin 9.3 g/dL (11.7-16.6); Lymphocytes # 0.8 10^3/uL (0.8-4.8); Lymphocytes % 9.9 %; Mean Corpuscular HGB Conc 31.7 g/dL (30.0-36.0); Mean Corpuscular Hemoglobin 30.3 pg (28.0-34.0); Mean Corpuscular Volume 95.4 fl (80-94); Mean Platelet Volume 11.1 fL (7.4-10.4); Monocytes # 0.5 10^3/uL (0.2-0.9); Monocytes % 6.2 %; Neutrophils # 6.44 10^3/uL (1.8-7.7); Neutrophils % 81.2 %; Nucleated Red Blood Cells % 0 %; Platelet Count 151 10^3/cmm (130-400); Red Blood Count 3.07 10^6/uL (4.1-5.3); Red Cell Distribution Width 14.7 % (12.1-15.1); White Blood Count 7.9 10^3/uL (4.0-10.0)
[2021-12-27 04:29] LABS: Alanine Aminotransferase 17 U/L (0-41); Albumin Level 2.7 g/dL (3.5-5.2); Alkaline Phosphatase 77 U/L (40-130); Aspartate Amino Transferase 16 U/L (0-40); Blood Urea Nitrogen 42 mg/dL (8-23); Calcium 8.7 mg/dL (8.5-10.5); Carbon Dioxide 24 mmol/L (22-29); Chloride 106 mmol/L (98-107); Chol HDL Ratio 2.88 mg/dL (1.0-5.00); Cholesterol 92 mg/dL (0-200); Globulin 2.6 g/dL (1.3-4.6); Glucose 307 mg/dL (65-115); HDL Cholesterol 32 mg/dL (60-100); LDL Cholesterol Calculated 45 mg/dL (50-129); Magnesium 2.2 mg/dL (1.7-2.3); Osmolality Calculated 306 mOsm/kg (285-295); Phosphorus 2.2 mg/dL (2.5-4.5); Sodium 137 mmol/L (136-145); Total Bilirubin 0.5 mg/dL (0.15-1.2); Total Protein 5.3 g/dL (6.6-8.7); Triglycerides 75 mg/dL (0-150); VLDL Cholestrol Calculation 15 mg/dL (0-30)
[2021-12-27 04:31] LABS: Anion Gap 11.5 (5-19); Potassium 4.5 mmol/L (3.5-5.1)
[2021-12-27 04:36] LABS: Estmated Average Glucose 260; Hemoglobin A1C 10.7 % (4.0-6.0)
[2021-12-27] MEDS: heparin 5,000 unit/mL INJ 1 mL 5000 UNIT SUBCUT ×2 (05:11→17:42)
[2021-12-27] MEDS: sodium chloride 0.9% 1,000 ML 75 ML IV (05:12)
[2021-12-27 06:51] LABS: Glucose Point of Care 266 mg/dL (70-110)
--- NOTE | 2021-12-27 08:38 | P.PN_ITS ---
Subjective Subjective: Patient is doing much better after having a larger bowel movements yesterday and continues to have indwelling Gaffney catheter due to acute urinary retention. Maintains to have stable vital signs and no acute events overnight Vitals/I&O/Wt Last Vital Signs Temp 98.6 F 12/27/21 07:58 Pulse 68 12/27/21 07:58 Resp 18 12/27/21 07:58 BP 140/69 12/27/21 07:58 Pulse Ox 96 12/27/21 07:58 O2 Del Method 12/27/21 07:58 O2 Flow Rate 2 12/27/21 07:38 12/26/21 12/27/21 12/27/21 22:59 06:59 14:59 Intake Total 500 / 500 807.5 / 1307.5 Output Total 700 / 700 Balance -200 / -200 807.5 / 607.5 Weight last 48 hrs Weight 152 lb 4 oz Weight 160 lb Physical Exam Narrative: Patient is conscious alert oriented X3 No apparent distress BMI 25.1 Head and neck examination PERRLA no masses no cervical lymphadenopathy no jaundice Abdomen nontender except mildly at the incision site otherwise clean dry and intact and mulugeta in place and no evidence of surgical site infection nondistended soft no organomegaly guarding or rigidity/no signs of peritonitis Gaffney catheter in place Urinary Catheter Management: Coude: Cath Placed During This Visit: yes Reason for Continuing Indwelling Catheter: Acute Urinary Retention or Obstruction Urinary Catheter Date of Insertion: 12/26/21 Urinary Catheter Time of Insertion: 15:24 Data : 12/27/21 03:21 12/27/21 03:21 A&P Assessment and plan (1) Postoperative ileus: Condition resolved and can advance diet as tolerated From surgical standpoint of view patient can be discharged home on stool softeners Follow-up at surgical office as scheduled Recommend to have the indwelling catheter for 10 days and a voiding trial thereafter Gaffney catheter education and teaching Assurance and education All questions have been answered and all concerns have been addressed to patient's satisfaction. Attestations Medical Necessity Statement*: Per admitting service Coding Level of Care Code Acute Local Az Truck Driver for Zainab Rashid Diagnoses Postoperative ileus K91.89; K56.7
[2021-12-27] MEDS: psyllium powder Pkt 1 PACKET PO ×2 (08:51→17:42)
[2021-12-27] MEDS: docusate sodium 100 mg Capsule PO ×2 (08:51→17:42)
[2021-12-27] MEDS: tamsulosin 0.4 mg Capsule PO ×2 (08:51→17:42)
[2021-12-27] MEDS: pantoprazole DR 40 mg Tablet PO (08:51)
--- NOTE | 2021-12-27 10:02 | PC.NURSE ---
Patient oxygen saturation 98% on 1.5L NC, decreased oxygen to room air, oxygen saturation 97%, will continue to monitor.
--- NOTE | 2021-12-27 13:07 | P.PN_ITS ---
Subjective Subjective: Today morning seen with son at bedside. Patient states he is feeling a lot better. Able to have his meals without nausea. Had a good bowel movement last night after bowel regimen. Appropriate urine output. Renal functions trending down to baseline. Vitals/I&O/Wt Last Vital Signs Temp 97.7 F 12/27/21 12:00 Pulse 66 12/27/21 12:00 Resp 16 12/27/21 12:00 BP 159/72 12/27/21 12:00 Pulse Ox 90 12/27/21 12:00 O2 Del Method 12/27/21 12:00 O2 Flow Rate 2 12/27/21 08:00 12/26/21 12/27/21 12/27/21 22:59 06:59 14:59 Intake Total 500 / 500 807.5 / 1307.5 720 / 720 Output Total 700 / 700 Balance -200 / -200 807.5 / 607.5 720 / 720 Weight last 48 hrs Weight 69.059 kg Weight 72.575 kg Physical Exam Narrative: General: No acute distress, AO x3, HEENT: PERRLA, pupils bilaterally equal and reactive Chest: Normal vesicular breath sounds, no added sounds, equal good air entry bilaterally CVS: S1-S2 regular, no murmurs, no tachycardia, no gallops, no rubs Abdomen: Soft, nontender, no organomegaly, bowel sounds present Neuro: No focal deficits, no facial deformity, AO x3, power 5/5 in all limbs Urinary Catheter Management: Coude: Cath Placed During This Visit: yes Reason for Continuing Indwelling Catheter: Acute Urinary Retention or Obstruc tion Urinary Catheter Date of Insertion: 12/26/21 Urinary Catheter Time of Insertion: 15:24 Data : 12/27/21 03:21 12/27/21 03:21 A&P Assessment and plan (1) ANTOINETTE (acute kidney injury): ANTOINETTE secondary to urinary retention from bladder outlet obstruction. Maintain Gaffney catheterization. Recheck BMP daily for now. During hospitalization will recheck ultrasound KUB to monitor for hydronephrosis. Normal saline at 75 cc/h for now. Continue with home dose of Flomax 0.4 twice daily. Will add finasteride 5 mg daily for now. (2) Urinary retention: (3) Bladder outlet obstruction: With bilateral hydronephrosis and bilateral moderate ureterectasis without obstructing calculi. Gaffney catheterization. Most likely will be discharged with Gaffney catheterizat ion and follow-up with urology as an outpatient. (4) Postoperative ileus: Postoperative day 3. Primary surgeon consulted from the ER. Bowel regimen with milk of mag and senna Colace. Early ambulation. Full liquid diet for now. (5) CKD stage 3 secondary to diabetes: Baseline creatinine 1.3-1.5. Medical reconciliation done for nephrotoxic drugs. (6) Diabetes type 2, controlled: Hyperglycemia on presentation. Normal saline as above. Continue with home dose of glargine 20 units nightly along with sliding scale low-dose protocol for now. (7) Bilateral hydronephrosis: Plan Analgesia: Tylenol as needed hold off on [place] for now. Glycemic control: Glargine 20 units nightly, low-dose protocol insulin sliding scale Nutrition: Full liquid, carb consistent CODE STATUS: Full code PUD prophylaxis: Protonix DVT prophylaxis: Heparin 5000 every 12 hourly Discharge planning: Discharge home with caregiver once renal functions closer to baseline for trending down consistently Admit to [facility] [place] Plan for the day: Stop IV fluids. Advance to GI soft. Encourage oral intake. Continue Gaffney catheterization. Monitor BMP in AM. Continue with bowel regimen. Monitor for 24 more hours off IV fluids for renal functions. Plan for KUB ultrasound tomorrow morning. Increased to moderate dose protocol insulin sliding scale. This documentation was created by [email or web address] food trades assistants software. Every effort was made to ensure accuracy of food trades assistants. Any obvious errors or omissions should be clarified with the author of the document. Attestations Medical Necessity Statement*: Requires further hospitalization for management of resolving kidney functions in setting of obstructive uropathy, bilateral hydronephrosis, ileus in postoperative status. Time Spent in Patient Care: Greater than 35 minutes Coding Level of Care Code Acute Electric Motor Rebuilder for g Fwd Diagnoses ANTOINETTE (acute kidney injury) N17.9 Urinary retention R33.9 Bladder outlet obstruction N32.0 Postoperative ileus K91.89; K56.7 CKD stage 3 secondary to diabetes E11.22; N18.30 Diabetes type 2, controlled E11.9 Bilateral hydronephrosis N13.30
--- NOTE | 2021-12-27 16:11 | PC.NURSE ---
Patient ambulating in hallway on RA, oxygen saturation remained 93-94%. Denies shortness of breath or pain.
[2021-12-27 17:22] LABS: Glucose Point of Care 588 mg/dL (70-110)
[2021-12-27] MEDS: atorvastatin 40 mg Tablet PO (17:42)
[2021-12-27] MEDS: insulin glargine 100 units/1 mL 20 UNIT SUBCUT (17:42)
[2021-12-27] MEDS: insulin lispro 100 unit/1 mL SUBCUT ×2 (17:43→21:41)
[2021-12-27 21:30] LABS: Glucose Point of Care 401 mg/dL (70-110)
[2021-12-28 00:24] VITALS: BP 138/61; PULSE 69; RESP 17; TEMP 36.9; O2SAT 92
[2021-12-28] MEDS: acetaminophen 325 mg Tablet 650 MG PO (00:25)
[2021-12-28 04:31] VITALS: BP 121/66; PULSE 62; RESP 17; TEMP 36.4; O2SAT 95
[2021-12-28] MEDS: heparin 5,000 unit/mL INJ 1 mL 5000 UNIT SUBCUT (05:35)
[2021-12-28 06:39] LABS: Glucose Point of Care 81 mg/dL (70-110)
[2021-12-28 07:28] VITALS: BP 118/62; PULSE 60; RESP 17; TEMP 36.6; O2SAT 96
[2021-12-28] MEDS: psyllium powder Pkt 1 PACKET PO (08:59)
[2021-12-28] MEDS: pantoprazole DR 40 mg Tablet PO (08:59)
[2021-12-28] MEDS: tamsulosin 0.4 mg Capsule PO (08:59)
[2021-12-28] MEDS: docusate sodium 100 mg Capsule PO (08:59)
[2021-12-28 11:08] LABS: Glucose Point of Care 358 mg/dL (70-110)
[2021-12-28 11:33] VITALS: BP 114/67; PULSE 64; RESP 17; TEMP 36.8; O2SAT 97
[2021-12-28 11:41] LABS: Alanine Aminotransferase 29 U/L (0-41); Albumin Level 2.6 g/dL (3.5-5.2); Alkaline Phosphatase 69 U/L (40-130); Anion Gap 13.6 (5-19); Aspartate Amino Transferase 29 U/L (0-40); Blood Urea Nitrogen 34 mg/dL (8-23); Calcium 8.2 mg/dL (8.5-10.5); Carbon Dioxide 24 mmol/L (22-29); Chloride 101 mmol/L (98-107); Globulin 2.6 g/dL (1.3-4.6); Glucose 367 mg/dL (65-115); Osmolality Calculated 301 mOsm/kg (285-295); Potassium 4.6 mmol/L (3.5-5.1); Sodium 134 mmol/L (136-145); Total Bilirubin 0.3 mg/dL (0.15-1.2); Total Protein 5.2 g/dL (6.6-8.7)
--- NOTE | 2021-12-28 11:42 | USR_ITS ---
PROCEDURE INFORMATION: Exam: US Retroperitoneal; Complete; Kidneys and Bladder Exam date and time: 12/28/2021 11:54 AM Age: 86 years old Clinical indication: Condition or disease; Other: Urinary retention; Additional info: Urinary retention, needs to be done before discharge TECHNIQUE: Imaging protocol: Real-time ultrasound of the retroperitoneum with image documentation. Complete exam focused on the kidneys and bladder. COMPARISON: CT abdomen pelvis con [id number] 12/26/2021 1:46 PM FINDINGS: Right kidney: Normal. No stones. No hydronephrosis. Measure 9.7 cm x 4.4 cm x 5.5 cm Left kidney: There is a parapelvic cyst in the central collecting system 8.7 mm x 14 mm x 10 mm No stones. No hydronephrosis. Measure 12.6 cm x 3.9 cm x 5.4 cm Urinary bladder: Unremarkable. US/US renal BI* [id number] IMPRESSION: 1. Parapelvic cyst left kidney 2. Otherwise Unremarkable kidneys and bladder.
--- NOTE | 2021-12-28 12:13 | P.DS_ITS ---
Discharge Providers Date of Admission: 12/26/21 18:09 Date of Discharge: December 28, 2021 Attending Provider at Admission: Rodrigue Monroy MD Attending Provider at Discharge: Rodrigue Monroy MD Consults: Surgery: Dr. Red Primary Care Provider: Baldev Issa DO Diagnoses at Discharge Discharge Diagnosis (1) ANTOINETTE (acute kidney injury): Status: Acute (2) Urinary retention: Status: Acute (3) Bladder outlet obstruction: Status: Acute (4) Postoperative ileus: Status: Resolved (5) CKD stage 3 secondary to diabetes: Status: Acute (6) Diabetes type 2, controlled: Status: Acute (7) Bilateral hydronephrosis: Status: Acute Reason for Visit Reason for Visit: Constipation and fever Hospital Course Hospital Course Earle Curiel is a 86 year old male with past medical history of moderately severe anemia, marginal zone lymphoma, hypertension, hyperlipidemia, type 2 diabetes mellitus, benign prostatic hypertrophy who was recently in hospital on 12/23 when he underwent umbilical hernia repair with mesh.? During surgery patient was catheterized.? He comes back to the ER today because of nausea, decreased urinary output along with 1 bowel movement since discharge.? He was found to be in acute kidney injury along with urinary outlet obstruction for which Gaffney catheter was placed in the ER and more than 1000 cc of urine was evacuated.? He was also found to have bilateral hydroureteronephrosis and ileus.? He was given 5 cc of LR in the ER. On examination patient can comfortably in bed with family at bedside.? Denies any complaints other than nausea.? Did have lower back pain at home which is relieved after Gaffney catheterization.? States he has nausea because of which he is scared to eat as he believes he will have vomiting.? Has had 1 bowel movement since discharge with poor oral intake. Patient was admitted to the hospital further evaluation and management of ANTOINETTE secondary to obstructive uropathy. Gaffney catheterization was started and he was started on gentle IV hydration for dehydration. He was started on aggressive bowel regimen and his diet was advanced gradually. His primary surgeon was consulted as well. Patient responded well to the treatment and his creatinine is back to his baseline of 1.2. Patient has had multiple bowel movements and is tolerating diet well. During hospitalization he was found to have uncontrolled type 2 diabetes mellitus and hyperglycemia. His dose of glargine has been increased to 20 units twice daily. He is discharged hemodynamically stable condition with a leg bag with advised to follow-up with his primary care provider within next 1 week for repeat CMP, with Dr. Wilkins/urologist within next 1 week for a voiding trial. Prior to discharge ultrasound of bladder and kidney has been done to monitor for hydroureteronephrosis. Physical Exam Narrative: General: No acute distress, AO x3, HEENT: PERRLA, pupils bilaterally equal and reactive Chest: Normal vesicular breath sounds, no added sounds, equal good air entry bilaterally CVS: S1-S2 regular, no murmurs, no tachycardia, no gallops, no rubs Abdomen: Soft, nontender, no organomegaly, bowel sounds present Neuro: No focal deficits, no facial deformity, AO x3, power 5/5 in all limbs Urinary Catheter Management: Coude: Cath Placed During This Visit: yes Reason for Continuing Indwelling Catheter: Acute Urinary Retention or Obstruc tion Urinary Catheter Date of Insertion: 12/26/21 Urinary Catheter Time of Insertion: 15:24 Discharge Data Studies Completed and Pending Completed Studies During Hospitalization Category Date Time Status CT abdomen pelvis con [id number] Stat Cat Scan 12/26/21 13:32 Completed Pending at discharge Category Date Time Status US renal BI with PV bladder Routine Ultrasound 12/28/21 11:42 Ordered Radiology Impressions Abdomen/Pelvis CT 12/26/21 13:32 IMPRESSION: 1. Recent postoperative day 3 umbilical hernia repair with air and fluid at the surgical corridor in the subcutaneous soft tissues. This is likely benign postoperative fluid considering recent postoperative status. Recommend correlation for infection and overlying cellulitis. 2. Moderate bilateral hydronephrosis with bilateral moderate ureterectasis. No obstructing calculi. 3. Markedly enlarged prostate appears progressed compared to the previous examinations suspicious for neoplasia with markedly distended urinary bladder consistent with bladder outlet obstruction. Correlation PSA. 4. Obstructive hydronephrosis likely due to obstruction at the level of the UVJ due to markedly enlarged prostate versus bladder outlet obstruction. This can be followed up after bladder drainage. 5. Moderate esophageal hiatal hernia. 6. Compressive atelectasis RIGHT lower lobe and RIGHT middle lobe. Trace pleural fluid. 7. Postoperative ileus involving the transverse colon. Notified Jeanmarie Hamilton MD at 12/26/2021 2:16 PM. Laboratory Results WBC 7.9 10^3/uL (4.0-10.0) 12/27/21 03:21 RBC 3.07 10^6/uL (4.1-5.3) L 12/27/21 03:21 Hgb 9.3 g/dL (11.7-16.6) L 12/27/21 03:21 Hct 29.3 % (42.0-52.0) L 12/27/21 03:21 MCV 95.4 fl (80-94) H 12/27/21 03:21 MCH 30.3 pg (28.0-34.0) 12/27/21 03:21 MCHC 31.7 g/dL (30.0-36.0) 12/27/21 03:21 RDW 14.7 % (12.1-15.1) 12/27/21 03:21 Plt Count 151 10^3/cmm (130-400) 12/27/21 03:21 MPV 11.1 fL (7.4-10.4) H 12/27/21 03:21 Neut % (Auto) 81.2 % 12/27/21 03:21 Lymph % (Auto) 9.9 % 12/27/21 03:21 [place] % (Auto) 6.2 % 12/27/21 03:21 Eos % (Auto) 2.0 % 12/27/21 03:21 Baso % (Auto) 0.1 % 12/27/21 03:21 Neut # (Auto) 6.44 10^3/uL (1.8-7.7) 12/27/21 03:21 Lymph # (Auto) 0.8 10^3/uL (0.8-4.8) 12/27/21 03:21 [place] # (Auto) 0.5 10^3/uL (0.2-0.9) 12/27/21 03:21 Eos # (Auto) 0.2 10^3/uL (0.0-0.8) 12/27/21 03:21 Baso # (Auto) 0.0 10^3/uL (0.0-0.1) 12/27/21 03:21 Nucleated RBC % (auto) 0 % 12/27/21 03:21 Nucleated RBCs # 0.0 /100WBC 12/27/21 03:21 Sodium 134 mmol/L (136-145) L 12/28/21 11:10 Potassium 4.6 mmol/L (3.5-5.1) 12/28/21 11:10 Chloride 101 mmol/L (98-107) 12/28/21 11:10 Carbon Dioxide 24 mmol/L (22-29) 12/28/21 11:10 Anion Gap 13.6 (5-19) 12/28/21 11:10 BUN 34 mg/dL (8-23) H 12/28/21 11:10 Creatinine 1.2 mg/dL (0.7-1.2) 12/28/21 11:10 GFR Calculation Not Reportable 12/28/21 11:10 Glucose 367 mg/dL (65-115) H 12/28/21 11:10 POC Glucose 358 mg/dL (70-110) H 12/28/21 10:55 Estimat Average Glucose 260 12/27/21 03:21 Hemoglobin A1c 10.7 % (4.0-6.0) H 12/27/21 03:21 Calculated Osmolality 301 mOsm/kg (285-295) H 12/28/21 11:10 Lactate 1.4 mmol/L (0.5-2.2) 12/26/21 13:45 Calcium 8.2 mg/dL (8.5-10.5) L 12/28/21 11:10 Phosphorus 2.2 mg/dL (2.5-4.5) L 12/27/21 03:21 Magnesium 2.2 mg/dL (1.7-2.3) 12/27/21 03:21 Iron 13 ug/dL (59-158) L 12/26/21 13:45 TIBC 167 mcg/dl 12/26/21 13:45 % Saturation 7.7 % (20-50) L 12/26/21 13:45 Unsat Iron Binding 154 ug/dL (112-347) 12/26/21 13:45 Total Bilirubin 0.3 mg/dL (0.15-1.2) 12/28/21 11:10 AST 29 U/L (0-40) 12/28/21 11:10 ALT 29 U/L (0-41) 12/28/21 11:10 Alkaline Phosphatase 69 U/L (40-130) 12/28/21 11:10 Total Protein 5.2 g/dL (6.6-8.7) L 12/28/21 11:10 Albumin 2.6 g/dL (3.5-5.2) L 12/28/21 11:10 Globulin 2.6 g/dL (1.3-4.6) 12/28/21 11:10 Triglycerides 75 mg/dL (0-150) 12/27/21 03:21 Cholesterol 92 mg/dL (0-200) 12/27/21 03:21 LDL Cholesterol, Calc 45 mg/dL (50-129) L 12/27/21 03:21 Total VLDL Cholesterol 15 mg/dL (0-30) 12/27/21 03:21 HDL Cholesterol 32 mg/dL (60-100) L 12/27/21 03:21 Cholesterol/HDL Ratio 2.88 mg/dL (1.0-5.00) 12/27/21 03:21 Lipase 6 U/L (13-60) L 12/26/21 13:45 Vitamin B12 1271 pg/mL (232-1245) H 12/26/21 13:45 Folate > 20.0 ng/mL (4.5-32.2) 12/26/21 19:01 TSH 0.92 uIU/mL (0.27-4.20) 12/26/21 13:45 Urine Color Yellow (Yellow) 12/26/21 15:22 Urine Appearance Clear (CLEAR) 12/26/21 15:22 Urine pH 5 (5-7) 12/26/21 15:22 Ur Specific [place] 1.010 (1.005-1.030) 12/26/21 15:22 Urine Protein Neg (Negative) 12/26/21 15:22 Urine Glucose (UA) 4+ (Normal) H 12/26/21 15:22 Urine Ketones Negative (Negative) 12/26/21 15:22 Urine Blood 2+ (Negative) H 12/26/21 15:22 Urine Nitrate Negative (Negative) 12/26/21 15:22 Urine Bilirubin Neg (Negative) 12/26/21 15:22 Urine Urobilinogen Neg mg/dL (Negative) 12/26/21 15:22 Ur Leukocyte Esterase Negative (Negative) 12/26/21 15:22 Urine RBC 0-4 /hpf (0-2) H 12/26/21 15:22 Urine WBC 0-4 /hpf (0-5) H 12/26/21 15:22 Ur Squamous Epith Cells None /hpf (0-5) 12/26/21 15:22 Amorphous Sediment Not Reportable 12/26/21 15:22 Urine Bacteria None /hpf (NONE) 12/26/21 15:22 Vitals Last Vital Signs Temp 98.2 F 12/28/21 11:33 Pulse 64 12/28/21 11:33 Resp 17 12/28/21 11:33 BP 114/67 12/28/21 11:33 Pulse Ox 97 12/28/21 11:33 O2 Del Method 12/28/21 11:33 O2 Flow Rate 2 12/27/21 08:00 Discharge Plan Discharge Patient Disposition: Home Condition: Stable Prescriptions: New Metamucil (with sugar) 3.4 gram Powder In Packet 1 packet PO BID PRN (Reason: Constipation) Qty: 14 0RF Continued multivitamin Tablet 1 tab PO DAILY tamsulosin 0.4 mg capsule 0.4 mg PO BID Qty: 180 3RF cholecalciferol (vitamin D3) 25 mcg (1,000 unit) capsule 25 mcg PO DAILY (DME) FreeStyle Mandeep 2 [place] Misc See Rx Instructions .Route Qty: 1 0RF Rx Instructions: Check 4 - 6 times a day. (DME) FreeStyle Mandeep 2 Sensor Kit See Rx Instructions .Route Qty: 8 3RF Rx Instructions: Change every 14 days. (DME) pen needle, diabetic [Comfort EZ Pen [place]] 33 gauge x 5/32 needle See Rx Instructions .Route Qty: 100 3RF Rx Instructions: As directed insulin aspart U-100 [Novolog Flexpen U-100 Insulin] 100 unit/mL (3 mL) insulin pen 5 unit SUBCUT TID Qty: 15 3RF Rx Instructions: Inject 5 units subcut three times a day with meals. lactulose 10 gram/15 mL solution 30 ml PO Q6H PRN (Reason: constipation) 3 Days Qty: 360 0RF cyanocobalamin (vitamin B-12) [B-12 DOTS] 500 mcg Tablet 1,000 mcg PO DAILY pantoprazole [Protonix] 40 mg Tablet,Delayed Release (Dr/Ec) 40 mg PO DAILY hydrocodone-acetaminophen 5-325 mg tablet 1 tab PO Q6H PRN (Reason: Pain) simvastatin 80 mg Tablet 40 mg PO QPM Changed insulin glargine 100 unit/mL Solution 20 unit SUBCUT BID Qty: 30 0RF Discharge Orders: Discharge Order (Routine); Ordered 12/28/21 Ordered By: Rodrigue Monroy Referrals: Manjeet Red MD [Physician] - (Return to surgery office as scheduled) Baldev Issa DO [Primary Care Provider] - 2 weeks Miguel Wilkins MD [Physician] - 7-10 days Discharge Diet: Advance as tolerated Discharge Activity: Limit activity as instructed Patient Instructions: Opioid Safety Activity Restrictions/Additional Instructions: 1. Patient can shower after 48 hours from surgery 2. Avoid constipation 3. Up and walking as tolerated 4. Do not lift more than 5 pounds first 2 weeks after surgery and not more than 25 pounds 6 to 8 weeks after surgery. 5. Do not operate heavy machinery or drive while using pain medications. 6.Contact the office or return to the ER for worsening nausea vomiting fevers or chills, or noticing any redness around incision sites or discharge. Please follow-up with urology within the next 2 weeks. Gaffney catheter will remain till the time you follow-up with urology. Voiding trial to be done at urology office. Take Metamucil as needed for constipation. Dose of glargine has been increased to 20 units twice daily. Please check your blood sugar daily and maintain a blood sugar diary and follow-up with a primary care provider as an outpatient for further evaluation and management of uncontrolled diabetes. Discharge Attestations Time Spent in Discharge Care*: greater than 30 min Specific Discharge Activities: educating patient, educating and/or supporting family/caregiver, discussing with pcp/other providers, discussing with returned case inspector/social workers/dc planners, documenting/other paperwork and evaluating patient/reviewing data Status at Discharge: Cognitive status at discharge: cognitively intact , Behavioral status at discharge: cooperative , Functional status at discharge: independent ambulation , Overall status at discharge: patient is back to baseline Quality Metrics Clinical Quality Measures [ No reported AMI, CVA or VTE this stay] Coding Level of Care Code Acute Chg FW DC note History Comprehensive Exam Comprehensive Medical Decision Making High Complexity Diagnoses ANTOINETTE (acute kidney injury) N17.9 Urinary retention R33.9 Bladder outlet obstruction N32.0 Postoperative ileus K91.89; K56.7 CKD stage 3 secondary to diabetes E11.22; N18.30 Diabetes type 2, controlled E11.9 Bilateral hydronephrosis N13.30
[2021-12-28] MEDS: insulin lispro 100 unit/1 mL SUBCUT (12:33)
--- NOTE | 2021-12-28 14:03 | PC.NURSE ---
Education provided to patient and son regarding discharge instructions and sims catheter leg bag care. Patient and son verbalized understanding.
[2021-12-28 14:28] VITALS: BP 114/67; PULSE 64; RESP 17; TEMP 36.8; O2SAT 97
== END 2021-12-28 14:29 | disposition home or self-care (01) | DRG 683 ==
LOC: ER 15:51 → MEDSURG 17:59
PROVIDERS: Admitting Provider Student in an Organized Health Care Education/Training Program; Emergency Provider Emergency Medicine; PCP Emergency Medicine Emergency Medical Services; Visit Provider Student in an Organized Health Care Education/Training Program
DX: N17.9 Acute kidney failure, unspecified (principal); C88.4 Extranodal marginal zone B-cell lymphoma of mucosa-associated lymphoid tissue [MALT-lymphoma]; K91.89 Other postprocedural complications and disorders of digestive system; K56.7 Ileus, unspecified; N13.30 Unspecified hydronephrosis; Y83.8 Other surgical procedures as the cause of abnormal reaction of the patient, or of later complication, without mention of misadventure at the time of the procedure; N32.0 Bladder-neck obstruction; N40.1 Benign prostatic hyperplasia with lower urinary tract symptoms; R33.8 Other retention of urine; E11.22 Type 2 diabetes mellitus with diabetic chronic kidney disease; I12.9 Hypertensive chronic kidney disease with stage 1 through stage 4 chronic kidney disease, or unspecified chronic kidney disease; N18.30 Chronic kidney disease, stage 3 unspecified; D63.1 Anemia in chronic kidney disease; E86.0 Dehydration; E11.65 Type 2 diabetes mellitus with hyperglycemia; E78.5 Hyperlipidemia, unspecified; K21.9 Gastro-esophageal reflux disease without esophagitis; Z98.890 Other specified postprocedural states; Z79.4 Long term (current) use of insulin
CPT/HCPCS: 36415; 36416; 51702; 74176; 76770; 80053; 80061; 81001; 82607; 82746; 82962; 83036; 83540; 83550; 83605; 83690; 83735; 84100; 84443; 85025; 96372; 96374; 99285; J1644; J1815; J7030

== ENCOUNTER 2021-12-29 05:32 | Emergency (ER) | payer OTHER, SELFPAY ==
[2021-12-29 05:35] VITALS: BP 142/80; PULSE 92; RESP 17; TEMP 36.9; O2SAT 95; BMI 25.0
--- NOTE | 2021-12-29 05:48 | PC.NURSE ---
Bladder scan resulted [id number]
--- NOTE | 2021-12-29 05:49 | W.ED.MALEGU ---
HPI - Male Genitourinary General: Chief complaint: Urogenital-Male Stated complaint: not able to void, post op surgery Time Seen by Provider: 12/29/21 05:44 Source: patient Mode of arrival: ambulatory History of Present Illness: 86-year-old male returns emergency room with complaints of no urinary output. On 12/23/2021 patient underwent open umbilical hernia repair return to the emergency room on 12/26 and was admitted with urinary retention and acute kidney injury. CT was done showed retained stool hydronephrosis and hydroureter. Follow-up ultrasound showed resolution of hydroureter and hydronephrosis. Patient has underlying chronic kidney disease. At the time of admission his creatinine was up to 3.3 at the time by the time of discharge she was down to 1.2. His urine at the time of admission was negative. He has not had any complications directly from the surgery. He returns today he has a Gaffney catheter in place with a leg bag and has had no output for the last 12 hours. He has a palpable bladder extending to his umbilical surgical scar. No flank pain does have a lot of suprapubic discomfort bladder scan confirms urinary retention Onset (ago): hour(s) (12) Duration: constant Location: abdomen Severity: moderate Quality: aching Relieving factors: none Exacerbating factors: palpation Context: recent surgery Associated symptoms: Reports urinary retention; Deny discharge, dysuria, fevers/chills, hematuria, nausea, rash, swelling, urinary incontinence, mass or vomiting Review of Systems Const: Denies: fever(s), chills, body aches, change in appetite, fatigue or malaise ENMT: Denies: throat pain, ear or mastoid pain, nasal discharge or nasal congestion Card: Denies: chest pain, palpitations, edema, dyspnea on exertion or orthopnea Resp: Denies: dyspnea, productive cough or non-productive cough GI: Denies: abdominal pain, nausea or vomiting : Reports: difficulty urinating; Denies: flank pain, dysuria, urinary frequency, urinary urgency, urinary incontinence or hematuria Musc: Denies: neck pain or back pain Skin/Breast: Denies: rash or pruritus PFSH ED PFSH: Medical History Anemia 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 Diabetes type 2, controlled 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] GERD (gastroesophageal reflux disease) Hyperlipidemia associated with type 2 diabetes mellitus Hypertension Tick fever Type 2 diabetes mellitus Surgical History History of bone marrow biopsy (06/08/19) Bone marrow aspiration and biopsy Hx of colonoscopy Hx of esophagogastroduodenoscopy (07/28/17) EGD and colonoscopy Hx of esophagogastroduodenoscopy (02/22/18) Family History Mother Diabetes Father Cancer Other Hypertension Denies family history of CAD (coronary artery disease) Clotting disorder Dementia Hyperlipidemia Psychiatric illness Chronic kidney disease (CKD) Suicide Anesthesia complication Bleeding disorder Lung disease Stroke Social History Smoking and tobacco status: never smoked Alcohol intake: never Marital status: / Current occupational status: retired History of recent travel: No Physical Exam Const: COMMON NORMALS: no acute distress GENERAL APPEARANCE: cooperative and comfortable ORIENTATION/CONSCIOUSNESS: Yes awake, Yes oriented to person, Yes oriented to place and Yes oriented to time HENMT: COMMON NORMALS: normocephalic, atraumatic and hearing grossly normal bilaterally HEAD & SCALP: normocephalic and atraumatic Resp: COMMON NORMALS: normal respiratory effort, No retractions, No use of accessory muscles and clear to auscultation bilaterally AUSCULTATION: clear to auscultation bilaterally Cardio: COMMON NORMALS: regular rate, regular rhythm and No murmurs present (Cardio) RATE: regular rate RHYTHM: regular rhythm GI: COMMON NORMALS: No hepatosplenomegaly present AUSCULTATION: Yes normoactive bowel sounds PALPATION: Yes Tenderness to palpation present (GI) (Suprapubic), No Guarding due to palpation present (GI) and Yes No hepatosplenomegaly present OTHER: Bladder palpable to the level of the umbilical hernia incision. Moderately tender. Surgical incision has mulugeta in place there is some ecchymosis to the abdominal wall surrounding wound but there is no evidence of wound breakdown dehiscence induration infection or drainage. Extremity: COMMON NORMALS: normal to inspection, capillary refill normal, no clubbing, cyanosis or edema, no calf tenderness and no pedal edema Neuro: SENSORIUM/ORIENTATION: Yes oriented to person, Yes oriented to place and Yes oriented to time Skin: COMMON NORMALS: no rashes or lesions noted GENERAL SKIN EXAM: no rashes or lesions noted Course Vital Signs: Vital signs: Vital Signs Temperature 98.4 F 12/29/21 05:35 Pulse Rate 79 12/29/21 07:02 Respiratory Rate 17 12/29/21 07:02 Blood Pressure 148/78 12/29/21 07:02 Pulse Oximetry 98 12/29/21 07:02 Oxygen Delivery Me thod 12/29/21 05:35 MDM - Male Medical Decision Making Gaffney irrigated was able to drain bladder. No changes medication follow-up with Dr. Wilkins return if has problems. Creatinine still stable. Medical Records I reviewed the patient's medical records. Lab Data I reviewed the patient's lab results. : 12/29/21 05:55 Laboratory Results Sodium 135 mmol/L (136-145) L 12/29/21 05:55 Potassium 4.2 mmol/L (3.5-5.1) 12/29/21 05:55 Chloride 102 mmol/L (98-107) 12/29/21 05:55 Carbon Dioxide 22 mmol/L (22-29) 12/29/21 05:55 Anion Gap 15.2 (5-19) 12/29/21 05:55 BUN 36 mg/dL (8-23) H 12/29/21 05:55 Creatinine 1.4 mg/dL (0.7-1.2) H 12/29/21 05:55 GFR Calculation Not Reportable 12/29/21 05:55 Glucose 421 mg/dL (65-115) H 12/29/21 05:55 Calculated Osmolality 306 mOsm/kg (285-295) H 12/29/21 05:55 Calcium 8.4 mg/dL (8.5-10.5) L 12/29/21 05:55 Urine Color Yellow (Yellow) 12/29/21 06:00 Urine Appearance Clear (CLEAR) 12/29/21 06:00 Urine pH 5 (5-7) 12/29/21 06:00 Ur Specific [place] 1.010 (1.005-1.030) 12/29/21 06:00 Urine Protein Neg (Negative) 12/29/21 06:00 Urine Glucose (UA) 2+ (Normal) H 12/29/21 06:00 Urine Ketones Negative (Negative) 12/29/21 06:00 Urine Blood 3+ (Negative) H 12/29/21 06:00 Urine Nitrate Negative (Negative) 12/29/21 06:00 Urine Bilirubin Neg (Negative) 12/29/21 06:00 Urine Urobilinogen Neg mg/dL (Negative) 12/29/21 06:00 Ur Leukocyte Esterase Trace (Negative) H 12/29/21 06:00 Urine RBC 5-10 /hpf (0-2) H 12/29/21 06:00 Urine WBC 5-10 /hpf (0-5) H 12/29/21 06:00 Ur Squamous Epith Cells 0-4 /hpf (0-5) H 12/29/21 06:00 Amorphous Sediment Not Reportable 12/29/21 06:00 Urine Bacteria Trace /hpf (NONE) 12/29/21 06:00 Urine Mucus Trace /hpf 12/29/21 06:00 Urine Yeast 2+ /hpf H 12/29/21 06:00 Discharge Plan Discharge Patient Disposition: Home Clinical Impression: Urinary retention, Anemia, Bladder outlet obstruction, CKD stage 3 secondary to diabetes, Complication of Gaffney catheter Condition: Stable Prescriptions: No Action multivitamin Tablet 1 tab PO DAILY tamsulosin 0.4 mg capsule 0.4 mg PO BID Qty: 180 3RF cholecalciferol (vitamin D3) 25 mcg (1,000 unit) capsule 25 mcg PO DAILY (DME) [facility] See Rx Instructions .Route Qty: 1 0RF Rx Instructions: Check 4 - 6 times a day. (DME) FreeStyle Mandeep 2 Sensor Kit See Rx Instructions .Route Qty: 8 3RF Rx Instructions: Change every 14 days. (DME) pen needle, diabetic [Comfort EZ Pen [place]] 33 gauge x 5/32 needle See Rx Instructions .Route Qty: 100 3RF Rx Instructions: As directed insulin aspart U-100 [Novolog Flexpen U-100 Insulin] 100 unit/mL (3 mL) insulin pen 5 unit SUBCUT TID Qty: 15 3RF Rx Instructions: Inject 5 units subcut three times a day with meals. lactulose 10 gram/15 mL solution 30 ml PO Q6H PRN (Reason: constipation) 3 Days Qty: 360 0RF cyanocobalamin (vitamin B-12) [B-12 DOTS] 500 mcg Tablet 1,000 mcg PO DAILY pantoprazole [Protonix] 40 mg Tablet,Delayed Release (Dr/Ec) 40 mg PO DAILY hydrocodone-acetaminophen 5-325 mg tablet 1 tab PO Q6H PRN (Reason: Pain) simvastatin 80 mg Tablet 40 mg PO QPM Metamucil (with sugar) 3.4 gram Powder In Packet 1 packet PO BID PRN (Reason: Constipation) Qty: 14 0RF insulin glargine 100 unit/mL Solution 20 unit SUBCUT BID Qty: 30 0RF Discharge Orders: Discharge ED (Routine); Ordered 12/29/21 Ordered By: Nasir Porras Referrals: Baldev Issa DO [Primary Care Provider] - Patient Instructions: Opioid Safety, Pain Management Activity Restrictions/Additional Instructions: Continue all current medications. Monitor Gaffney for regular output. Return to emergency room if output decreases or stops. Follow-up with Dr. Wilkins as scheduled. Coding Level of Care Code ED Allergist/Immunologist Physician for Chg Fwd Exam Detailed
[2021-12-29 06:13] LABS: Urine Appearance Clear (CLEAR); Urine Color Yellow (Yellow); pH Urine 5 (5-7)
[2021-12-29 06:14] LABS: Add Urine Culture? Yes; Add Urine Microscopic? YES; Bacteria Urine TRACE /hpf; Bilirubin Urine Neg (Negative); Blood Urine 3+ (Negative); Glucose Urine UA 2+ (Normal); Ketones Urine Negative (Negative); Leukocyte Esterase Urine Trace (Negative); Mucus Urine TRACE /hpf; Nitrate Urine Negative (Negative); Protein Urine Neg (Negative); Squamous Epithelial Cell Urine 0-4 /hpf (0-5); Urobilinogen Urine Neg (Negative)
[2021-12-29 06:28] LABS: Anion Gap 15.2 (5-19); Blood Urea Nitrogen 36 mg/dL (8-23); Calcium 8.4 mg/dL (8.5-10.5); Carbon Dioxide 22 mmol/L (22-29); Chloride 102 mmol/L (98-107); Glucose 421 mg/dL (65-115); Osmolality Calculated 306 mOsm/kg (285-295); Potassium 4.2 mmol/L (3.5-5.1); Sodium 135 mmol/L (136-145)
[2021-12-29 06:30] LABS: Creatinine Clr Calc Pharmacy 38.1611
[2021-12-29 07:02] VITALS: BP 148/78; PULSE 79; RESP 17; O2SAT 98
== END 2021-12-29 07:00 | disposition home or self-care (01) ==
PROVIDERS: Emergency Provider Family Medicine; PCP Emergency Medicine Emergency Medical Services
DX: T83.098A Other mechanical complication of other urinary catheter, initial encounter (principal); R33.9 Retention of urine, unspecified; N32.0 Bladder-neck obstruction; I12.9 Hypertensive chronic kidney disease with stage 1 through stage 4 chronic kidney disease, or unspecified chronic kidney disease; E11.22 Type 2 diabetes mellitus with diabetic chronic kidney disease; N18.30 Chronic kidney disease, stage 3 unspecified; D64.9 Anemia, unspecified; E78.5 Hyperlipidemia, unspecified; Z79.4 Long term (current) use of insulin; Z98.890 Other specified postprocedural states; Y83.8 Other surgical procedures as the cause of abnormal reaction of the patient, or of later complication, without mention of misadventure at the time of the procedure
CPT/HCPCS: 51700; 80048; 81001; 87086; 87106; 99283

== ENCOUNTER → 2022-01-07 15:05 | Outpatient (BNVA) | payer OTHER, SELFPAY | PROVIDERS: PCP Emergency Medicine Emergency Medical Services; Visit Provider Surgery | DX: Z09 Encounter for follow-up examination after completed treatment for conditions other than malignant neoplasm (principal) | CPT/HCPCS: 99024 ==

== ENCOUNTER 2022-03-23 12:28 | Oncology outpatient (recurring) (ONCR) | payer OTHER, SELFPAY ==
--- NOTE | 2022-03-23 13:19 | XR_ITS ---
WS: [id number] Exam: XR chest 2V* [id number] Date/Time of Exam: 03/23/2022 1:19 PM Reason For Exam: Left rib pain post fall Comparison 07/25/2017. There are areas of plaque atelectasis in the right lower lobe. The lungs are fully expanded and other gar clear. Normal cardiomediastinal silhouette for technique. Bony structures are intact as visualiz ed. XR/XR chest 2V* [id number] IMPRESSION: 1. Areas of plaque atelectasis in the right base. No acute process noted.
--- NOTE | 2022-03-23 13:19 | XR_ITS ---
WS: [id number] Exam: XR ribs LT 2V* [id number] Date/Time of Exam: 03/23/2022 1:19 PM Reason For Exam: Left rib pain post fall There are fractures of the anterior lateral left seventh and eighth ribs near the costochondral junct ions. No other fractures. The left lung is fully expanded and clear. XR/XR ribs LT 2V* [id number] IMPRESSION: 1. Fractures of the anterior lateral left seventh and eighth ribs near the cost ochondral cartilages. No other rib fractures are seen. 2. No pneumothorax.
== END 2022-04-04 23:59 | disposition home or self-care (01) ==
PROVIDERS: PCP Emergency Medicine Emergency Medical Services; Visit Provider Internal Medicine Medical Oncology
DX: Z08 Encounter for follow-up examination after completed treatment for malignant neoplasm (principal); Z85.72 Personal history of non-Hodgkin lymphomas; R07.81 Pleurodynia; D64.9 Anemia, unspecified; Z92.21 Personal history of antineoplastic chemotherapy; Z92.3 Personal history of irradiation
CPT/HCPCS: 71046; 71100; 99214

== ENCOUNTER → 2022-03-24 14:52 | Outpatient (BNVA) | payer OTHER, SELFPAY | PROVIDERS: PCP Emergency Medicine Emergency Medical Services; Visit Provider Internal Medicine | DX: E11.649 Type 2 diabetes mellitus with hypoglycemia without coma (principal); E11.69 Type 2 diabetes mellitus with other specified complication; E11.22 Type 2 diabetes mellitus with diabetic chronic kidney disease; N18.30 Chronic kidney disease, stage 3 unspecified; E78.5 Hyperlipidemia, unspecified; E16.0 Drug-induced hypoglycemia without coma; T38.3X5A Adverse effect of insulin and oral hypoglycemic [antidiabetic] drugs, initial encounter; Z71.3 Dietary counseling and surveillance; Z79.4 Long term (current) use of insulin | CPT/HCPCS: 99214 ==

== ENCOUNTER 2022-05-08 16:52 | Outpatient (CLI) | payer OTHER, SELFPAY ==
[2022-05-08 17:42] LABS: Basophils % 0.2 %; Eosinophils # 0.1 10^3/uL (0.0-0.8); Eosinophils % 2.5 %; Hematocrit 34.1 % (42.0-52.0); Hemoglobin 10.6 g/dL (11.7-16.6); Lymphocytes # 1.1 10^3/uL (0.8-4.8); Mean Corpuscular HGB Conc 31.1 g/dL (30.0-36.0); Mean Corpuscular Hemoglobin 27.7 pg (28.0-34.0); Mean Platelet Volume 10.3 fL (7.4-10.4); Monocytes # 0.5 10^3/uL (0.2-0.9); Monocytes % 9.9 %; Neutrophils # 2.98 10^3/uL (1.8-7.7); Neutrophils % 62.8 %; Nucleated Red Blood Cells % 0 %; Platelet Count 246 10^3/cmm (130-400); Red Blood Count 3.83 10^6/uL (4.1-5.3); Red Cell Distribution Width 19.6 % (12.1-15.1); White Blood Count 4.8 10^3/uL (4.0-10.0)
[2022-05-08 18:30] LABS: Albumin Level 3.8 g/dL (3.5-5.2); Anion Gap 16.8 (5-19); Blood Urea Nitrogen 33 mg/dL (8-23); Calcium 9.2 mg/dL (8.5-10.5); Carbon Dioxide 23 mmol/L (22-29); Chloride 103 mmol/L (98-107); Glucose 402 mg/dL (65-115); Phosphorus 3.6 mg/dL (2.5-4.5); Potassium 4.8 mmol/L (3.5-5.1); Sodium 138 mmol/L (136-145)
[2022-05-08 18:37] LABS: Parathyroid Hormone 48.2 pg/mL (15-65)
== END 2022-05-08 16:53 | disposition home or self-care (01) ==
PROVIDERS: PCP Emergency Medicine Emergency Medical Services; Visit Provider Registered Nurse
DX: N18.31 Chronic kidney disease, stage 3a (principal)
CPT/HCPCS: 36415; 80069; 82310; 83970; 85025; 99213

== ENCOUNTER → 2022-05-20 11:08 | Outpatient (BNVA) | payer OTHER, SELFPAY | PROVIDERS: PCP Emergency Medicine Emergency Medical Services; Visit Provider Internal Medicine | DX: E11.69 Type 2 diabetes mellitus with other specified complication (principal); E11.22 Type 2 diabetes mellitus with diabetic chronic kidney disease; E11.649 Type 2 diabetes mellitus with hypoglycemia without coma; N18.30 Chronic kidney disease, stage 3 unspecified; E16.0 Drug-induced hypoglycemia without coma; T38.3X5A Adverse effect of insulin and oral hypoglycemic [antidiabetic] drugs, initial encounter; E78.5 Hyperlipidemia, unspecified; M81.0 Age-related osteoporosis without current pathological fracture; Z71.3 Dietary counseling and surveillance; Z79.4 Long term (current) use of insulin | CPT/HCPCS: 82044; 99214 ==

== ENCOUNTER 2022-06-06 10:38 | Emergency (ER) | payer OTHER, SELFPAY ==
--- NOTE | 2022-06-06 11:01 | XRR_ITS ---
PROCEDURE INFORMATION: Exam: XR Chest Exam date and time: 06/06/2022 11:09 AM Age: 86 years old Clinical indication: Fever; Additional info: Covid symptoms TECHNIQUE: Imaging protocol: Radiologic exam of the chest. Views: 1 view. COMPARISON: CR XR chest 2V* [id number] 03/23/2022 1:27 PM FINDINGS: Lungs: The lung parenchyma is clear. Pleural spaces: No pneumothorax. No pleural effusion. Heart/Mediastinum: The heart is enlarged for size, similar to prior exam. Bones/joints: Unremarkable. XR/XR chest 1V portable [id number] IMPRESSION: 1. No significant airspace consolidation concerning for pneumonia. 2. Stable cardiomegaly.
[2022-06-06 11:02] VITALS: BP 138/74; PULSE 88; RESP 16; TEMP 36.9; O2SAT 96
--- NOTE | 2022-06-06 11:06 | W.ED.COVID ---
HPI - COVID General: Chief Complaint: COVID symptoms Stated Complaint: Covid Exposure, Symptoms Time Seen by Provider: 06/06/22 11:04 History of Present Illness: Patient is a 86-year-old male comes to the ED with upper respiratory symptoms. Patient visited his daughter in assisted living on Wednesday and she tested positive for COVID on Wednesday. His symptoms started this . He reports subjective fever, chills, nasal congestion and drainage, mild nonproductive cough, sore throat, headache and fatigue. He has had just a couple episodes of loose stool over the past several days. He is able to tolerate p.o. food and fluids. Denies any other symptoms. COVID 19 common symptoms: positive fever(s), chills, non-productive cough, fatigue, headache(s), throat pain and nasal congestion; negative productive cough, dyspnea, nausea, vomiting or diarrhea COVID 19 other sytmptoms: negative chest pain COVID Results: SARS-CoV-2 Antigen (Rapid) positive (Negative) 06/06/22 11:12 Review of Systems Const: Reports: fever(s), chills and fatigue Eyes: Denies: change in vision or eye discomfort ENMT: Reports: throat pain, nasal discharge and nasal congestion; Denies: odynophagia Card: Denies: chest pain, palpitations, edema, swelling of feet/ankles, dyspnea on exertion or orthopnea Resp: Reports: non-productive cough; Denies: dyspnea or productive cough GI: Denies: abdominal pain, nausea, vomiting, diarrhea, constipation or hematochezia : Denies: flank pain, difficulty urinating, dysuria or hematuria Musc: Denies: neck pain, back pain or extremity swelling Skin/Breast: Denies: rash or new lesions Neuro: Reports: headache(s); Denies: numbness in extremities or weakness in extremities PFSH ED PFSH: Medical History Anemia 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 Diabetes type 2, controlled 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] GERD (gastroesophageal reflux disease) Hyperlipidemia associated with type 2 diabetes mellitus Hypertension Postoperative ileus Tick fever Type 2 diabetes mellitus Surgical History History of bone marrow biopsy (06/08/19) Bone marrow aspiration and biopsy Hx of colonoscopy Hx of esophagogastroduodenoscopy (07/28/17) EGD and colonoscopy Hx of esophagogastroduodenoscopy (02/22/18) Family History Mother Diabetes Father Cancer Other Hypertension Denies family history of CAD (coronary artery disease) Clotting disorder Dementia Hyperlipidemia Psychiatric illness Chronic kidney disease (CKD) Suicide Anesthesia complication Bleeding disorder Lung disease Stroke Social History Smoking and tobacco status: never smoked Alcohol intake: never Marital status: / Current occupational status: retired Physical Exam Const: COMMON NORMALS: no acute distress, patient oriented x3 and alert GENERAL APPEARANCE: cooperative and comfortable HENMT: COMMON NORMALS: normocephalic HEAD & SCALP: normocephalic MOUTH: Normal oral and palatal mucosa present THROAT: posterior oropharynx normal and uvula midline Neck/C-Spine: COMMON NORMALS: supple GENERAL: Yes normal visual inspection Resp: COMMON NORMALS: normal respiratory effort, No retractions, No use of accessory muscles and clear to auscultation bilaterally AUSCULTATION: clear to auscultation bilaterally Cardio: COMMON NORMALS: regular rate, regular rhythm, S1 normal heart sound present, S2 normal heart sound present, No gallops present (Cardio), No clicks present (Cardio), No murmurs present (Cardio) and Peripheral pulses 2+ throughout RATE: regular rate RHYTHM: regular rhythm HEART SOUNDS: S1 normal heart sound present and S2 normal heart sound present PERIPHERAL PULSES: Peripheral pulses 2+ throughout GI: COMMON NORMALS: Normal to inspection, nondistended, normoactive bowel sounds present, Soft to palpation, non-tender and no masses PALPATION: Yes Soft to palpation : COMMON NORMALS: Yes no CVA tenderness BLADDER/KIDNEY EXAM: Yes no CVA tenderness Back/Pelvis: COMMON NORMALS: no CVA tenderness Extremity: COMMON NORMALS: normal to inspection Neuro: COMMON NORMALS: patient oriented x3 SENSORIUM/ORIENTATION: Yes alert GAIT: Yes Normal gait present Skin: GENERAL SKIN EXAM: dry skin Course Vital Signs: Vital signs: Vital Signs Temperature 98.5 F 06/06/22 11:02 Pulse Rate 88 03/04/23 11:02 Respiratory Rate 16 06/06/22 11:02 Blood Pressure 138/74 06/06/22 11:02 Pulse Oximetry 96 06/06/22 11:02 Oxygen Delivery Me thod 06/06/22 11:02 MDM - COVID Medical Decision Making Patient is a 86-year-old male comes to the ED with upper respiratory symptoms. Patient visited his daughter in assisted living on Wednesday and she tested positive for COVID on Wednesday. His symptoms started this . He reports subjective fever, chills, nasal congestion and drainage, mild nonproductive cough, sore throat, headache and fatigue. He has had just a couple episodes of loose stool over the past several days. He is able to tolerate p.o. food and fluids. Denies any other symptoms. Vital stable. Chest x-ray shows no acute findings. Influenza and strep were negative. COVID positive. Patient is stable for discharge home and diagnosed with COVID. He was sent home with a prescription for Medrol Dosepak. Return to ED precautions given. Follow-up with PCP within the next week for reevaluation. Patient understood and agreed with plan. Lab Data I reviewed the patient's lab results. Radiology Impressions Chest X-Ray 06/06/22 11:01 IMPRESSION: 1. No significant airspace consolidation concerning for pneumonia. 2. Stable cardiomegaly. Laboratory Results Influenza Type A Ag negative (Negative) 06/06/22 11:12 Influenza Type B Ag negative (Negative) 06/06/22 11:12 SARS-CoV-2 Ag (Rapid) positive (Negative) 06/06/22 11:12 Group A Strep Rapid Negative (Negative) 06/06/22 11:28 SARS-CoV-2 Antigen (Rapid) positive (Negative) 06/06/22 11:12 Discharge Plan Discharge Patient Disposition: Home Clinical Impression: COVID Condition: Stable Prescriptions: New methylprednisolone 4 mg tablets,dose pack See Rx Instructions .ROUTE .COMPLEX Qty: 21 0RF Rx Instructions: orally per package directions No Action multivitamin Tablet 1 tab PO DAILY cholecalciferol (vitamin D3) 25 mcg (1,000 unit) capsule 25 mcg PO DAILY (DME) FreeStyle Mandeep 2 [place] Misc See Rx Instructions .Route Qty: 1 0RF Rx Instructions: Check 4 - 6 times a day. (DME) FreeStyle Mandeep 2 Sensor Kit See Rx Instructions .Route Qty: 8 3RF Rx Instructions: Change every 14 days. (DME) pen needle, diabetic [Comfort EZ Pen [place]] 33 gauge x 5/32 needle See Rx Instructions .Route Qty: 100 3RF Rx Instructions: As directed insulin aspart U-100 [Novolog FlexPen U-100 Insulin] 100 unit/mL (3 mL) insulin pen 10 unit SUBCUT TID insulin glargine 100 unit/mL solution 22 unit SUBCUT DAILY tamsulosin 0.4 mg capsule 0.4 mg PO DAILY lactulose 10 gram/15 mL solution 30 ml PO Q6H PRN (Reason: constipation) 3 Days Qty: 360 0RF cyanocobalamin (vitamin B-12) [B-12 DOTS] 500 mcg Tablet 1,000 mcg PO DAILY pantoprazole [Protonix] 40 mg Tablet,Delayed Release (Dr/Ec) 40 mg PO DAILY hydrocodone-acetaminophen 5-325 mg tablet 1 tab PO Q6H PRN (Reason: Pain) simvastatin 80 mg Tablet 40 mg PO QPM Metamucil (with sugar) 3.4 gram Powder In Packet 1 packet PO BID PRN (Reason: Constipation) Qty: 14 0RF Discharge Orders: Discharge ED (Routine); Ordered 06/06/22 Ordered By: Philippe Maxwell Referrals: Baldev Issa, DO [Primary Care Provider] - Discharge Diet: Regular Discharge Activity: Increase activity as tolerated Patient Instructions: COVID-19 (Coronavirus Disease 2019) (ED) Activity Restrictions/Additional Instructions: Follow-up with medical provider as directed in the next 3 to 5 days for reevaluation. Take medications as prescribed. Return to the ER or your medical provider if condition worsens. Please read and understand discharge instructions. Thank you for choosing [facility] for your healthcare needs today. Please realize this is an emergency room and that we are providing you with a medical screening exam and this may not be complete and all inclusive of all the testing and or work up that you may need to determine your ailment or severity of your illness. It is very important that you follow up as instructed or that you return to the Emergency Department should you have concerns or if your condition changes or worsens in any way. Coding Level of Care Code ED X [employer] Developing Machine Operator for Zainab Rashid
[2022-06-06 11:39] LABS: Influenza A by IFA negative (Negative); Influenza B by IFA negative (Negative); SARS Covid-2 Antigen positive (Negative)
[2022-06-06 12:06] LABS: Rapid Strep A Test Negative (Negative)
== END 2022-06-06 12:22 | disposition home or self-care (01) ==
PROVIDERS: Emergency Provider Physician Assistant; PCP Emergency Medicine Emergency Medical Services
DX: U07.1 COVID-19 (principal)
CPT/HCPCS: 71045; 87081; 87426; 87804; 87880; 99284

== ENCOUNTER 2022-06-22 13:00 | Outpatient (CLI) | payer OTHER, SELFPAY ==
--- NOTE | 2022-06-22 13:30 | XR_ITS ---
WS: [id number] SCREENING DEXA SCAN [facility] CLINICAL INFORMATION: Osteoporosis COMPARISON: None. FINDINGS: The L1-L4 bone mineral density measures 1.510 g/cm2. This corresponds to a T score score of 2.4 and Z score of 3.5. Left femoral neck bone mineral density measures 1.047 g/cm2. This corresponds to a T score of -0.4 an d Z score of 1.2. Right femoral neck bone mineral density measures 1.022 g/cm2. This corresponds to a T score -0.5of an d Z score of 1.0. Mean femoral neck bone mineral density measures 1.034 g/cm2. This corresponds to a T score of -0.5 an d Z score of 1.1. XR/XR DEXA axial skeleton* [id number] IMPRESSION: Normal bone mineralization lumbar spine and femoral necks since. Patient's FRAX calculated 10 year probability for major osteoporotic fracture i s 15.4 % and osteoporotic hip fracture is 10.8%.
== END 2022-06-22 13:01 | disposition home or self-care (01) ==
PROVIDERS: PCP Emergency Medicine Emergency Medical Services; Visit Provider Internal Medicine
DX: M81.0 Age-related osteoporosis without current pathological fracture (principal)
CPT/HCPCS: 77080

== ENCOUNTER 2022-07-01 13:20 | Emergency (ER) | payer OTHER, SELFPAY ==
[2022-07-01 13:21] VITALS: BP 150/84; PULSE 85; TEMP 36.6; O2SAT 96; BMI 24.5
--- NOTE | 2022-07-01 13:50 | CT_ITS ---
WS: [id number] CT HEAD TECHNIQUE: Noncontrast CT of the head obtained from the skullbase to the vertex. CLINICAL INFORMATION: fall and hit head COMPARISON: None. DLP: 1056.[address] scans at [facility] use at least one of these dose optimization techniques: automated e xposure control; mA and/or kV adjustment per patient size (includes targeted exams where dose is matc hed to clinical indication); or iterative reconstruction. FINDINGS: No evidence of intracranial hemorrhage or mass effect. Ventricular system and basal cisterns are [place] nt. Moderate small vessel changes with moderate parenchymal volume loss. No extra-axial fluid collect ions. 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 Mastoid air cells well aerated. Small retention cyst LEFT posterior ethmoid air cells. CT/CT head wo con* [id number] IMPRESSION: 1. No evidence of intracranial hemorrhage or mass effect. 2. Moderate small vessel changes. Moderate parenchymal volume loss. 3. 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 4. No acute intracranial findings.
--- NOTE | 2022-07-01 13:50 | XR_ITS ---
WS: [id number] Exam: XR chest 1V portable [id number] Date/Time of Exam: 07/01/2022 1:52 PM Reason For Exam: cp Comparison 06/06/2022. The lungs are clear and fully expanded. The heart is enlarged but unchanged in size. No pleural effus ions. The mediastinum is normal in contour. Bony structures are intact. XR/XR chest 1V portable [id number] IMPRESSION: 1. Cardiac enlargement. No acute process.
[2022-07-01 13:52] VITALS: PULSE 76; RESP 16; O2SAT 93
--- NOTE | 2022-07-01 13:52 | W.ED.FALL ---
Documented by User: VLAD Adam 07/02/22 07:08 HPI - Fall General: Chief Complaint: Fall Stated Complaint: WEAKNESS/ FALL Time Seen by Provider: 07/01/22 13:29 History of Present Illness: Patient is an 86-year-old male comes to the ED with fall and generalized weakness. Patient says his fall occurred about 2 weeks ago. He was just getting out of the shower and drying his head off and he lost his balance and fell backwards and back of head hit the door. Denies any loss of consciousness, nausea/vomiting or seizure-like activity. Endorses having a headache after fall. He still is having a very mild headache today. Endorses having generalized weakness since fall. Patient ambulates at home on occasion with a cane especially with going longer distances. Denies any chest pain, shortness of breath, fevers, nausea/vomiting, abdominal pain, bladder or bowel symptoms. Associated symptoms-after fall: Reports headache(s); Denies abdominal pain, chest pain, hematuria or neck pain Review of Systems Const: Reports: fatigue (Generalized weakness); Denies: fever(s) or chills Eyes: Denies: change in vision or eye discomfort ENMT: Denies: throat pain, odynophagia, nasal discharge or nasal congestion Card: Denies: chest pain, palpitations, edema, swelling of feet/ankles, dyspnea on exertion or orthopnea Resp: Denies: dyspnea, productive cough or non-productive cough GI: Denies: abdominal pain, nausea, vomiting, diarrhea, constipation or hematochezia : Denies: flank pain, difficulty urinating, dysuria or hematuria Musc: Denies: neck pain, back pain or extremity swelling Skin/Breast: Denies: rash or new lesions Neuro: Reports: headache(s); Denies: numbness in extremities or weakness in extremities PFSH ED PFSH: Medical History Anemia 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 Diabetes type 2, controlled 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] GERD (gastroesophageal reflux disease) Hyperlipidemia associated with type 2 diabetes mellitus Hypertension Postoperative ileus Tick fever Type 2 diabetes mellitus Surgical History History of bone marrow biopsy (06/08/19) Bone marrow aspiration and biopsy Hx of colonoscopy Hx of esophagogastroduodenoscopy (07/28/17) EGD and colonoscopy Hx of esophagogastroduodenoscopy (02/22/18) Family History Mother Diabetes Father Cancer Other Hypertension Denies family history of CAD (coronary artery disease) Clotting disorder Dementia Hyperlipidemia Psychiatric illness Chronic kidney disease (CKD) Suicide Anesthesia complication Bleeding disorder Lung disease Stroke Social History Smoking and tobacco status: never smoked Alcohol intake: never Marital status: / Current occupational status: retired Physical Exam Const: COMMON NORMALS: patient oriented x3 HENMT: COMMON NORMALS: normocephalic HEAD & SCALP: normocephalic MOUTH: Normal oral and palatal mucosa present THROAT: posterior oropharynx normal and uvula midline Eye: COMMON NORMALS: Equal, round and reactive pupils present and EOMs intact bilaterally GENERAL EYE: appearance normal, both eyes and all related structures PUPIL: Yes Equal, round and reactive pupils present Neck/C-Spine: COMMON NORMALS: supple GENERAL: Yes normal visual inspection Lymph: LYMPHATIC: no lymphadenopathy noted Resp: COMMON NORMALS: normal respiratory effort, No retractions, No use of accessory muscles and clear to auscultation bilaterally AUSCULTATION: clear to auscultation bilaterally Cardio: COMMON NORMALS: regular rate, regular rhythm, S1 normal heart sound present, S2 normal heart sound present, No gallops present (Cardio), No clicks present (Cardio), No murmurs present (Cardio) and Peripheral pulses 2+ throughout RATE: regular rate RHYTHM: regular rhythm HEART SOUNDS: S1 normal heart sound present and S2 normal heart sound present PERIPHERAL PULSES: Peripheral pulses 2+ throughout GI: COMMON NORMALS: Normal to inspection, nondistended, normoactive bowel sounds present, Soft to palpation, non-tender and no masses PALPATION: Yes Soft to palpation : COMMON NORMALS: Yes no CVA tenderness BLADDER/KIDNEY EXAM: Yes no CVA tenderness Back/Pelvis: COMMON NORMALS: no CVA tenderness Extremity: GENERAL: Yes normal exam except as noted Neuro: COMMON NORMALS: patient oriented x3, CN's II-XII intact bilaterally, moves all extremities, no focal motor deficits and no sensory deficits noted SPEECH: speech normal SENSORY EXAM: Yes extremities (intact) MOTOR EXAM: 5/5 motor strength present throughout Skin: COMMON NORMALS: no rashes or lesions noted GENERAL SKIN EXAM: no rashes or lesions noted and dry skin Course Vital Signs: Vital signs: Vital Signs Temperature 97.8 F 07/01/22 13:21 Pulse Rate 76 07/01/22 13:52 Respiratory Rate 16 07/01/22 13:52 Blood Pressure 150/84 07/01/22 13:21 Pulse Oximetry 93 07/01/22 13:52 Oxygen Delivery Me thod 07/01/22 13:52 MDM - Fall Medical Decision Making Patient is an 86-year-old male comes to the ED with fall and generalized weakness. Patient says his fall occurred about 2 weeks ago. He was just getting out of the shower and drying his head off and he lost his balance and fell backwards and back of head hit the door. Denies any loss of consciousness, nausea/vomiting or seizure-like activity. Endorses having a headache after fall. He still is having a very mild headache today. Endorses having generalized weakness since fall. Patient ambulates at home on occasion with a cane especially with going longer distances. Denies any chest pain, shortness of breath, fevers, nausea/vomiting, abdominal pain, bladder or bowel symptoms. vitals stable. Exam benign and neuro exam no defecits. hgb of 10.9 but rest of labs unremarkable. EKG showed no acute findings and baseline trop of 37. chest xray showed no pneumonia. CT head showed no acute findings. pt handed off to Jared VENEER DRIER at shift change. Pending 2hr trop lab. Lab Data I reviewed the patient's lab results. 07/01/22 14:27 07/01/22 14:27 Radiology Impressions Chest X-Ray 07/01/22 13:50 IMPRESSION: 1. Cardiac enlargement. No acute process. Head CT 07/01/22 13:50 IMPRESSION: 1. No evidence of intracranial hemorrhage or mass effect. 2. Moderate small vessel changes. Moderate parenchymal volume loss. 3. 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 4. No acute intracranial findings. Laboratory Results WBC 4.3 10^3/uL (4.0-10.0) 07/01/22 14:27 RBC 3.84 10^6/uL (4.1-5.3) L 07/01/22 14: Hgb 10.9 g/dL (11.7-16.6) L 07/01/22 14: Hct 34.4 % (42.0-52.0) L 07/01/22 14: MCV 89.6 fl (80-94) 07/01/22 14: MCH 28.4 pg (28.0-34.0) 07/01/22 14: MCHC 31.7 g/dL (30.0-36.0) 07/01/22 14: RDW 17.2 % (12.1-15.1) H 07/01/22 14: Plt Count 196 10^3/cmm (130-400) 07/01/22 14: MPV 10.5 fL (7.4-10.4) H 07/01/22 14: Neut % (Auto) 73.6 % 07/01/22 14: Lymph % (Auto) 17.3 % 07/01/22 14:27 [place] % (Auto) 8.0 % 07/01/22 14: Eos % (Auto) 0.9 % 07/01/22 14: Baso % (Auto) 0.2 % 07/01/22 14: Neut # (Auto) 3.14 10^3/uL (1.8-7.7) 07/01/22 14: Lymph # (Auto) 0.7 10^3/uL (0.8-4.8) L 07/01/22 14: [place] # (Auto) 0.3 10^3/uL (0.2-0.9) 07/01/22 14: Eos # (Auto) 0.0 10^3/uL (0.0-0.8) 07/01/22 14: Baso # (Auto) 0.0 10^3/uL (0.0-0.1) 07/01/22 14: Nucleated RBC % (auto) 0 % 07/01/22 14: Nucleated RBCs # 0.0 /100WBC 07/01/22 14: Sodium 135 mmol/L (136-145) L 07/01/22 14: Potassium 3.7 mmol/L (3.5-5.1) 07/01/22 14:27 Chloride 101 mmol/L (98-107) 07/01/22 14:27 Carbon Dioxide 24 mmol/L (22-29) 07/01/22 14:27 Anion Gap 13.7 (5-19) 07/01/22 14:27 BUN 30 mg/dL (8-23) H 07/01/22 14:27 Creatinine 1.0 mg/dL (0.7-1.2) 07/01/22 14:27 GFR Calculation Not Reportable 07/01/22 14:27 Glucose 197 mg/dL (65-115) H 07/01/22 14:27 Calculated Osmolality 292 mOsm/kg (285-295) 07/01/22 14:27 Calcium 8.7 mg/dL (8.5-10.5) 07/01/22 14:27 Total Bilirubin 0.2 mg/dL (0.15-1.2) 07/01/22 14:27 AST 18 U/L (0-40) 07/01/22 14:27 ALT 15 U/L (0-41) 07/01/22 14:27 Alkaline Phosphatase 67 U/L (40-130) 07/01/22 14:27 Troponin T Baseline 37 ng/L (0-15) H 07/01/22 14:27 Troponin T 120 Minute 36.12 ng/L (0-15) H 07/01/22 16:21 Delta Troponin T -0.88 ABS# (0-10) L 07/01/22 16:21 NT-Pro-B Natriuret Pep 326 pg/mL (0-450) 07/01/22 14:27 Total Protein 6.2 g/dL (6.6-8.7) L 07/01/22 14:27 Albumin 3.9 g/dL (3.5-5.2) 07/01/22 14:27 Globulin 2.3 g/dL (1.3-4.6) 07/01/22 14:27 EKG Data EKG 1: EKG interpretation date: 07/01/22 Interpretation: Sinus rhythm, no ST segment elevation or depression seen. 75 bpm. Discharge Plan Discharge Patient Disposition: Home Clinical Impression: Essential tremor Fall Qualifiers: Encounter type: initial encounter Qualified Code(s): W19.XXXA - Unspecified fall, initial encounter Anemia Qualifiers: Anemia type: unspecified type Qualified Code(s): D64.9 - Anemia, unspecified Condition: Stable Prescriptions: New primidone 50 mg tablet 50 mg PO BID 30 Days Qty: 60 0RF No Action multivitamin Tablet 1 tab PO DAILY@12 cholecalciferol (vitamin D3) 25 mcg (1,000 unit) capsule 25 mcg PO DAILY@12 (DME) FreeStyle Mandeep 2 [place] Misc See Rx Instructions .Route Qty: 1 0RF Rx Instructions: Check 4 - 6 times a day. (DME) FreeStyle Mandeep 2 Sensor Kit See Rx Instructions .Route Qty: 8 3RF Rx Instructions: Change every 14 days. (DME) pen needle, diabetic [Comfort EZ Pen [place]] 33 gauge x 5/32 needle See Rx Instructions .Route Qty: 100 3RF Rx Instructions: As directed insulin aspart U-100 [Novolog FlexPen U-100 Insulin] 100 unit/mL (3 mL) insulin pen 0 - 5 unit SUBCUT TID tamsulosin 0.4 mg capsule 0.4 mg PO BEDTIME cyanocobalamin (vitamin B-12) [Vitamin B-12] 500 mcg Tablet 1,000 mcg PO DAILY@12 pantoprazole [Protonix] 40 mg Tablet,Delayed Release (Dr/Ec) 40 mg PO QAM simvastatin 80 mg Tablet 40 mg PO QPM Zyrtec 10 mg Tablet 10 mg PO DAILY Lantus Solostar U-100 Insulin 100 unit/mL (3 mL) Insulin Pen 16 unit SUBCUT QAM Discharge Orders: Discharge ED (Routine); Ordered 07/01/22 Ordered By: Matt Coleman Referrals: Baldev Issa DO [Primary Care Provider] - Discharge Diet: Regular Discharge Activity: Increase activity as tolerated Patient Instructions: Fall Prevention for Older Adults (ED), Anemia (ED) Activity Restrictions/Additional Instructions: Follow-up with your primary care provider in the next 3 to 5 days for reevaluation. Continue taking all home medications as previously prescribed. Return to the ER or your medical provider if condition worsens. Please read and understand discharge instructions. Start Primidone 50 mg two times daily for tremor, follow-up with primary care in one week for recheck, Return to ER as needed for new concerns Thank you for choosing [facility] for your healthcare needs today. Please realize this is an emergency room and that we are providing you with a medical screening exam and this may not be complete and all inclusive of all the testing and or work up that you may need to determine your ailment or severity of your illness. It is very important that you follow up as instructed or that you return to the Emergency Department should you have concerns or if your condition changes or worsens in any way. Sign Out Sign Out Data: Patient Sign Out occurred on 07/01/22 at 17:17. Patient's care was discussed, and care was transferred from to Matt Coleman. 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] GERD (gastroesophageal reflux disease) Hyperlipidemia associated with type 2 diabetes mellitus Hypertension Postoperative ileus Tick fever Type 2 diabetes mellitus Surgical History History of bone marrow biopsy (06/08/19) Bone marrow aspiration and biopsy Hx of colonoscopy Hx of esophagogastroduodenoscopy (07/28/17) EGD and colonoscopy Hx of esophagogastroduodenoscopy (02/22/18) Family History Mother Diabetes Father Cancer Other Hypertension Denies family history of CAD (coronary artery disease) Clotting disorder Dementia Hyperlipidemia Psychiatric illness Chronic kidney disease (CKD) Suicide Anesthesia complication Bleeding disorder Lung disease Stroke Social History Smoking and tobacco status: never smoked Alcohol intake: never Marital status: / Current occupational status: retired Course Vital Signs: Vital signs: Vital Signs Temperature 97.8 F 07/01/22 13:21 Pulse Rate 76 07/01/22 13:52 Respiratory Rate 16 07/01/22 13:52 Blood Pressure 150/84 07/01/22 13:21 Pulse Oximetry 93 07/01/22 13:52 Oxygen Delivery Me thod 07/01/22 13:52 MDM - Fall Medical Decision Making Patient is an 86-year-old male comes to the ED with fall and generalized weakness. Patient says his fall occurred about 2 weeks ago. He was just getting out of the shower and drying his head off and he lost his balance and fell backwards and back of head hit the door. Denies any loss of consciousness, nausea/vomiting or seizure-like activity. Endorses having a headache after fall. He still is having a very mild headache today. Endorses having generalized weakness since fall. Patient ambulates at home on occasion with a cane especially with going longer distances. Denies any chest pain, shortness of breath, fevers, nausea/vomiting, abdominal pain, bladder or bowel symptoms. vitals stable. Exam benign and neuro exam no defecits. hgb of 10.9 but rest of labs unremarkable. EKG showed no acute findings and baseline trop of 37. chest xray showed no pneumonia. CT head showed no acute findings. pt handed off to Jared VENEER DRIER at shift change. Pending 2hr trop lab. 2-hour troponin was unremarkable. Reviewed labs with patient who was concerned about his tremor that he has been having worsening symptoms of. Patient reports that is difficult for him to button his shirt and do other activities especially if he becomes nervous or restless. Patient also was concerned he may have a inner ear issue for allergies. Patient does report that the use of Zyrtec does seem to help with his dizziness and his allergy symptoms. Recommend patient continue with those medications to help with his dizziness and/or allergies. We will do a trial of primidone for patient's tremor as it appears to be more of a senile tremor but recommended patient follow-up with primary care in 2 to 3 weeks for recheck. Patient states he has an appointment for 26 July. Patient agreed to treatment plan and need for follow-up or return to the ER. Lab Data 07/01/22 14:27 07/01/22 14:27 Radiology Impressions Chest X-Ray 07/01/22 13:50 IMPRESSION: 1. Cardiac enlargement. No acute process. Head CT 07/01/22 13:50 IMPRESSION: 1. No evidence of intracranial hemorrhage or mass effect. 2. Moderate small vessel changes. Moderate parenchymal volume loss. 3. 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 4. No acute intracranial findings. Laboratory Results WBC 4.3 10^3/uL (4.0-10.0) 07/01/22 14: RBC 3.84 10^6/uL (4.1-5.3) L 07/01/22 14:27 Hgb 10.9 g/dL (11.7-16.6) L 07/01/22 14:27 Hct 34.4 % (42.0-52.0) L 07/01/22 14:27 MCV 89.6 fl (80-94) 07/01/22 14:27 MCH 28.4 pg (28.0-34.0) 07/01/22 14:27 MCHC 31.7 g/dL (30.0-36.0) 07/01/22 14:27 RDW 17.2 % (12.1-15.1) H 07/01/22 14:27 Plt Count 196 10^3/cmm (130-400) 07/01/22 14:27 MPV 10.5 fL (7.4-10.4) H 07/01/22 14:27 Neut % (Auto) 73.6 % 07/01/22 14:27 Lymph % (Auto) 17.3 % 07/01/22 14:27 [place] % (Auto) 8.0 % 07/01/22 14:27 Eos % (Auto) 0.9 % 07/01/22 14: Baso % (Auto) 0.2 % 07/01/22 14:27 Neut # (Auto) 3.14 10^3/uL (1.8-7.7) 07/01/22 14:27 Lymph # (Auto) 0.7 10^3/uL (0.8-4.8) L 07/01/22 14:27 [place] # (Auto) 0.3 10^3/uL (0.2-0.9) 07/01/22 14:27 Eos # (Auto) 0.0 10^3/uL (0.0-0.8) 07/01/22 14:27 Baso # (Auto) 0.0 10^3/uL (0.0-0.1) 07/01/22 14:27 Nucleated RBC % (auto) 0 % 07/01/22 14:27 Nucleated RBCs # 0.0 /100WBC 07/01/22 14:27 Sodium 135 mmol/L (136-145) L 07/01/22 14:27 Potassium 3.7 mmol/L (3.5-5.1) 07/01/22 14:27 Chloride 101 mmol/L (98-107) 07/01/22 14:27 Carbon Dioxide 24 mmol/L (22-29) 07/01/22 14:27 Anion Gap 13.7 (5-19) 07/01/22 14:27 BUN 30 mg/dL (8-23) H 07/01/22 14:27 Creatinine 1.0 mg/dL (0.7-1.2) 07/01/22 14:27 GFR Calculation Not Reportable 07/01/22 14:27 Glucose 197 mg/dL (65-115) H 07/01/22 14:27 Calculated Osmolality 292 mOsm/kg (285-295) 07/01/22 14:27 Calcium 8.7 mg/dL (8.5-10.5) 07/01/22 14:27 Total Bilirubin 0.2 mg/dL (0.15-1.2) 07/01/22 14:27 AST 18 U/L (0-40) 07/01/22 14:27 ALT 15 U/L (0-41) 07/01/22 14:27 Alkaline Phosphatase 67 U/L (40-130) 07/01/22 14:27 Troponin T Baseline 37 ng/L (0-15) H 07/01/22 14:27 Troponin T 120 Minute 36.12 ng/L (0-15) H 07/01/22 16:21 Delta Troponin T -0.88 ABS# (0-10) L 07/01/22 16:21 NT-Pro-B Natriuret Pep 326 pg/mL (0-450) 07/01/22 14:27 Total Protein 6.2 g/dL (6.6-8.7) L 07/01/22 14:27 Albumin 3.9 g/dL (3.5-5.2) 07/01/22 14:27 Globulin 2.3 g/dL (1.3-4.6) 07/01/22 14:27 Discharge Plan Discharge Patient Disposition: Home Clinical Impression: Essential tremor Fall Qualifiers: Encounter type: initial encounter Qualified Code(s): W19.XXXA - Unspecified fall, initial encounter Anemia Qualifiers: Anemia type: unspecified type Qualified Code(s): D64.9 - Anemia, unspecified Condition: Stable Prescriptions: New primidone 50 mg tablet 50 mg PO BID 30 Days Qty: 60 0RF No Action multivitamin Tablet 1 tab PO DAILY@12 cholecalciferol (vitamin D3) 25 mcg (1,000 unit) capsule 25 mcg PO DAILY@12 (DME) FreeStyle Mandeep 2 [place] Misc See Rx Instructions .Route Qty: 1 0RF Rx Instructions: Check 4 - 6 times a day. (DME) FreeStyle Mandeep 2 Sensor Kit See Rx Instructions .Route Qty: 8 3RF Rx Instructions: Change every 14 days. (DME) pen needle, diabetic [Comfort EZ Pen [place]] 33 gauge x 5/32 needle See Rx Instructions .Route Qty: 100 3RF Rx Instructions: As directed insulin aspart U-100 [Novolog FlexPen U-100 Insulin] 100 unit/mL (3 mL) insulin pen 0 - 5 unit SUBCUT TID tamsulosin 0.4 mg capsule 0.4 mg PO BEDTIME cyanocobalamin (vitamin B-12) [Vitamin B-12] 500 mcg Tablet 1,000 mcg PO DAILY@12 pantoprazole [Protonix] 40 mg Tablet,Delayed Release (Dr/Ec) 40 mg PO QAM simvastatin 80 mg Tablet 40 mg PO QPM Zyrtec 10 mg Tablet 10 mg PO DAILY Lantus Solostar U-100 Insulin 100 unit/mL (3 mL) Insulin Pen 16 unit SUBCUT QAM Discharge Orders: Discharge ED (Routine); Ordered 07/01/22 Ordered By: Matt Coleman Referrals: Baldev Issa DO [Primary Care Provider] - Discharge Diet: Regular Discharge Activity: Increase activity as tolerated Patient Instructions: Fall Prevention for Older Adults (ED), Anemia (ED) Activity Restrictions/Additional Instructions: Follow-up with your primary care provider in the next 3 to 5 days for reevaluation. Continue taking all home medications as previously prescribed. Return to the ER or your medical provider if condition worsens. Please read and understand discharge instructions. Start Primidone 50 mg two times daily for tremor, follow-up with primary care in one week for recheck, Return to ER as needed for new concerns Thank you for choosing [facility] for your healthcare needs today. Please realize this is an emergency room and that we are providing you with a medical screening exam and this may not be complete and all inclusive of all the testing and or work up that you may need to determine your ailment or severity of your illness. It is very important that you follow up as instructed or that you return to the Emergency Department should you have concerns or if your condition changes or worsens in any way. Sign Out Sign Out Data: Patient Sign Out occurred on 07/01/22 at 17:17. Patient's care was discussed, and care was transferred from to Matt Coleman. Coding Level of Care Code ED Front Desk Agent for Zainab Rashid
--- NOTE | 2022-07-01 14:01 | ECG_ITS ---
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 Measurements Intervals [place] Rate: 74 P: 52 CO: 157 QRS: 24 QRSD: 96 T: 13 QT: 369 QTc: 411 Interpretive Statements SINUS RHYTHM LOW QRS VOLTAGE IN PRECORDIAL LEADS [QRS DEFLECTION < 1.0 mV IN CHEST LEADS] POSSIBLE RIGHT VENTRICULAR CONDUCTION DELAY [RSR (QR) IN V1/V2] No previous ECG available for comparison Electronically Signed On 07-01-2022 23:53:59 CDT by Stella Franco M.D. [id number]
[2022-07-01 14:55] LABS: Basophils % 0.2 %; Eosinophils % 0.9 %; Hematocrit 34.4 % (42.0-52.0); Hemoglobin 10.9 g/dL (11.7-16.6); Lymphocytes # 0.7 10^3/uL (0.8-4.8); Lymphocytes % 17.3 %; Mean Corpuscular HGB Conc 31.7 g/dL (30.0-36.0); Mean Corpuscular Hemoglobin 28.4 pg (28.0-34.0); Mean Corpuscular Volume 89.6 fl (80-94); Mean Platelet Volume 10.5 fL (7.4-10.4); Monocytes # 0.3 10^3/uL (0.2-0.9); Neutrophils # 3.14 10^3/uL (1.8-7.7); Neutrophils % 73.6 %; Nucleated Red Blood Cells % 0 %; Platelet Count 196 10^3/cmm (130-400); Red Blood Count 3.84 10^6/uL (4.1-5.3); Red Cell Distribution Width 17.2 % (12.1-15.1); White Blood Count 4.3 10^3/uL (4.0-10.0)
[2022-07-01 15:21] LABS: Troponin(5th) Baseline 37 ng/L (0-15)
[2022-07-01 15:28] LABS: Alanine Aminotransferase 15 U/L (0-41); Albumin Level 3.9 g/dL (3.5-5.2); Alkaline Phosphatase 67 U/L (40-130); Anion Gap 13.7 (5-19); Aspartate Amino Transferase 18 U/L (0-40); Blood Urea Nitrogen 30 mg/dL (8-23); Calcium 8.7 mg/dL (8.5-10.5); Carbon Dioxide 24 mmol/L (22-29); Chloride 101 mmol/L (98-107); Globulin 2.3 g/dL (1.3-4.6); Glucose 197 mg/dL (65-115); NT Pro B Type Natriuretic Pept 326 pg/mL (0-450); Osmolality Calculated 292 mOsm/kg (285-295); Potassium 3.7 mmol/L (3.5-5.1); Sodium 135 mmol/L (136-145); Total Bilirubin 0.2 mg/dL (0.15-1.2); Total Protein 6.2 g/dL (6.6-8.7)
--- NOTE | 2022-07-01 15:30 | PC.PHAR ---
[facility] for med list
--- NOTE | 2022-07-01 15:51 | ECG_ITS ---
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 Measurements Intervals [place] Rate: 75 P: 46 MN: 153 QRS: 6 QRSD: 91 T: 36 QT: 386 QTc: 432 Interpretive Statements SINUS RHYTHM LOW QRS VOLTAGE IN PRECORDIAL LEADS [QRS DEFLECTION < 1.0 mV IN CHEST LEADS] Compared to ECG 07/01/2022 14:01:50 No significant changes Electronically Signed On 07-02-2022 0:00:53 CDT by Stella Franco M.D. [id number]
[2022-07-01 17:24] LABS: Troponin 5 2HR 36.12 ng/L (0-15); Troponin 5 2HR Delta -0.88 ABS# (0-10)
[2022-07-01] MEDS: primidone 50 mg Tablet PO (18:00)
== END 2022-07-01 18:15 | disposition home or self-care (01) ==
PROVIDERS: Physician Assistant; Emergency Provider Nurse Practitioner Family; PCP Emergency Medicine Emergency Medical Services
DX: D64.9 Anemia, unspecified (principal); G25.0 Essential tremor; Z79.4 Long term (current) use of insulin; E11.22 Type 2 diabetes mellitus with diabetic chronic kidney disease; I12.9 Hypertensive chronic kidney disease with stage 1 through stage 4 chronic kidney disease, or unspecified chronic kidney disease; N18.30 Chronic kidney disease, stage 3 unspecified; E78.5 Hyperlipidemia, unspecified
CPT/HCPCS: 36415; 70450; 71045; 80053; 83880; 84484; 85025; 93005; 99285

== ENCOUNTER 2022-07-09 08:41 | Outpatient (CLI) | payer OTHER, SELFPAY ==
[2022-07-09] MEDS: iohexol 350 mg/mL 100 mL Btl IV (09:11)
[2022-07-09] MEDS: iohexol 350 mg/mL 100 mL Btl PO (09:12)
--- NOTE | 2022-07-09 09:30 | CTR_ITS ---
PROCEDURE INFORMATION: Exam: CT Chest With Contrast; Diagnostic Exam date and time: 07/09/2022 10:18 AM Age: 86 years old Clinical indication: Condition or disease; Cancer; Patient HX: F/u lymphoma. Continued weakness and weightloss. ; Additional info: Follow-up for lymphoma TECHNIQUE: Imaging protocol: Diagnostic computed tomography of the chest with contrast. Radiation optimization: All CT scans at this facility use at least one of these dose optimization techniques: automated exposure control; mA and/or kV adjustment per patient size (includes targeted exams where dose is matched to clinical indication); or iterative reconstruction. Contrast material: OMNI; Contrast volume: 100 ml; Contrast route: INTRAVENOUS (IV); Other contrast: Oral, OMNI 350, 100; REPORTING DATA: Count of CT and Cardiac NM exams in prior 12 months: This patient has received 2 known CTs and 0 known cardiac nuclear medicine studies in the 12 months prior to the current study. COMPARISON: [place] [id number] 11/04/2020 1:31 PM RADIATION DOSE METRICS: Total DLP (mGy-cm): 583.37 FINDINGS: Lungs: There is subsegmental atelectasis in the lung bases. There is a calcified granuloma in the right lower lobe. No pulmonary consolidation or mass. Pleural spaces: There is no pleural effusion or pneumothorax. Heart: There is moderate cardiac enlargement. Small simple pericardial effusion. Coronary arteries: There is severe coronary artery calcification. Lymph nodes: There is no mediastinal or hilar lymphadenopathy. Vasculature: There is moderate aortic atherosclerotic disease. The central pulmonary arteries are unremarkable. Bones/joints: Bones are unremarkable. Soft tissues: The extrathoracic soft tissues are unremarkable. PROCEDURE INFORMATION: Exam: CT Abdomen And Pelvis With Contrast Exam date and time: 07/09/2022 10:18 AM Age: 86 years old Clinical indication: Condition or disease; Cancer; Patient HX: F/u lymphoma. Continued weakness and weightloss. ; Additional info: Follow-up for lymphoma TECHNIQUE: Imaging protocol: Computed tomography of the abdomen and pelvis with contrast. Radiation optimization: All CT scans at this facility use at least one of these dose optimization techniques: automated exposure control; mA and/or kV adjustment per patient size (includes targeted exams where dose is matched to clinical indication); or iterative reconstruction. Contrast material: OMNI; Contrast volume: 100 ml; Contrast route: INTRAVENOUS (IV); Other contrast: Oral, OMNI 350, 100; REPORTING DATA: Count of CT and Cardiac NM exams in prior 12 months: This patient has received 2 known CTs and 0 known cardiac nuclear medicine studies in the 12 months prior to the current study. COMPARISON: 1. CT abdomen pelvis wo con [id number] 12/26/2021 1:[address] [place] [id number] 11/04/2020 1:31 PM RADIATION DOSE METRICS: Total DLP (mGy-cm): 583.37 FINDINGS: Liver: There is a macrolobulated simple cyst in the superior right lobe of the liver measuring 4.1 x 3.4 cm, similar to the finding on 11/04/2020. There is no liver mass. Gallbladder and bile ducts: The gallbladder is nondistended. No calcified stones are seen. The common bile duct is mildly dilated measuring up to 9 mm diameter. This is within the expected range for age. Pancreas: There are scattered calcifications in the pancreatic parenchyma consistent with chronic pancreatitis. There is marked atrophy of the pancreas. Spleen: The spleen is unremarkable. Adrenal glands: Stable bilateral adrenal hypertrophy. Kidneys and ureters: There is mild atrophy of both kidneys. Stomach and bowel: The stomach is unremarkable. The small bowel is nondilated. There is moderate sigmoid colonic diverticulosis without evidence of diverticulitis. Appendix: The appendix is not visible. Intraperitoneal space: There is no free air or significant intraperitoneal free fluid. Vasculature: There is moderate aortic atherosclerotic disease. Lymph nodes: There is mild left pelvic and inguinal lymph node enlargement. A left inguinal lymph node measures 25 x 15 mm on series 5, image 76, stable since 11/04/2020. A left external iliac lymph node on axial series 5, image 65 measures 24 x 8 mm, decreased since 11/04/2020 when it measured 26 x 11 mm. Normal size right common iliac and inguinal lymph nodes are stable since 11/04/2020. There are normal size retroperitoneal lymph nodes. A prominent mesenteric lymph node in the right upper quadrant measures 16 x 11 mm on series 5, image 28, stable since 11/04/2020. Urinary bladder: The bladder is decompressed. The wall is diffusely thickened. Reproductive: The prostate is markedly enlarged. Size of the prostate is similar to 12/26/2021. There is asymmetric enlargement of the left seminal vesicle without surrounding edema, also stable since 12/26/2021. Bones/joints: There is moderate degenerative disease in the lumbar spine. The pelvis and hips are unremarkable. Soft tissues: The abdominal wall is intact. CT/CT chest abdpel w/*[id number] IMPRESSION: 1. No sign of malignancy in the thorax. 2. Incidental findings above. IMPRESSION: 1. Mildly enlarged mesenteric, left inguinal and iliac lymph nodes are stable or decreased in size since 11/04/2020. Retroperitoneal and sonja hepatis lymph nodes are normal. 2. Stable prostate enlargement and muscular hypertrophy of the bladder wall. 3. Incidental findings above.
== END 2022-07-09 08:42 | disposition home or self-care (01) ==
LOC: RAD 08:44
PROVIDERS: PCP Emergency Medicine Emergency Medical Services; Visit Provider Internal Medicine Medical Oncology
DX: C88.4 Extranodal marginal zone B-cell lymphoma of mucosa-associated lymphoid tissue [MALT-lymphoma] (principal); K76.89 Other specified diseases of liver; K86.1 Other chronic pancreatitis; M19.90 Unspecified osteoarthritis, unspecified site; M47.816 Spondylosis without myelopathy or radiculopathy, lumbar region; N40.0 Benign prostatic hyperplasia without lower urinary tract symptoms
CPT/HCPCS: 71260; 74177; Q9967

== ENCOUNTER 2022-07-10 08:41 | Oncology outpatient (recurring) (ONCR) | payer OTHER, SELFPAY ==
[2022-07-10 10:05] LABS: Basophils % 0.2 %; Eosinophils % 0.8 %; Hematocrit 35.1 % (42.0-52.0); Hemoglobin 11.2 g/dL (11.7-16.6); Lymphocytes # 0.7 10^3/uL (0.8-4.8); Mean Corpuscular HGB Conc 31.9 g/dL (30.0-36.0); Mean Corpuscular Hemoglobin 28.4 pg (28.0-34.0); Mean Corpuscular Volume 89.1 fl (80-94); Mean Platelet Volume 10.7 fL (7.4-10.4); Monocytes # 0.5 10^3/uL (0.2-0.9); Monocytes % 9.2 %; Neutrophils # 3.75 10^3/uL (1.8-7.7); Neutrophils % 75.2 %; Nucleated Red Blood Cells % 0 %; Platelet Count 198 10^3/cmm (130-400); Red Blood Count 3.94 10^6/uL (4.1-5.3); Red Cell Distribution Width 16.8 % (12.1-15.1)
[2022-07-10 10:17] LABS: Estmated Average Glucose 243; Hemoglobin A1C 10.1 % (4.0-6.0)
[2022-07-10 10:30] LABS: Creatinine Urine, Random 59 mg/dL (39-259); Microalbumin Random Urine 13 ug/dL (0-20)
[2022-07-10 10:33] LABS: Microalbum Creatinine Ratio Ur 220 mg/dL (0-20)
[2022-07-10 10:39] LABS: Calcium 8.9 mg/dL (8.5-10.5); Parathyroid Hormone 45.6 pg/mL (15-65)
[2022-07-10 10:48] LABS: 25 Hydroxy Vitamin D 33 ng/mL (30-100); Alanine Aminotransferase 13 U/L (0-41); Albumin Level 3.8 g/dL (3.5-5.2); Alkaline Phosphatase 71 U/L (40-130); Anion Gap 12.6 (5-19); Aspartate Amino Transferase 14 U/L (0-40); Blood Urea Nitrogen 31 mg/dL (8-23); Calcium 8.7 mg/dL (8.5-10.5); Carbon Dioxide 25 mmol/L (22-29); Chloride 102 mmol/L (98-107); Chol HDL Ratio 3.21 mg/dL (1.0-5.00); Cholesterol 138 mg/dL (0-200); Globulin 2.1 g/dL (1.3-4.6); Glucose 331 mg/dL (65-115); HDL Cholesterol 43 mg/dL (60-100); LDL Cholesterol Calculated 76 mg/dL (50-129); LDL HDL Ratio 1.77 RATIO (0.00-3.22); Lactate Dehydrogenase 199 U/L (135-225); Osmolality Calculated 299 mOsm/kg (285-295); Potassium 4.6 mmol/L (3.5-5.1); Sodium 135 mmol/L (136-145); Thyroid Stimulating Hormone 5.04 uIU/mL (0.27-4.20); Total Bilirubin 0.2 mg/dL (0.15-1.2); Total Protein 5.9 g/dL (6.6-8.7); Triglycerides 95 mg/dL (0-150)
[2022-07-10 11:46] LABS: Iron 56 ug/dL (59-158); Total Iron Binding Capacity 215 mcg/dl; Unsaturated Iron Binding 159 ug/dL (112-347)
[2022-07-10 12:03] LABS: Vitamin B12 506 pg/mL (232-1245)
[2022-07-13 09:25] LABS: Free T4 Free Thyroxine 0.87 ng/dL (0.82-1.77)
== END 2022-08-02 23:59 | disposition home or self-care (01) ==
PROVIDERS: Internal Medicine; PCP Emergency Medicine Emergency Medical Services; Visit Provider Internal Medicine Medical Oncology
DX: Z08 Encounter for follow-up examination after completed treatment for malignant neoplasm (principal); Z85.72 Personal history of non-Hodgkin lymphomas; D64.9 Anemia, unspecified; Z92.21 Personal history of antineoplastic chemotherapy; Z92.25 Personal history of immunosuppression therapy; Z92.3 Personal history of irradiation; E11.69 Type 2 diabetes mellitus with other specified complication; E78.5 Hyperlipidemia, unspecified; E11.22 Type 2 diabetes mellitus with diabetic chronic kidney disease; N18.30 Chronic kidney disease, stage 3 unspecified; E16.0 Drug-induced hypoglycemia without coma; T38.3X5A Adverse effect of insulin and oral hypoglycemic [antidiabetic] drugs, initial encounter; Z71.3 Dietary counseling and surveillance; M81.0 Age-related osteoporosis without current pathological fracture
CPT/HCPCS: 36415; 80053; 80061; 82044; 82306; 82310; 82607; 83036; 83540; 83550; 83615; 83970; 84439; 84443; 85025; 99213; 99214

== ENCOUNTER → 2022-07-15 13:37 | Outpatient (BNVA) | payer OTHER, SELFPAY | PROVIDERS: PCP Emergency Medicine Emergency Medical Services; Visit Provider Internal Medicine | DX: E11.69 Type 2 diabetes mellitus with other specified complication (principal); E11.649 Type 2 diabetes mellitus with hypoglycemia without coma; E11.22 Type 2 diabetes mellitus with diabetic chronic kidney disease; N18.30 Chronic kidney disease, stage 3 unspecified; E78.5 Hyperlipidemia, unspecified; E16.0 Drug-induced hypoglycemia without coma; T38.3X5A Adverse effect of insulin and oral hypoglycemic [antidiabetic] drugs, initial encounter; M81.0 Age-related osteoporosis without current pathological fracture; Z71.3 Dietary counseling and surveillance; Z79.4 Long term (current) use of insulin; X58.XXXA Exposure to other specified factors, initial encounter | CPT/HCPCS: 99214 ==

== ENCOUNTER → 2022-09-01 09:50 | Outpatient (BNVA) | payer OTHER, SELFPAY | PROVIDERS: PCP Emergency Medicine Emergency Medical Services; Referring Provider Emergency Medicine Emergency Medical Services; Visit Provider Specialist | DX: G47.00 Insomnia, unspecified (principal); G25.0 Essential tremor; R26.89 Other abnormalities of gait and mobility; R41.89 Other symptoms and signs involving cognitive functions and awareness | CPT/HCPCS: 99204 ==

== ENCOUNTER → 2022-09-23 11:02 | Outpatient (BNVA) | payer OTHER, SELFPAY | PROVIDERS: PCP Emergency Medicine Emergency Medical Services; Visit Provider Internal Medicine | DX: E11.69 Type 2 diabetes mellitus with other specified complication (principal); E11.22 Type 2 diabetes mellitus with diabetic chronic kidney disease; E11.649 Type 2 diabetes mellitus with hypoglycemia without coma; N18.30 Chronic kidney disease, stage 3 unspecified; E16.0 Drug-induced hypoglycemia without coma; T38.3X5A Adverse effect of insulin and oral hypoglycemic [antidiabetic] drugs, initial encounter; E78.5 Hyperlipidemia, unspecified; Z71.3 Dietary counseling and surveillance; M81.0 Age-related osteoporosis without current pathological fracture; X58.XXXA Exposure to other specified factors, initial encounter; Z79.4 Long term (current) use of insulin; Z79.890 Hormone replacement therapy | CPT/HCPCS: 99214 ==

== ENCOUNTER → 2022-12-16 10:47 | Outpatient (BNVA) | payer OTHER, SELFPAY | PROVIDERS: PCP Emergency Medicine Emergency Medical Services; Visit Provider Registered Nurse | DX: E11.22 Type 2 diabetes mellitus with diabetic chronic kidney disease (principal); N18.30 Chronic kidney disease, stage 3 unspecified; N17.9 Acute kidney failure, unspecified | CPT/HCPCS: 80053; 80069; 82043; 82310; 83970 ==

== ENCOUNTER → 2022-12-29 10:44 | Outpatient (BNVA) | payer MEDICARE, SELFPAY | PROVIDERS: PCP Emergency Medicine Emergency Medical Services; Visit Provider Internal Medicine | DX: E16.0 Drug-induced hypoglycemia without coma (principal); T38.3X5A Adverse effect of insulin and oral hypoglycemic [antidiabetic] drugs, initial encounter; E11.69 Type 2 diabetes mellitus with other specified complication; E78.5 Hyperlipidemia, unspecified; E03.8 Other specified hypothyroidism; E11.22 Type 2 diabetes mellitus with diabetic chronic kidney disease; N18.30 Chronic kidney disease, stage 3 unspecified; E11.649 Type 2 diabetes mellitus with hypoglycemia without coma; X58.XXXA Exposure to other specified factors, initial encounter; Z79.890 Hormone replacement therapy; Z79.4 Long term (current) use of insulin | CPT/HCPCS: 99214 ==

== ENCOUNTER → 2023-05-12 11:31 | Outpatient (BNVA) | payer OTHER, SELFPAY | PROVIDERS: PCP Emergency Medicine Emergency Medical Services; Visit Provider Internal Medicine | DX: E11.69 Type 2 diabetes mellitus with other specified complication (principal); E78.5 Hyperlipidemia, unspecified; E16.0 Drug-induced hypoglycemia without coma; T38.3X5A Adverse effect of insulin and oral hypoglycemic [antidiabetic] drugs, initial encounter; E03.8 Other specified hypothyroidism; E11.22 Type 2 diabetes mellitus with diabetic chronic kidney disease; N18.30 Chronic kidney disease, stage 3 unspecified; E11.65 Type 2 diabetes mellitus with hyperglycemia; E11.649 Type 2 diabetes mellitus with hypoglycemia without coma; X58.XXXA Exposure to other specified factors, initial encounter; Z79.890 Hormone replacement therapy; Z79.4 Long term (current) use of insulin | CPT/HCPCS: 99214 ==

== ENCOUNTER → 2023-06-02 10:04 | Outpatient (BNVA) | payer OTHER, SELFPAY | PROVIDERS: PCP Emergency Medicine Emergency Medical Services; Visit Provider Registered Nurse | DX: N17.9 Acute kidney failure, unspecified (principal); E11.22 Type 2 diabetes mellitus with diabetic chronic kidney disease; N18.30 Chronic kidney disease, stage 3 unspecified | CPT/HCPCS: 80069; 81000; 82043; 82306; 82310; 83970; 85025 ==

== ENCOUNTER → 2023-08-04 13:13 | Outpatient (BNVA) | payer MEDICARE, SELFPAY | PROVIDERS: PCP Emergency Medicine Emergency Medical Services; Visit Provider Internal Medicine | DX: E11.69 Type 2 diabetes mellitus with other specified complication (principal); E78.5 Hyperlipidemia, unspecified; E16.0 Drug-induced hypoglycemia without coma; T38.3X5A Adverse effect of insulin and oral hypoglycemic [antidiabetic] drugs, initial encounter; E03.8 Other specified hypothyroidism; E11.22 Type 2 diabetes mellitus with diabetic chronic kidney disease; N18.30 Chronic kidney disease, stage 3 unspecified | CPT/HCPCS: 80053; 80061; 83036; 84443 ==

== ENCOUNTER → 2023-08-05 11:58 | Outpatient (BNVA) | payer MEDICARE, SELFPAY | PROVIDERS: PCP Emergency Medicine Emergency Medical Services; Visit Provider Internal Medicine | DX: E11.69 Type 2 diabetes mellitus with other specified complication (principal); E78.5 Hyperlipidemia, unspecified; E16.0 Drug-induced hypoglycemia without coma; T38.3X5A Adverse effect of insulin and oral hypoglycemic [antidiabetic] drugs, initial encounter | CPT/HCPCS: 82043 ==

== ENCOUNTER → 2023-10-28 11:27 | Outpatient (BNVA) | payer MEDICARE, SELFPAY | PROVIDERS: PCP Emergency Medicine Emergency Medical Services; Visit Provider Internal Medicine | DX: E16.0 Drug-induced hypoglycemia without coma (principal); T38.3X5A Adverse effect of insulin and oral hypoglycemic [antidiabetic] drugs, initial encounter; E11.69 Type 2 diabetes mellitus with other specified complication; E78.5 Hyperlipidemia, unspecified; E03.8 Other specified hypothyroidism; E11.22 Type 2 diabetes mellitus with diabetic chronic kidney disease; N18.30 Chronic kidney disease, stage 3 unspecified; E11.649 Type 2 diabetes mellitus with hypoglycemia without coma; X58.XXXA Exposure to other specified factors, initial encounter; Z79.890 Hormone replacement therapy | CPT/HCPCS: 99214 ==

== ENCOUNTER → 2024-07-13 10:49 | Outpatient (BNVA) | payer OTHER, MEDICARE, SELFPAY | PROVIDERS: PCP Emergency Medicine Emergency Medical Services; Visit Provider Internal Medicine | DX: E11.69 Type 2 diabetes mellitus with other specified complication (principal); E78.5 Hyperlipidemia, unspecified; E16.0 Drug-induced hypoglycemia without coma; T38.3X5A Adverse effect of insulin and oral hypoglycemic [antidiabetic] drugs, initial encounter; E03.8 Other specified hypothyroidism; E11.9 Type 2 diabetes mellitus without complications; E11.22 Type 2 diabetes mellitus with diabetic chronic kidney disease; N18.30 Chronic kidney disease, stage 3 unspecified | CPT/HCPCS: 80053; 80061; 82043; 83036; 84439; 84443 ==

== ENCOUNTER → 2024-07-17 11:26 | Outpatient (BNVA) | payer MEDICARE, SELFPAY | PROVIDERS: PCP Emergency Medicine Emergency Medical Services; Visit Provider Internal Medicine | DX: E16.0 Drug-induced hypoglycemia without coma (principal); T38.3X5A Adverse effect of insulin and oral hypoglycemic [antidiabetic] drugs, initial encounter; E11.69 Type 2 diabetes mellitus with other specified complication; E78.5 Hyperlipidemia, unspecified; E11.22 Type 2 diabetes mellitus with diabetic chronic kidney disease; N18.30 Chronic kidney disease, stage 3 unspecified; E03.8 Other specified hypothyroidism; E11.9 Type 2 diabetes mellitus without complications; X58.XXXA Exposure to other specified factors, initial encounter | CPT/HCPCS: 99214 ==

== ENCOUNTER → 2025-01-10 10:57 | Outpatient (BNVA) | payer OTHER, MEDICARE, SELFPAY | PROVIDERS: PCP Emergency Medicine Emergency Medical Services; Visit Provider Internal Medicine | DX: E11.22 Type 2 diabetes mellitus with diabetic chronic kidney disease (principal); N18.30 Chronic kidney disease, stage 3 unspecified; E11.69 Type 2 diabetes mellitus with other specified complication; E16.0 Drug-induced hypoglycemia without coma; T38.3X5A Adverse effect of insulin and oral hypoglycemic [antidiabetic] drugs, initial encounter; E03.8 Other specified hypothyroidism; E78.5 Hyperlipidemia, unspecified | CPT/HCPCS: 80053; 80061; 83036; 84439; 84443 ==

== ENCOUNTER → 2025-01-11 11:47 | Outpatient (BNVA) | payer OTHER, MEDICARE, SELFPAY | PROVIDERS: PCP Emergency Medicine Emergency Medical Services; Visit Provider Internal Medicine | DX: E11.22 Type 2 diabetes mellitus with diabetic chronic kidney disease (principal); N18.30 Chronic kidney disease, stage 3 unspecified; E11.69 Type 2 diabetes mellitus with other specified complication; E78.5 Hyperlipidemia, unspecified; E16.0 Drug-induced hypoglycemia without coma; T38.3X5A Adverse effect of insulin and oral hypoglycemic [antidiabetic] drugs, initial encounter; E03.8 Other specified hypothyroidism | CPT/HCPCS: 82043 ==

== ENCOUNTER → 2025-01-15 11:14 | Outpatient (BNVA) | payer OTHER, SELFPAY | PROVIDERS: PCP Emergency Medicine Emergency Medical Services; Visit Provider Internal Medicine | DX: E11.69 Type 2 diabetes mellitus with other specified complication (principal); E78.5 Hyperlipidemia, unspecified; E11.22 Type 2 diabetes mellitus with diabetic chronic kidney disease; N18.30 Chronic kidney disease, stage 3 unspecified; E11.649 Type 2 diabetes mellitus with hypoglycemia without coma; E16.0 Drug-induced hypoglycemia without coma; T38.3X5A Adverse effect of insulin and oral hypoglycemic [antidiabetic] drugs, initial encounter; E03.8 Other specified hypothyroidism; X58.XXXA Exposure to other specified factors, initial encounter; Z79.4 Long term (current) use of insulin | CPT/HCPCS: 99214 ==